=== PATIENT | female | born 1945 | race Caucasian/White ===

== ENCOUNTER 2019-12-04 00:34 | Inpatient (IN) | payer MEDICARE, SELFPAY ==
[2019-12-04] VITALS (19 sets, daily range): BP systolic 162–203; BP diastolic 52–88; PULSE 57–92; RESP 16–20; TEMP 35.9–36.6; O2SAT 99–100; BMI 23.8
--- NOTE | ~2019-12-04 | MR_ITS ---
EXAMINATION: MR brain/brain stem wo/w con DATE: 12/04/2019 10:16 INDICATION: Right-sided facial droop and slurred speech TECHNIQUE: Magnetic resonance imaging (MRI) of the brain and brainstem was performed with 10 cc of Mu ltiHance intravenous contrast. Sequences included sagittal and axial T1-weighted SE, axial diffusion- weighted FS EPI ASSET, axial T2*-weighted GRE, axial T2-weighted FLAIR Propeller, and axial T2-weight ed Propeller. Postcontrast axial and coronal T1-weighted SE was obtained. Apparent diffusion coeffici ent (ADC) maps were created. COMPARISON: None. FINDINGS: There is a small area of restricted diffusion in the left frontal lobe. There is no acute h emorrhage seen on the T2*, a hemosiderin sensitive sequence. The ventricles are normal in size. There are no extra-axial collections. Flow voids are seen in the cerebral arteries on the T2-weighted sequ ences consistent with their expected patency. Visualized orbits and soft tissues are unremarkable. Th ere are scattered areas of nonspecific increased T2-weighted signal intensity in the cerebral white m atter. A 7 mm parafalcine mass is again noted to the left of midline with MR features of a meningioma . IMPRESSION: 1. Small acute infarct in the left frontal lobe. Reviewed, dictated and finalized at location A.
--- NOTE | ~2019-12-04 | CT_ITS ---
EXAMINATION: CT abdomen pelvis wo con DATE: 12/05/2019 09:37 INDICATION: Intermittent nausea and vomiting TECHNIQUE: Computed tomography (CT) of the abdomen and pelvis was performed without intravenous contr ast. The dose-length product (DLP) was 263.53 mGy-cm. Automated exposure control and iterative recons truction technique were employed. COMPARISON: None FINDINGS: There are small pleural effusions. Mild dependent atelectasis is noted. There is cardiomega ly. Calcified coronary artery calcifications are seen. There is also calcification of the mitral jie love. The liver, spleen, pancreas, and adrenal glands are normal. A stone is present in the nondistend ed gallbladder. The kidneys are unremarkable. There is irregular wall thickening of the cecum and asc ending colon. There is an approximately 4.8 x 4.7 cm abscess in the right pericolic gutter. There are mildly prominent adjacent mesenteric lymph nodes. The appendix is normal. There are no dilated loops of bowel. There is mild lumbar spondylosis. IMPRESSION: 1. Wall thickening of the ascending colon and cecum which could reflect malignancy or inflammation. 2. Right pericolic gutter abscess contiguous with the irregular segment of colon. Consider GI and esteban gical consultation. These findings were discussed with Kay Horne PA-C at 13:27 hours on 12/05/2019. Reviewed, dictated and finalized at location A. IMPRESSION: 1. Wall thickening of the ascending colon and cecum which could reflect maligna ncy or inflammation. 2. Right pericolic gutter abscess contiguous with the irregular segment of colo n. Consider GI and surgical consultation. These findings were discussed with Kay Horne PA-C at 13:27 hours on .
--- NOTE | ~2019-12-04 | US_ITS ---
EXAMINATION:US venous doppler LE BI INDICATION:Stroke. TECHNIQUE: Multiple grayscale, color flow and Doppler images of the lower extremity deep venous syste ms were obtained and reviewed. COMPARISON:No prior studies for comparison. FINDINGS: The common femoral, superficial femoral and popliteal veins demonstrate normal respiratory variation, augmentation and compressibility. Color flow is also seen within the posterior tibial, pe roneal, greater saphenous and profunda veins. There is a Orta's cyst left popliteal fossa measuring 2.2 x 1.2 x 1.4 cm. IMPRESSION: 1: No lower extremity deep venous thrombosis. Reviewed, dictated and finalized at location A.
--- NOTE | ~2019-12-04 | XR_ITS ---
Water-soluble contrast enema INDICATION: Right paracolic abscess. Right flank discomfort. TECHNIQUE: Examination of the colon utilizing water-soluble contrast technique. COMPARISON: CT dated 12/05/2019 FINDINGS: The entire colon was filled, distending normally. No extrinsic mass effect is noted. There is persistent narrowing of the ascending colon with apple core appearance, concerning for malignancy . No extravasation of contrast is identified. There is no evidence of polyp, stricture, extravasatio n, obstruction or persistent mucosal abnormality. There is a pigtail catheter overlying the right fla nk near the ascending colon. IMPRESSION: 1: No evidence for contrast extravasation. Abnormal narrowing of the ascending colon with mucosal milena uldering, suspicious for malignancy. Reviewed, dictated and finalized at location A. IMPRESSION: 1: No evidence for contrast extravasation. Abnormal narrowing of the ascending colon with mucosal shouldering, suspicious for malignancy.
--- NOTE | ~2019-12-04 | CT_ITS ---
EXAMINATION: CT guide absc cath placement DATE: 12/06/2019 14:53 INDICATION: Right paracolic abscess. TECHNIQUE: The procedure including the risks, benefits, and alternatives was discussed with the patie nt. Risks discussed included bleeding and infection. The patient understood the risks and benefits an d agreed to proceed. The patient was confirmed to be receiving appropriate antibiotic coverage. The skin overlying the abdomen was prepped and draped in usual sterile fashion. Anesthetic was administe red with 1% lidocaine subcutaneously. An 18 gauge trochar needle was inserted into the right paracoli c abscess with CT guidance. The needle was exchanged over a wire for 6 Scottish, 8 Scottish, and 9 Scottish dilators and then for an 8.5 Scottish pigtail catheter. The catheter was stitched to the skin, and a s terile dressing was applied. The mA was adjusted according to patient size. Iterative reconstruction technique was employed. The dose-length product was 123.90 mGy-cm. There were no immediate complicati ons. FINDINGS: CT images demonstrate the catheter within the fluid collection. 6 mL fluid was aspirated fo r testing. IMPRESSION: 1. Successful CT-guided abscess drainage. 2. 6 mL lockwood, opaque, foul-smelling fluid was sent for aerobic and anaerobic cultures. Reviewed, dictated and finalized at location A. IMPRESSION: 1. Successful CT-guided abscess drainage. 2. 6 mL lockwood, opaque, foul-smelling fluid was sent for aerobic and anaerobic cul tures.
--- NOTE | ~2019-12-04 | US_ITS ---
EXAMINATION: US carotid duplex BI DATE: 12/04/2019 13:44 INDICATION: Slurred speech, right facial droop. TECHNIQUE: Grayscale, color Doppler, and pulsed Doppler images of the cervical carotid arteries were obtained. The degree of vessel stenosis is placed in one of the following categories: normal, <50%, 5 0-69%, >=70% but less than near-occlusion, near-occlusion, or total occlusion. Note that percent sten osis relative to normal distal artery lumen diameter is indirectly measured from velocity measurement s as described by Miki, et al. Radiology 2003; 229:340-346. COMPARISON: 12/04/2019 CT brain FINDINGS: There is mild plaque at the carotid bulbs and proximal internal carotid arteries. RIGHT: The right common carotid artery (CCA) peak systolic velocity (PSV) is 63.6 cm/s. The right internal c arotid artery (ICA) PSV is 90 cm/s. The right ICA end-diastolic velocity (EDV) is 20.9 cm/s. The rig t ICA/CCA PSV ratio is 1.4. Grayscale and color Doppler images yield an estimate of less than 50% sangeeta meter reduction from plaque in the ICA. The external carotid artery (ECA) PSV is 98.4 cm/s. There is antegrade flow in the right vertebral artery. LEFT: The left CCA PSV is 75.5 cm/s. The left ICA PSV is 97.3 cm/s. The left ICA EDV is 16.4 cm/s. The left ICA/CCA PSV ratio is 1.3. Grayscale and color Doppler images yield an estimate of less than 50% diam eter reduction from plaque in the ICA. The ECA PSV is 87.2 cm/s. There is antegrade flow in the left vertebral artery. IMPRESSION: 1. Less than 50% stenosis in the right internal carotid artery. 2. Less than 50% stenosis in the left internal carotid artery. Reviewed, dictated and finalized at Location A. Reviewed, dictated and finalized at location A.
--- NOTE | ~2019-12-04 | CT_ITS ---
EXAMINATION: CT brain wo con INDICATION: Slurred speech and right-sided facial droop COMPARISON: None TECHNIQUE: Standard unenhanced head CT. The dose-length product (DLP) was 605.33 mGy-cm. The mA was a djusted according to patient size. Iterative reconstruction technique was employed. FINDINGS: There is no acute intraparenchymal hemorrhage. No evidence of acute infarction. There is a 7 mm hyperdense, parafalcine mass to the left of midline adjacent to the left frontal lobe. There is mild periventricular and subcortical hypodensity probably related to small vessel ischemic disease. T here is mild prominence of the sulci and ventricles related to cerebral atrophy. Intracranial calcifi ed cerebral atherosclerosis is noted. There are no extra-axial collections. There is no mass effect o r midline shift. The orbits and soft tissues are unremarkable. The visualized sinuses and mastoid ai r cells are well aerated. IMPRESSION: 1. No acute intracranial abnormality. 2. Age related findings. 3. Hyperdense left parafalcine mass most consistent with a meningioma. Reviewed, dictated and finalized at location A.
--- NOTE | 2019-12-04 00:40 | PC.NURSE ---
PER DR MERCADO NO ED PROTOCOL TO BE STARTED AT THIS TIME
--- NOTE | 2019-12-04 01:27 | ECG_ITS ---
Measurements Intervals [place] Rate: 96 P: 54 TX: 182 QRS: -29 QRSD: 101 T: 50 QT: 380 QTc: 480 Interpretive Statements SINUS RHYTHM POSSIBLE LEFT ATRIAL ENLARGEMENT INCOMPLETE RIGHT BUNDLE BRANCH BLOCK BORDERLINE R WAVE PROGRESSION, ANTERIOR LEADS BORDERLINE ECG Electronically Signed On 12-04-2019 8:53:15 CDT by Quincy Clarke D.O.
[2019-12-04 01:56] LABS: Basophils Absolute Auto 0.1 K/mm3 (0.0-0.1); Basophils Percent Auto 0.5 % (0.2-1.2); Eosinophils Absolute Auto 0.1 K/mm3 (0-0.3); Eosinophils Percent Auto 0.8 % (0-4.4); Hematocrit 22.2 % (37.0-47.0); Immature Granulocyte Absolute 0.22 K/mm3 (0.00-0.031); Immature Granulocyte Percent A 2.2 % (0-0.5); Mean Corpuscular HGB Conc 29.7 g/dl (32-36); Mean Corpuscular Hemoglobin 23.7 pg (26-34); Mean Corpuscular Volume 79.9 fl (80-100); Mean Platelet Volume 8.5 fl (7.4-10.4); Monocytes Absolute Auto 0.9 K/mm3 (0.1-0.6); Monocytes Percent Auto 9.4 % (2.6-8.5); Neutrophils Absolute Auto 7.5 K/mm3 (1.3-6.7); Neutrophils Percent Auto 75.1 % (45.5-73.1); Platelet Count Result 642 k/mm3 (150-375); Red Blood Count 2.78 M/mm3 (4.2-5.4); Red Cell Distribution Width 16.1 % (11.5-14.5)
[2019-12-04 01:57] LABS: Add Urine Microscopic? NO; Appearance Urine Clear (Clear); Bilirubin Urine Negative (Negative); Blood Urine Negative (Negative); Color Urine Colorless (Yellow); Glucose Urine UA Negative (Negative); Ketones Urine Negative (Negative); Leukocyte Esterase Ur Negative LEU/UL (Negative); Nitrate Urine Negative (Negative); Protein Urine Negative (Negative); Urobilinogen Urine Negative mg/dL (<2.0)
[2019-12-04 02:14] LABS: INR 1.2; Prothrombin Time 14.6 Seconds (11.1-14.7)
[2019-12-04 02:15] LABS: Specific Grav Ur 1.004 (1.001-1.035)
[2019-12-04 02:18] LABS: Alanine Aminotransferase 14 U/L (4-35); Alkaline Phosphatase 189 U/L (38-126); Aspartate Amino Transferase 20 U/L (14-36); Bilirubin,Total 0.2 mg/dL (0.2-1.3); Blood Urea Nitrogen 12 mg/dL (7-17); Calcium 8.7 mg/dL (8.4-10.2); Carbon Dioxide 26 mmol/L (22-30); Chloride 101 mmol/L (98-107); Estimated Glomerular Filt Rate > 60; Glucose 140 mg/dL (65-105); Potassium 2.8 mmol/L (3.4-5.0); Sodium 135 mmol/L (137-145)
--- NOTE | 2019-12-04 02:19 | ED.NEUROSD ---
HPI - Neuro Symptoms/Deficit General Chief Complaint: Suspected CVA Stated Complaint: R/O CVA Time Seen by Provider: 12/04/19 00:39 Source: patient Mode of arrival: ambulatory Limitations: no limitations History of Present Illness HPI Narrative: Patient is a 74-year-old female who presents to the emergency department via EMS for possible CVA. Patient and granddaughter provided history. Granddaughter reports that patient was on the phone with someone who noticed that her speech sounded slurred and contacted her. When she evaluated patient around 7 PM this evening she noted she had a right-sided facial droop and slurred speech. Granddaughter reports having spoke to patient around perhaps 3 PM this afternoon at which time she sounded normal. Patient has not noticed the slurred speech or facial droop and denies weakness or other symptoms. 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 Patient has not seen a doctor in quite some time and recently saw primary care physician for new appointment yesterday who scheduled blood work and a CT scan. Patient has been having intermittent episodes of nausea, vomiting, and diarrhea lasting a few days occurring every few weeks for the past 6 to 7 months. Granddaughter reports patient had a fever of 103 approximately 1 week ago. Onset (ago): hour(s) Last Observed Normal: 15:00 Location: speech and right face Relieving factors: none Exacerbating factors: none Associated symptoms: denies other symptoms Treatments Prior to Arrival: none Related Data Home Medications Medication Instructions Recorded Confirmed No Home Medications 12/04/19 12/04/19 Allergies Allergy/AdvReac Type Severity Reaction Status Date / Time No Known Allergies Allergy Verified 12/04/19 00:49 Review of Systems Review of Systems: All systems reviewed & are unremarkable except as noted in HPI and below Constitutional: Constitutional: Reports fever(s) Cardiovascular: Cardiovascular: Denies chest pain Respiratory: Respiratory: Denies cough and Denies dyspnea Gastrointestinal: Gastrointestinal: Reports diarrhea, Reports nausea and Reports vomiting Neurologic: Reports Abnormal speech present PMFSH Past Medical History Medical History (Updated 12/04/19 @ 05:19 by Audrey Coello MD) No significant past medical history Surgical History Surgical History (Updated 12/04/19 @ 02:43 by Audrey Coello MD) History of tubal ligation Social History Social History (Updated 12/04/19 @ 02:44 by Audrey Coello MD) Smoking status: Never smoker Alcohol intake: never Substance use: never Substance use type: does not use Gender identity (if verbalized by the patient): Female Spiritual care concerns: No Agree to blood products: Yes Exam Const: General: cooperative, no acute distress and alert Nutritional Appearance: well nourished Orientation/consciousness: patient oriented x3 Limitations: no limitations HENMT: Mouth: Yes lip normal and Yes dry mucous membranes Eyes: Conjunctivae: conjunctivae normal Pupils: Equal, round and reactive pupils present EOM: EOMs intact bilaterally Resp: Effort & Inspection: normal respiratory effort Auscultation: clear to auscultation bilaterally Cardio: Rate: regular rate Rhythm: regular rhythm GI: GI Palp: Yes Soft to palpation and No Tenderness to palpation present (GI) Auscultation: normal bowel sounds Skin: General skin exam: normal color Neuro: General: patient oriented x3 Cranial nerves: Yes Individual cranial nerve findings present VII: abnormal (Right facial droop with forehead sparing) Cognition (Neuro): normal cognition Speech: Abnormal speech present slurred and No aphasia Motor exam (neuro): 5/5 motor strength present throughout and Pronator motor function not present Sensory Exam: normal sensation Coordination: [id number] test normal Extrem: General: normal to
--- NOTE | 2019-12-04 02:33 | PC.NURSE ---
laboratory is waiting on the color maker dyer to run pt's CBC
[2019-12-04 02:37] LABS: Hemoglobin 6.6 g/dL (12.0-15.0)
[2019-12-04] MEDS: LABETALOL HCL INJ 100 MG/20 ML VIAL 10 MG IV PUSH ×2 (02:44→06:08)
[2019-12-04] MEDS: SODIUM CHLORIDE 0.9% IV 1,000 ML 125 ML IV CONT (02:44)
[2019-12-04 03:57] LABS: Magnesium 1.9 mg/dL (1.6-2.3)
[2019-12-04 03:58] LABS: Iron 15 ug/dL (37-170)
[2019-12-04 04:07] LABS: Percent Iron Saturation 6 % (20-50)
--- NOTE | 2019-12-04 04:31 | ADMGEN ---
This patient, Darline Domínguez, [facility] @ [facility]. Patient/family oriented to hospital policies and general routines including ID bracelet, bed and alarms, visiting hours, pain management, procedures, bathroom and other care routines, personal items, smoking policy, room service/diet, and visiting hours. Valuables list has been completed. Information on how to activate the Rapid Response Team has been discussed. Patient/Family are encouraged to report perceived risks to care and to ask questions if they do not understand what they are told or what they should do.
[2019-12-04 05:03] LABS: Folic Acid 12.9 ng/mL (2.76->20)
[2019-12-04] MEDS: SODIUM CHLORIDE 0.9% IV 250 ML 30 ML IV CONT (05:50)
[2019-12-04 08:01] LABS: Alanine Aminotransferase 13 U/L (4-35); Albumin Level 2.8 g/dL (3.5-5.1); Alkaline Phosphatase 159 U/L (38-126); Aspartate Amino Transferase 20 U/L (14-36); Bilirubin,Total 0.2 mg/dL (0.2-1.3); Blood Urea Nitrogen 9 mg/dL (7-17); Calcium 8.3 mg/dL (8.4-10.2); Carbon Dioxide 27 mmol/L (22-30); Chloride 104 mmol/L (98-107); Estimated CRCL calculation 60 ml/min; Estimated Glomerular Filt Rate > 60; Glucose 133 mg/dL (65-105); Potassium 3.3 mmol/L (3.4-5.0); Sodium 136 mmol/L (137-145)
[2019-12-04] MEDS: POTASSIUM CHLORIDE 20 MEQ TABLET 60 MEQ PO (08:39)
[2019-12-04] MEDS: hydrALAZINE HCL 20 MG/ML VIAL 10 MG IV PUSH (08:39)
[2019-12-04 10:54] LABS: Hematocrit 27.4 % (37.0-47.0); Hemoglobin 8.5 g/dL (12.0-15.0); Mean Corpuscular Hemoglobin 24.2 pg (26-34); Mean Corpuscular Volume 78.1 fl (80-100); Mean Platelet Volume 8.3 fl (7.4-10.4); Platelet Count Result 622 k/mm3 (150-375); Red Blood Count 3.51 M/mm3 (4.2-5.4); Red Cell Distribution Width 16.7 % (11.5-14.5); White Blood Count 11.6 K/mm3 (4.5-10.0)
[2019-12-04 11:06] LABS: Blood Urea Nitrogen 9 mg/dL (7-17); Calcium 8.3 mg/dL (8.4-10.2); Carbon Dioxide 25 mmol/L (22-30); Chloride 104 mmol/L (98-107); Estimated CRCL calculation 60 ml/min; Estimated Glomerular Filt Rate > 60; Glucose 116 mg/dL (65-105); Potassium 3.4 mmol/L (3.4-5.0); Sodium 135 mmol/L (137-145)
--- NOTE | 2019-12-04 11:49 | PM.IMHP ---
H&P: HPI History of Present Illness Chief complaint: Slurred speech, R facial droop Narrative: Date of Service 12/04/19 8790 The supervising physician for this history and physical is Dr Chaim Akins. Ms. Domínguez is a 74yo right-handed F who presented to the ED for evaluation of slurred speech and right facial droop. She has no previously known medical diagnoses and takes no home medications but has not been to a doctor in over 20 years. She presented to the ED yesterday after family members noted her to have slurred speech on the phone and then noticed right-sided facial droop. The patient mentions that she did not feel like anything was wrong and did not notice her speech was different. This has since resolved and her speech is clear during my encounter. Last known well was unclear, therefore outside of the time window for any intervention on arrival. She notes that she is normally independent at home by herself, walks without a cane or walker and tells me she was not having any issues with walking yesterday. She notices no arm or leg weakness. She describes no issues with speech, vision, or swallowing. She denies chest pain, palpitations, shortness of breath, or cough. She reports she has been eating and drinking well at home and denies any nausea, hematochezia, or melena. Denies any dizziness, lightheadedness, or headache. She does note that she will have intermittent episodes of nausea, vomiting, and diarrhea that will last a few days and occur once or twice a month for the last 6 months. She notes none of these GI symptoms in the last 1 week. She has not seen a doctor in many years but recently, just a few days ago, she established with Dr. Vogt. No fevers or sick contacts. MRI brain has already been obtained prior to my encounter and demonstrates small acute infarct in the left frontal lobe. Neurology consulted. Routine labs on arrival are significant for a profound microcytic anemia with Hgb 6.6 and she has already received 1 unit of packed RBC. Potassium 2.8 on arrival which was replaced parenterally and now up to 3.4 this morning. Blood pressures were quite elevated in the ED with systolic pressures up to 203, improved after Labetalol x 2 in the ED. Mrs. Domínguez is admitted for acute CVA, severe anemia, and hypokalemia. Contacted patient's granddaughter, Salud, and provided an update. Review of Systems Review of Systems: Narrative: Patient offers no complaints. No dizziness, lightheadedness, headache, or vision changes. She wears glasses. Slurred speech is resolved, denies dysphagia. No chest pain, shortness of breath, palpitations, cough, or fevers. No abdominal pain, nausea, vomiting, diarrhea, hematochezia, melena today. No dysuria or hematuria. Twelve systems were reviewed with pertinent positives and negatives as per HPI. Except as documented, all other systems were reviewed and are negative. [facility] Past Medical History Medical History (Updated 12/04/19 @ 12:15 by Kay Horne PA-C) Acute CVA (cerebrovascular accident) Meningioma No significant past medical history Has not seen a doctor in 20 years prior to establishing with Dr. Vogt this week. Severe anemia Surgical History Surgical History History of tubal ligation 1972 Family History Family History (Updated 12/04/19 @ 20:21 by Kay Horne PA-C) Son Cancer Daughter Cerebrovascular accident Social History Social History (Updated 12/04/19 @ 12:08 by Kay Horne PA-C) Social History: Ms. Domínguez lives at home by herself in [place]. She denies alcohol or substance use. Never smoker. She tells me she walks independently without a cane or walker normally. She has a granddaughter, Salud, who checks in on her. She designates Salud to be her surrogate decision maker. We discussed code status and Ms. Domínguez wishes to make her code status Do Not Resuscitate. Smoking status: Ne
[2019-12-04] MEDS: ASPIRIN 81 MG ENTERIC TABLET PO (11:56)
[2019-12-04] MEDS: IRON SUCROSE COMPLEX 100 MG in SODIUM CHLORIDE 0.9% IV 50 ML 220 MG IVPB (12:48)
--- NOTE | 2019-12-04 13:14 | CONS_ITS ---
DATE OF CONSULTATION: 12/04/2019 HISTORY OF PRESENT ILLNESS: A 74-year-old right-handed female has been admitted to [facility] through the emergency room where she was brought by the EMS for the complaint of possible cerebrovascular accident. The granddaughter reported the patient was on the phone with someone who noted that her speech was slurred and they contacted her. When she herself evaluated the patient around 7 p.m., she had a right-sided facial droop along with the slurred speech. Granddaughter had spoken to the patient around 3 p.m. and at that time she was completely normal. 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 The patient has not seen any physician for a while. She has been experiencing intermittent nausea and vomiting along with the diarrhea for several days in addition to the history of in the past, never smoking, never drinking, tubal ligation. Evaluation up until now includes CBC without leukocytosis. INR 1.2 with APTT 36.0. The magnesium 1.9. B12 371.0, folate 12.9. Basic metabolic panel with sodium only 135, potassium 2.8, GFR more than 60, glucose 140, calcium 8.7, iron 15, iron binding capacity 272 with ferritin of 40.8. Total bilirubin 0.2, AST 20, ALT 14, alkaline phos 189, total protein 6 with albumin 3.0. UA negative. She had an EKG, which was sinus rhythm. CT of the brain with no bleed, no infarct. CT of the cervical spine, 7 mm left frontal parafalcine mass, possibly meningioma, incompletely characterized. MRI suggested. PHYSICAL EXAMINATION: GENERAL: Today, she is awake, alert, cooperative, in no obvious acute distress. HEENT: Head normocephalic with no cranial bruits. Ear, nose, throat examination normal. NECK: Supple with no cervical bruits. No thyromegaly. No lymphadenopathy. HEART: Regular. LUNGS: Clear. ABDOMEN: Soft. NEUROLOGICAL: She is awake, alert, able to follow the verbal commands. Speech of low volume, but not dysphasic, not dysarthric. Pupils round, regular. Concepcion of vision full. Extraocular movements full. Face symmetrical. Tongue midline. Motor examination revealed her generally to be weak, but no focal motor deficit. Sluggish reflexes and downgoing plantar responses. No obvious focal neurological deficit at this particular time, but considering the history one could consider the possible TIA, but in addition, she has been found to have the abnormal CT scan, that is 7 mm left frontal parafalcine mass, possibly meningioma. MRI will be necessary to rule out the possibility of further involvement. Whether it causes the focal seizure is unclear. At this stage, the patient is receiving the medication as such. After the MRI, further recommendation will be made. KONRAD QUINTERO M.D. SCHEDULING CLERK SCHEDULING CLERK D I MT: [place]
[2019-12-05] VITALS (9 sets, daily range): BP systolic 170–196; BP diastolic 60–82; PULSE 76–100; RESP 18–21; TEMP 36.3–36.8; O2SAT 97–100
[2019-12-05 04:52] LABS: Basophils Absolute Auto 0.1 K/mm3 (0.0-0.1); Basophils Percent Auto 0.6 % (0.2-1.2); Eosinophils Absolute Auto 0.3 K/mm3 (0-0.3); Eosinophils Percent Auto 3.1 % (0-4.4); Hematocrit 24.7 % (37.0-47.0); Hemoglobin 7.4 g/dL (12.0-15.0); Immature Granulocyte Absolute 0.39 K/mm3 (0.00-0.031); Immature Granulocyte Percent A 4.6 % (0-0.5); Lymphocytes Absolute Auto 1.56 K/mm3 (0.9-3.2); Lymphocytes Percent Auto 18.5 % (18.3-44.2); Mean Corpuscular Hemoglobin 23.8 pg (26-34); Mean Corpuscular Volume 79.4 fl (80-100); Mean Platelet Volume 8.5 fl (7.4-10.4); Monocytes Absolute Auto 0.7 K/mm3 (0.1-0.6); Monocytes Percent Auto 8.6 % (2.6-8.5); Neutrophils Absolute Auto 5.4 K/mm3 (1.3-6.7); Neutrophils Percent Auto 64.6 % (45.5-73.1); Platelet Count Result 517 k/mm3 (150-375); Red Blood Count 3.11 M/mm3 (4.2-5.4); Red Cell Distribution Width 16.9 % (11.5-14.5); White Blood Count 8.4 K/mm3 (4.5-10.0)
[2019-12-05 05:05] LABS: Blood Urea Nitrogen 6 mg/dL (7-17); Calcium 8.3 mg/dL (8.4-10.2); Carbon Dioxide 28 mmol/L (22-30); Chloride 104 mmol/L (98-107); Cholesterol 111 mg/dL (0-200); Estimated CRCL calculation 60 ml/min; Estimated Glomerular Filt Rate > 60; Glucose 84 mg/dL (65-105); HDL Direct 32 mg/dL; Magnesium 1.6 mg/dL (1.6-2.3); Phosphorus 3.5 mg/dL (2.5-4.5); Potassium 3.6 mmol/L (3.4-5.0); Sodium 136 mmol/L (137-145); Triglycerides 60 mg/dL (<150)
[2019-12-05 05:15] LABS: LDL Cholesterol Direct 65 mg/dL
[2019-12-05 05:55] LABS: Thyroid Stimulating Hormone Reflex 0.962 uIU/mL (0.465-4.68)
[2019-12-05] MEDS: MAGNESIUM SULF 2 GM/WATER 50ML 2 GM/50 ML BAG IVPB (07:54)
[2019-12-05] MEDS: ASPIRIN 81 MG ENTERIC TABLET PO (08:00)
[2019-12-05] MEDS: ATORVASTATIN 20 MG TABLET PO (08:00)
[2019-12-05] MEDS: IRON SUCROSE COMPLEX 100 MG in SODIUM CHLORIDE 0.9% IV 50 ML 220 MG IVPB (11:59)
--- NOTE | 2019-12-05 12:07 | WPDNEUROPN ---
Progress Note: A&P Assessment and Plan (1) Meningioma: Code(s): D32.9 - Benign neoplasm of meninges, unspecified Status: Suspected (2) DVT prophylaxis: Code(s): Z29.9 - Encounter for prophylactic measures, unspecified Status: Acute (3) Severe anemia: Code(s): D64.9 - Anemia, unspecified Status: Acute (4) Acute CVA (cerebrovascular accident): Code(s): I63.9 - Cerebral infarction, unspecified Status: Acute (5) Elevated blood-pressure reading without diagnosis of hypertension: Code(s): R03.0 - Elevated blood-pressure reading, without diagnosis of hypertension Status: Acute (6) Acute hypokalemia: Code(s): E87.6 - Hypokalemia Status: Acute Additional Plan stable Review of Systems Review of Systems: All systems reviewed & are unremarkable except as noted in HPI and below Exam Const: General: cooperative, comfortable, no acute distress, alert and awake Nutritional Appearance: underweight Orientation/consciousness: oriented to person and oriented to place Eyes: General: appearance normal, both eyes and all related structures Neck: Neck: full ROM Resp: Effort & Inspection: normal respiratory effort and able to speak in complete sentences Auscultation: clear to auscultation bilaterally Cardio: Rhythm: regular rhythm GI: Auscultation: normal bowel sounds Skin: General skin exam: no rashes or lesions noted Neuro: General: oriented to person, oriented to place and moves all extremities Cranial nerves: Yes CN's II-XII intact bilaterally, Yes Equal, round and reactive pupils present, Yes Bilaterally intact EOM present, Yes Nystagmus not present, Yes Normal facial strength present, Yes Midline tongue present and Yes Ability to bilaterally rotate head present Cognition (Neuro): normal cognition Speech: normal speech Gait exam (Neuro): Unable to assess gait Motor exam (neuro): Abnormal motor strength present (decreased) Sensory Exam: normal sensation Deep tendon reflexes (DTR's): Right triceps reflex intensity grade: 1+, Left triceps reflex intensity grade: 1+, Rt Biceps (C5, C6): 1+, Left biceps reflex intensity grade: 1+, Right brachioradialis reflex intensity grade: 1+, Left brachioradialis reflex intensity grade: 1+, Right patellar reflex intensity grade: 1+, Left patellar reflex intensity grade: 1+, Right ankle reflex intensity grade: 1+ and Left ankle reflex intensity grade: 1+ Plantar Reflex Responses: downgoing: bilateral Psych: Appearance: grossly normal Speech and movement: Normal speech and movement present Affect: normal affect Attitude: cooperative Thought process: Normal thought process present Thought content: Yes Normal thought content present Insight: Good insight present (Psych) Judgement: Good judgement present (Psych) Objective Data Vital Signs Vital Signs: Vital Signs - 24 hr 12/04/19 14:00 12/04/19 16:00 12/04/19 20:00 Temperature 36.6 C Pulse Rate 86 89 81 Respiratory Rate 18 Blood Pressure 180/82 H Pulse Oximetry 99 12/04/19 22:00 12/05/19 00:00 12/05/19 04:00 Temperature 36.4 C L Pulse Rate 57 L 78 76 Respiratory Rate 20 Blood Pressure 176/56 H Pulse Oximetry 99 12/05/19 06:00 12/05/19 08:00 Temperature 36.3 C L Pulse Rate 82 82 Respiratory Rate 21 H Blood Pressure 181/60 H Pulse Oximetry 100 Intake/Output Intake/Output: Intake & Output 12/02/19 12/03/19 12/04/19 12/05/19 23:59 23:59 23:59 23:59 Intake Total 3863 400 Output Total 801 800 Balance 3062 -400 Meds/Results Medications: Active Medications Generic Name Dose Route Start Last Admin Trade Name Freq PRN Reason Stop Dose Admin Aspirin 81 mg 12/04/19 10:55 12/05/19 08:00 Aspirin Ec PO 81 mg QAM BABAR Administration Atorvastatin Calcium 20 mg 12/05/19 09:00 12/05/19 08:00 Lipitor PO 20 mg DAILY BABAR Administration Hydralazine HCl 10 mg 12/04/19 07:29 12/04/19 08:39 Apreso
--- NOTE | 2019-12-05 12:58 | P.PNIM_ITS ---
Progress Note: A&P Assessment and Plan (1) Abdominal abscess: Status: Acute Assessment and Plan: * CT abdomen/pelvis demonstrates wall thickening of ascending colon and cecum (malignancy vs. inflammation) and a 4.8 x 4.7 cm abscess in the right pericoli c gutter near this irregular segment. * Patient has episodes of nausea, vomiting, diarrhea that last 3 or 4 days and occur every 5 to 7 weeks over the last 6 months for which she has received no treatment or previous workup. Her granddaughter notes that she had these symptoms last weekend along with a fever. * Given her iron deficiency anemia and lack of healthcare follow-up, concerning for GI malignancy. She has never had a colonoscopy and reluctant to have one. Could also be colitis/diverticulitis? * Contacted Dr Brandon, agreed for surgical consultation. Contacted Dr. Mckeon, agreed for GI consultation. Appreciate both specialties inputs. * Obtain stat blood cultures, lactic acid, start IV Zosyn, NPO. Edit: Contacted granddaughter, Salud, for an update with these new findings. (2) Acute CVA (cerebrovascular accident): Code(s): I63.9 - Cerebral infarction, unspecified Status: Acute Assessment and Plan: * Patient presents with slurred speech and right-sided facial droop. Slurred speech is resolved. Facial droop persists today. * MRI brain shows small acute infarct in the left frontal lobe. * No arrhythmia noted on telemetry. Carotid ultrasound normal. Echocardiogram with bubble study not able to be obtained until tomorrow. * Start ASA 81 mg daily. Lipid panel within normal limits this AM. Started atorvastatin for stroke risk reduction. (now on hold, NPO for surgical consultation tomorrow). * PT/OT evaluations appreciated. Neurology consulted - appreciate input. (3) Severe anemia: Code(s): D64.9 - Anemia, unspecified Status: Acute Assessment and Plan: * Patient presents with Hgb 6.6 on arrival. Received 1 unit packed RBC 12/03 - Hgb 7.4 this AM. * Recheck CBC in AM. * Iron is low, TIBC low-normal, consistent with iron deficiency anemia. No evidence of acute bleeding. Unsure of chronicity as patient has not seen a doctor in many years prior to this week. * Continue IV iron. Fe sulfate at discharge. * Recommend routine screening for colonoscopy as an outpatient. Patient tells me she won't do this. Suggest cologuard from PCP. Edit: See above regarding GI consultation now regarding the new CT findings. (4) Acute hypokalemia: Code(s): E87.6 - Hypokalemia Status: Acute Assessment and Plan: * Stable at 3.6 today. Recheck in AM. (5) Elevated blood-pressure reading without diagnosis of hypertension: Code(s): R03.0 - Elevated blood-pressure reading, without diagnosis of hypertension Status: Acute Assessment and Plan: * BP elevated to 203/68 on arrival in the setting of acute CVA; received labetalol x2 in the ED. * BPs still elevated, allowing for permissive hypertension today. PRN hydralazine available for extremely high BP. * Continue to monitor blood pressure and adjust treatment as needed. (6) Meningioma: Code(s): D32.9 - Benign neoplasm of meninges, unspecified Status: Suspected Assessment and Plan: * 7 mm mass noted on MRI brain most consistent with a meningioma, no edema or midline shift. * Unsure of chronicity; not felt to be contributing to her acute symptoms. Recommend outpatient monitoring with imaging in th
--- NOTE | 2019-12-05 12:58 | PM.IMPN ---
Progress Note: A&P Assessment and Plan (1) Abdominal abscess: Status: Acute Assessment and Plan: CT abdomen/pelvis demonstrates wall thickening of ascending colon and cecum (malignancy vs. inflammation) and a 4.8 x 4.7 cm abscess in the right pericolic gutter near this irregular segment. Patient has episodes of nausea, vomiting, diarrhea that last 3 or 4 days and occur every 5 to 7 weeks over the last 6 months for which she has received no treatment or previous workup. Her granddaughter notes that she had these symptoms last weekend along with a fever. Given her iron deficiency anemia and lack of healthcare follow-up, concerning for GI malignancy. She has never had a colonoscopy and reluctant to have one. Could also be colitis/diverticulitis? Contacted Dr Brandon, agreed for surgical consultation. Contacted Dr. Mckeon, agreed for GI consultation. Appreciate both specialties inputs. Obtain stat blood cultures, lactic acid, start IV Zosyn, NPO. Edit: Contacted granddaughter, Salud, for an update with these new findings. (2) Acute CVA (cerebrovascular accident): Code(s): I63.9 - Cerebral infarction, unspecified Status: Acute Assessment and Plan: Patient presents with slurred speech and right-sided facial droop. Slurred speech is resolved. Facial droop persists today. MRI brain shows small acute infarct in the left frontal lobe. No arrhythmia noted on telemetry. Carotid ultrasound normal. Echocardiogram with bubble study not able to be obtained until tomorrow. Start ASA 81 mg daily. Lipid panel within normal limits this AM. Started atorvastatin for stroke risk reduction. (now on hold, NPO for surgical consultation tomorrow). PT/OT evaluations appreciated. Neurology consulted - appreciate input. (3) Severe anemia: Code(s): D64.9 - Anemia, unspecified Status: Acute Assessment and Plan: Patient presents with Hgb 6.6 on arrival. Received 1 unit packed RBC 12/03 - Hgb 7.4 this AM. Recheck CBC in AM. Iron is low, TIBC low-normal, consistent with iron deficiency anemia. No evidence of acute bleeding. Unsure of chronicity as patient has not seen a doctor in many years prior to this week. Continue IV iron. Fe sulfate at discharge. Recommend routine screening for colonoscopy as an outpatient. Patient tells me she won't do this. Suggest cologuard from PCP. Edit: See above regarding GI consultation now regarding the new CT findings. (4) Acute hypokalemia: Code(s): E87.6 - Hypokalemia Status: Acute Assessment and Plan: Stable at 3.6 today. Recheck in AM. (5) Elevated blood-pressure reading without diagnosis of hypertension: Code(s): R03.0 - Elevated blood-pressure reading, without diagnosis of hypertension Status: Acute Assessment and Plan: BP elevated to 203/68 on arrival in the setting of acute CVA; received labetalol x2 in the ED. BPs still elevated, allowing for permissive hypertension today. PRN hydralazine available for extremely high BP. Continue to monitor blood pressure and adjust treatment as needed. (6) Meningioma: Code(s): D32.9 - Benign neoplasm of meninges, unspecified Status: Suspected Assessment and Plan: 7 mm mass noted on MRI brain most consistent with a meningioma, no edema or midline shift. Unsure of chronicity; not felt to be contributing to her acute symptoms. Recommend outpatient monitoring with imaging in the future. (7) DVT prophylaxis: Code(s): Z29.9 - Encounter for prophylactic measures, unspecified Status: Acute Assessment and Plan: SCDs Subjective Date/time seen: 12/05/19 1145 Interval history: Ms. Domínguez is admitted for acute CVA and severe anemia. She feels well today and offers no complaints. She
[2019-12-05] MEDS: SODIUM CHLORIDE 0.9% IV 1,000 ML 80 ML IV CONT (14:46)
[2019-12-05 15:01] LABS: Hematocrit 26.6 % (37.0-47.0); Hemoglobin 8.1 g/dL (12.0-15.0)
[2019-12-05 15:14] LABS: Lactic Acid Reflex 0.8 mmol/L (0.7-2.1)
--- NOTE | 2019-12-05 16:15 | PC.NURSE ---
Lost IV access. Attempted to restart IV with no success. Mike the nursing slab lifting supervisor will attempt to gain IV access with US. Notified GUSTABO Villanueva that patient's blood pressure was 196/72, but was unable to give PRN hydralazine due to no IV access. She is aware and will continue to monitor until an IV is placed.
--- NOTE | 2019-12-05 18:30 | PC.NURSE ---
1500 dose of piperacillin given late due to no IV access.
[2019-12-05] MEDS: hydrALAZINE HCL 20 MG/ML VIAL 10 MG IV PUSH (18:35)
[2019-12-06] VITALS (9 sets, daily range): BP systolic 162–175; BP diastolic 50–82; PULSE 78–106; RESP 16–116; TEMP 36.6–36.9; O2SAT 96–98; BMI 23.8
--- NOTE | 2019-12-06 | ECHO_ITS ---
Patient Info Name: Darline Domínguez Age: 74 years : 1945 Gender: Female Ht: 61 in Wt: 126 lbs BSA: 1.58 m2 HR: 87 bpm BP: 168 / 50 mmHg Heart Rhythm: Sinus Rhythm Technical Quality: Fair Exam Date: 12/06/2019 8:43 AM Exam Location: [facility] Patient Status: Inpatient Admit Date: 12/04/2019 Staff Ordering Physician: Kay Horne PA-C Mid Level Provider: Ji Krishnamurthy RDCS, RT Attending Provider: Ansley Chang DO Exam Type: CA echo doppler color flow Study Info Indications - cva Complete two-dimensional, color flow and Doppler transthoracic echocardiogram is performed. Summary 1. Left ventricular chamber dimension is normal. 2. Left ventricular systolic function is normal, estimated at 65-70%. 3. There is mildly increased left ventricular wall thickness. 4. Left ventricular septal wall motion is normal. 5. The left ventricular diastolic function is grade I diastolic dysfunction. 6. Left atrial chamber dimension is moderately enlarged. 7. Aneurysmal atrial septum with probable PFO noted by color flow. Rogerio to be considered if clinically relevant to confirm. 8. There is mild mitral valve stenosis. 9. There is mild mitral valve regurgitation. 10. The mitral valve annulus is severely calcified. 11. There is mild tricuspid valve regurgitation. 12. Severe pulmonary hypertension, estimated pulmonary arterial systolic pressure is 60 mmHg. 13. There is mild pulmonic regurgitation. Left Ventricle Left ventricular chamber dimension is normal. Left ventricular systolic function is normal, estimated at 65-70%. There is mildly increased left ventricular wall thickness. Left ventricular septal wall motion is normal. The left ventricular diastolic function is grade I diastolic dysfunction. Right Ventricle Right ventricular chamber dimension is normal. Right ventricular systolic function is normal. Left Atria Left atrial chamber dimension is moderately enlarged. Right Atria Right atrial chamber dimension is normal. Atrial Septum Bowing of the interatrial septum to the right by color flow imaging. Aneurysmal atrial septum with probable PFO noted by color flow. Rogerio to be considered if clinically relevant to confirm. Aortic Valve The aortic valve is trileaflet. There is moderate aortic valve sclerosis. There is no aortic valve stenosis. There is trace aortic valve regurgitation. Pulmonic Valve The pulmonic valve is normal. There is no pulmonic valve stenosis. There is mild pulmonic regurgitation. Mitral Valve The mitral valve has thickened leaflets. There is mild mitral valve stenosis. There is mild mitral valve regurgitation. The mitral valve annulus is severely calcified. Tricuspid Valve The tricuspid valve leaflets are normal. There is no significant tricuspid valve stenosis. There is mild tricuspid valve regurgitation. Severe pulmonary hypertension, estimated pulmonary arterial systolic pressure is 60 mmHg. Pericardium/Pleural The pericardium appears normal. There is no pericardial effusion. Inferior Vena Cava Dilated inferior vena cava with <50% collapse upon inspiration consistent with elevated right atrial pressure, 15 mmHg. Aorta The aortic root size at the sinus of Valsalva is normal. The prox ascending aorta size is normal. Left Ventricular Outflow Tract Name Value Normal
[2019-12-06 05:50] LABS: Alanine Aminotransferase 11 U/L (4-35); Albumin Level 2.7 g/dL (3.5-5.1); Alkaline Phosphatase 151 U/L (38-126); Aspartate Amino Transferase 23 U/L (14-36); Bilirubin,Total 0.4 mg/dL (0.2-1.3); Blood Urea Nitrogen 7 mg/dL (7-17); Calcium 8.1 mg/dL (8.4-10.2); Carbon Dioxide 26 mmol/L (22-30); Chloride 100 mmol/L (98-107); Estimated CRCL calculation 51 ml/min; Estimated Glomerular Filt Rate > 60; Glucose 86 mg/dL (65-105); Lipase 21 U/L (23-300); Magnesium 1.9 mg/dL (1.6-2.3); Phosphorus 3.9 mg/dL (2.5-4.5); Potassium 3.2 mmol/L (3.4-5.0); Sodium 133 mmol/L (137-145)
[2019-12-06] MEDS: SODIUM CHLORIDE 0.9% IV 1,000 ML 80 ML IV CONT ×2 (06:03→19:53)
[2019-12-06 06:16] LABS: Carcinoembryonic Antigen 0.7 ng/mL (0.0-3.0)
[2019-12-06 08:16] LABS: Basophils Percent Auto 0.3 % (0.2-1.2); Eosinophils Absolute Auto 0.2 K/mm3 (0-0.3); Eosinophils Percent Auto 1.6 % (0-4.4); Hematocrit 25.6 % (37.0-47.0); Hemoglobin 7.9 g/dL (12.0-15.0); Immature Granulocyte Absolute 0.21 K/mm3 (0.00-0.031); Immature Granulocyte Percent A 1.8 % (0-0.5); Lymphocytes Absolute Auto 1.36 K/mm3 (0.9-3.2); Lymphocytes Percent Auto 11.8 % (18.3-44.2); Mean Corpuscular HGB Conc 30.9 g/dl (32-36); Mean Corpuscular Hemoglobin 24.2 pg (26-34); Mean Corpuscular Volume 78.3 fl (80-100); Mean Platelet Volume 8.6 fl (7.4-10.4); Monocytes Absolute Auto 0.8 K/mm3 (0.1-0.6); Monocytes Percent Auto 7.2 % (2.6-8.5); Neutrophils Absolute Auto 8.9 K/mm3 (1.3-6.7); Neutrophils Percent Auto 77.3 % (45.5-73.1); Platelet Count Result 595 k/mm3 (150-375); Red Blood Count 3.27 M/mm3 (4.2-5.4); Red Cell Distribution Width 16.8 % (11.5-14.5); White Blood Count 11.5 K/mm3 (4.5-10.0)
--- NOTE | 2019-12-06 09:48 | WPDNEUROPN ---
Progress Note: A&P Assessment and Plan (1) Abdominal abscess: Status: Acute (2) Meningioma: Code(s): D32.9 - Benign neoplasm of meninges, unspecified Status: Suspected (3) DVT prophylaxis: Code(s): Z29.9 - Encounter for prophylactic measures, unspecified Status: Acute (4) Severe anemia: Code(s): D64.9 - Anemia, unspecified Status: Acute (5) Acute CVA (cerebrovascular accident): Code(s): I63.9 - Cerebral infarction, unspecified Status: Acute (6) Elevated blood-pressure reading without diagnosis of hypertension: Code(s): R03.0 - Elevated blood-pressure reading, without diagnosis of hypertension Status: Acute (7) Acute hypokalemia: Code(s): E87.6 - Hypokalemia Status: Acute Additional Plan stable awaiting GI consult Review of Systems Review of Systems: All systems reviewed & are unremarkable except as noted in HPI and below Exam Const: General: cooperative, comfortable and no acute distress Nutritional Appearance: average body habitus Limitations: no limitations HENMT: Head: normal to inspection Ears: hearing grossly normal bilaterally General nose exam: No nasal discharge present Eyes: General: appearance normal, both eyes and all related structures Neck: Neck: full ROM Resp: Effort & Inspection: normal respiratory effort and able to speak in complete sentences Cardio: Rate: regular rate Rhythm: regular rhythm Skin: General skin exam: no rashes or lesions noted Neuro: General: oriented to person, oriented to place and moves all extremities Cranial nerves: Yes CN's II-XII intact bilaterally, Yes Equal, round and reactive pupils present, Yes Nystagmus not present, Yes Normal facial strength present, Yes Midline tongue present and Yes Ability to bilaterally rotate head present Speech: normal speech Sensory Exam: normal sensation Deep tendon reflexes (DTR's): Right triceps reflex intensity grade: 1+, Left triceps reflex intensity grade: 1+, Rt Biceps (C5, C6): 1+, Left biceps reflex intensity grade: 1+, Right brachioradialis reflex intensity grade: 1+, Left brachioradialis reflex intensity grade: 1+, Right patellar reflex intensity grade: 1+, Left patellar reflex intensity grade: 1+, Right ankle reflex intensity grade: 1+ and Left ankle reflex intensity grade: 1+ Plantar Reflex Responses: downgoing: bilateral Psych: Mental Status: mental status grossly normal Speech and movement: Normal speech and movement present Affect: Indifferent affect present Attitude: cooperative Thought process: Normal thought process present Thought content: Yes Normal thought content present Insight: Fair insight present (Psych) Judgement: Fair judgement present (Psych) Objective Data Vital Signs Vital Signs: Vital Signs - 24 hr 12/05/19 12:00 12/05/19 14:00 12/05/19 16:00 Temperature 36.8 C Pulse Rate 83 90 93 Respiratory Rate 18 Blood Pressure 196/72 H Pulse Oximetry 98 12/05/19 18:28 12/05/19 20:00 12/06/19 00:00 Temperature 36.4 C L Pulse Rate 85 106 H Respiratory Rate 20 Blood Pressure 196/82 H 170/80 H 173/58 H Pulse Oximetry 97 12/06/19 04:00 12/06/19 09:32 Temperature 36.6 C 36.6 C Pulse Rate 87 79 Respiratory Rate 18 116 H Blood Pressure 168/50 H 163/82 H Pulse Oximetry 97 98 Intake/Output Intake/Output: Intake & Output 12/03/19 12/04/19 12/05/19 12/06/19 23:59 23:59 23:59 23:59 Intake Total 3863 555 1100 Output Total 801 1700 600 Balance 3062 -1145 500 Meds/Results Medications: Active Medications Generic Name Dose Route Start Last Admin Trade Name Freq PRN Reason Stop Dose Admin Aspirin 81 mg 12/04/19 10:55 12/05/19 08:00 Aspirin Ec PO 81 mg QAM BABAR Administration Atorvastatin Calcium 20 mg 12/05/19 09:00 12/05/19 08:00 Lipitor PO 20 mg DAILY BABAR Administration Hydralazine HCl 10 mg 12/04/19 07:29 12/05/19 18:35 Apresoline Hcl Inj IV PUSH 10 mg
--- NOTE | 2019-12-06 13:06 | PM.CNGS ---
Assessment and Plan Assessment and plan (1) Pericolonic abscess: Code(s): K63.0 - Abscess of intestine Status: Acute Assessment and Plan: CT scan reviewed and discussed with the patient in detail. There is evidence of a right pericolic gutter abscess contiguous with an irregular segment of wall thickening of the ascending colon and cecum. Dr. Brandon reviewed the CT scan with the Radiologist. This does not appear to be appendicitis, but could be a right-sided diverticulitis. Although, the colonic wall thickening with microperforation and abscess also could be related to a malignancy, especially in the setting of her iron-deficiency anemia and weight loss. CEA was normal. She has no history of a colonoscopy in the past. GI was consulted and appreciate their recommendations. The intra-abdominal abscess is amenable to drainage, therefore we will proceed with CT-guided percutaneous drainage by the Radiologist to treat the abscess. Cultures will be sent. Continue IV antibiotics and IV fluids. After the percutaneous drain is placed today, it is okay from our standpoint to start the patient on a clear liquid diet if she continues to have no abdominal pain or nausea. After giving this a few days with the IV antibiotics and drainage, we will consider getting a contrast enema to further assess the area of colonic wall thickening in the cecum and ascending colon. Will continue to monitor with serial abdominal exams and labs. Thank you for allowing me to see the patient in consultation and we will continue to follow along with you. (2) Abnormal CT scan, colon: Code(s): R93.3 - Abnormal findings on diagnostic imaging of other parts of digestive tract Status: Acute Assessment and Plan: See plan above. (3) Acute CVA (cerebrovascular accident): Code(s): I63.9 - Cerebral infarction, unspecified Status: Acute Assessment and Plan: Currently on aspirin and statin therapy. Carotid doppler <50% stenosis bilaterally. Echo pending on my assessment. Neurology consulted and following. (4) Iron deficiency anemia: Qualifiers: Iron deficiency anemia type: unspecified iron deficiency Qualified Code(s): D50.9 - Iron deficiency anemia, unspecified Code(s): D50.9 - Iron deficiency anemia, unspecified Status: Acute Assessment and Plan: Transfused with 1 unit PRBCs. Hgb 7.9 today. Trending labs. (5) Elevated blood-pressure reading without diagnosis of hypertension: Code(s): R03.0 - Elevated blood-pressure reading, without diagnosis of hypertension Status: Acute Assessment and Plan: Management per Hospitalist. (6) Acute hypokalemia: Code(s): E87.6 - Hypokalemia Status: Acute Assessment and Plan: K 3.2 today and was replaced. Continue to monitor labs. (7) Meningioma: Code(s): D32.9 - Benign neoplasm of meninges, unspecified Status: Suspected Additional Plan Discussed the patient's case and formulated the plan of care with Dr. Brandon. History of Present Illness Consult details Consult date: 12/06/19 Reason for consult: other (Ascending colonic wall thickening found on CT with an intra-abdominal abscess contiguous to this) Requesting physician: Kay Horne PA-C Narrative: This is a 74-year-old female who presented to the emergency department for evaluation of right-sided facial droop and slurred speech. The patient has no previous known medical history and takes no home medications. She reportedly has not seen a physician in over 20 years. The patient apparently was noted to have slurred speech and right-sided facial droop by a family member, and was brought in to the emergency department for evaluation on 12/04/19. The patient reports noting she had some slurred speech that day and some right hand weakness, but otherwise no other symptoms. CT scan of the brain showed no acute intracranial abnormality, age related findings, and a hype
[2019-12-06] MEDS: IRON SUCROSE COMPLEX 100 MG in SODIUM CHLORIDE 0.9% IV 50 ML 200 MG IVPB (13:22)
--- NOTE | 2019-12-06 13:23 | P.PNIM_ITS ---
Progress Note: A&P Assessment and Plan (1) Abdominal abscess: Status: Acute Assessment and Plan: * CT abdomen/pelvis demonstrates wall thickening of ascending colon and cecum and a 4.8 x 4.7 cm abscess in the right pericolic gutter near this irregular s egment. May be related to inflammation from colitis/diverticulitis vs. ?malignancy. * Patient has episodes of nausea, vomiting, diarrhea that last 3 or 4 days and occur every 5 to 7 weeks over the last 6 months for which she has received no treatment or previous workup. Her granddaughter notes that she had these symptoms last weekend along with a fever. * Given her iron deficiency anemia and lack of healthcare follow-up, concerning for GI malignancy. She has never had a colonoscopy and reluctant to have one. * Discussed with Dr Brandon and Dr Mckeon - appreciate further recommendations * Blood cultures obtained, NPO for perc drain of abscess today, continue IV zosyn. (2) Acute CVA (cerebrovascular accident): Code(s): I63.9 - Cerebral infarction, unspecified Status: Acute Assessment and Plan: * Patient presented with slurred speech and right-sided facial droop. Speech is improved, facial droop persists today. * MRI brain shows small acute infarct in the left frontal lobe. * No arrhythmia noted on telemetry. Carotid ultrasound normal. * Start ASA 81 mg daily. Lipid panel within normal limits. Started atorvastatin for stroke risk reduction. * PT/OT evaluations appreciated. Neurology consulted - appreciate input. * Echocardiogram reviewed, detailed below. Aneurysmal atrial septum with prob able PFO, normal systolic function EF 65-70%, severe pulmonary hypertension. She can follow up with cardiology outpatient if agreeable. (I am told bubble studies aren't being performed currently due to reduced staffing with COVID pandemic). (3) Severe anemia: Code(s): D64.9 - Anemia, unspecified Status: Acute Assessment and Plan: * Patient presents with Hgb 6.6 on arrival. Received 1 unit packed RBC 12/03 and IV iron qAM - H&H low but stable. * Recheck CBC in AM. * Iron is low, TIBC low-normal, consistent with iron deficiency anemia. No evidence of acute bleeding. Unsure of chronicity as patient has not seen a doctor in many years prior to this week. * Continue IV iron. Consider iron supplementation at discharge. * GI consulted - appreciate recommendations. Discussed with Dr Mckeon concern for GI malignancy. Likely colonoscopy after resolution/treatment of abscess. (4) Acute hypokalemia: Code(s): E87.6 - Hypokalemia Status: Acute Assessment and Plan: * Stable at 3.2 today and replaced. Mg 1.9. Recheck in AM. (5) Elevated blood-pressure reading without diagnosis of hypertension: Code(s): R03.0 - Elevated blood-pressure reading, without diagnosis of hypertension Status: Acute Assessment and Plan: * BPs elevated. Allowed for permissive HTN in the setting of acute CVA x 72 hrs. BPs still elevated, start Norvasc. PRN hydralazine available. * Continue to monitor blood pressure and adjust treatment as needed. (6) Meningioma: Code(s): D32.9 - Benign neoplasm of meninges, unspecified Status: Suspected Assessment and Plan: * 7 mm mass noted on MRI brain most consistent with a meningioma, no edema or midline shift. * Unsure of chronicity; not felt to be contributing to her acute symptoms. Recommend outpatient monitoring with imaging in the
--- NOTE | 2019-12-06 13:23 | PM.IMPN ---
Progress Note: A&P Assessment and Plan (1) Abdominal abscess: Status: Acute Assessment and Plan: CT abdomen/pelvis demonstrates wall thickening of ascending colon and cecum and a 4.8 x 4.7 cm abscess in the right pericolic gutter near this irregular segment. May be related to inflammation from colitis/diverticulitis vs. ?malignancy. Patient has episodes of nausea, vomiting, diarrhea that last 3 or 4 days and occur every 5 to 7 weeks over the last 6 months for which she has received no treatment or previous workup. Her granddaughter notes that she had these symptoms last weekend along with a fever. Given her iron deficiency anemia and lack of healthcare follow-up, concerning for GI malignancy. She has never had a colonoscopy and reluctant to have one. Discussed with Dr Brandon and Dr Mckeon - appreciate further recommendations Blood cultures obtained, NPO for perc drain of abscess today, continue IV zosyn. (2) Acute CVA (cerebrovascular accident): Code(s): I63.9 - Cerebral infarction, unspecified Status: Acute Assessment and Plan: Patient presented with slurred speech and right-sided facial droop. Speech is improved, facial droop persists today. MRI brain shows small acute infarct in the left frontal lobe. No arrhythmia noted on telemetry. Carotid ultrasound normal. Start ASA 81 mg daily. Lipid panel within normal limits. Started atorvastatin for stroke risk reduction. PT/OT evaluations appreciated. Neurology consulted - appreciate input. Echocardiogram reviewed, detailed below. Aneurysmal atrial septum with probable PFO, normal systolic function EF 65-70%, severe pulmonary hypertension. She can follow up with cardiology outpatient if agreeable. (I am told bubble studies aren't being performed currently due to reduced staffing with COVID pandemic). (3) Severe anemia: Code(s): D64.9 - Anemia, unspecified Status: Acute Assessment and Plan: Patient presents with Hgb 6.6 on arrival. Received 1 unit packed RBC 12/03 and IV iron qAM - H&H low but stable. Recheck CBC in AM. Iron is low, TIBC low-normal, consistent with iron deficiency anemia. No evidence of acute bleeding. Unsure of chronicity as patient has not seen a doctor in many years prior to this week. Continue IV iron. Consider iron supplementation at discharge. GI consulted - appreciate recommendations. Discussed with Dr Mckeon concern for GI malignancy. Likely colonoscopy after resolution/treatment of abscess. (4) Acute hypokalemia: Code(s): E87.6 - Hypokalemia Status: Acute Assessment and Plan: Stable at 3.2 today and replaced. Mg 1.9. Recheck in AM. (5) Elevated blood-pressure reading without diagnosis of hypertension: Code(s): R03.0 - Elevated blood-pressure reading, without diagnosis of hypertension Status: Acute Assessment and Plan: BPs elevated. Allowed for permissive HTN in the setting of acute CVA x 72 hrs. BPs still elevated, start Norvasc. PRN hydralazine available. Continue to monitor blood pressure and adjust treatment as needed. (6) Meningioma: Code(s): D32.9 - Benign neoplasm of meninges, unspecified Status: Suspected Assessment and Plan: 7 mm mass noted on MRI brain most consistent with a meningioma, no edema or midline shift. Unsure of chronicity; not felt to be contributing to her acute symptoms. Recommend outpatient monitoring with imaging in the future. (7) DVT prophylaxis: Code(s): Z29.9 - Encounter for prophylactic measures, unspecified Status: Acute Assessment and Plan: SCDs Subjective Date/time seen: 12/06/19 1245 Interval history: Ms. Domínguez is admitted for acute CVA, intra-abdominal abscess and anemia. She feels well today and offers n
--- NOTE | 2019-12-06 13:24 | WPDGICN ---
Assessment and Plan Assessment and plan (1) Pericolonic abscess: Code(s): K63.0 - Abscess of intestine Status: Acute Assessment and Plan: discussed case with surgery and recommendation is to proceed with percutaneous drain by IR, in setting of possible microperforation we will need to wait before proceeding with colonoscopy maybe 3-4 weeks (differential include malignancy in setting of abnormal CT scan in right colon with iron deficiency anemia, also diverticulitis/colitis) she is on iv antibiotics (2) Abnormal CT scan, colon: Code(s): R93.3 - Abnormal findings on diagnostic imaging of other parts of digestive tract Status: Acute Assessment and Plan: surgery on board, she needs a colonoscopy but we need to wait until abscess treated/drained and monitor resolution of abscess. concern about malignancy (3) Iron deficiency anemia: Qualifiers: Iron deficiency anemia type: unspecified iron deficiency Qualified Code(s): D50.9 - Iron deficiency anemia, unspecified Code(s): D50.9 - Iron deficiency anemia, unspecified Status: Acute Assessment and Plan: keep hb above 7, probably chronic blood loss (4) Acute CVA (cerebrovascular accident): Code(s): I63.9 - Cerebral infarction, unspecified Status: Acute Assessment and Plan: neurology on board, on medical treatment with cardiac work up in progress GI Consult Note Consult date/time: 12/06/19 13:24 Reason for consult: right pericolic abscess HPI: Darline Domínguez is a 74 year old female who has not seen a doctor for several years admitted to the hospital with new onset of slurred speech and right facial droop, MRI brain showed small acute infarct in the left frontal lobe and evaluated by neurology. Also was noted that she had iron deficiency anemia with hb 6.6, never had a colonoscopy. She also complaining of mild pain in rlq. CT a/p showed wall thickening of the ascending colon and cecum which could reflect malignancy or inflammation with 4.8x4.7 cm right pericolic gutter abscess contiguous with the irregular segment of colon. She never had a colonoscopy. Denies overt GIB Review of Systems Constitutional: Constitutional: Denies chills Eyes: Eyes: Denies blurry vision ENT: Denies nasal congestion Cardiovascular: Cardiovascular: Denies chest pain Respiratory: Respiratory: Denies cough Gastrointestinal: Gastrointestinal: Denies diarrhea Musculoskeletal: Musculoskeletal: Denies myalgias Integumentary/Breasts: Skin/Breast: Denies pruritus Neurologic: Comments: facial drop Psychiatric: Psychiatric: Denies anxiety PMFSH Past Medical History Medical History (Updated 12/06/19 @ 13:31 by Simone Conrad MD) Abnormal CT scan, colon Acute CVA (cerebrovascular accident) Iron deficiency anemia Meningioma No significant past medical history Has not seen a doctor in 20 years prior to establishing with Dr. Vogt this week. Pericolonic abscess Severe anemia Surgical History Surgical History History of tubal ligation 1972 Family History Family History (Updated 12/04/19 @ 20:21 by Kay Horne PA-C) Son Cancer Daughter Cerebrovascular accident Social History Social History (Updated 12/04/19 @ 12:08 by Kay Horne PA-C) Social History: Ms. Domínguez lives at home by herself in [place]. She denies alcohol or substance use. Never smoker. She tells me she walks independently without a cane or walker normally. She has a granddaughter, Salud, who checks in on her. She designates Salud to be her surrogate decision maker. We discussed code status and Ms. Domínguez wishes to make her code status Do Not Resuscitate. Smoking status: Never smoker Alcohol intake: never Substance use: never Substance use type: does not use Living arrangements: alone Occupation/Education: retired Gender identity (if verbal
--- NOTE | 2019-12-06 14:12 | PCDIET ---
Nutrition Assessment Complete: Inadequate oral intake R/T pericolonic abscess as evidence by NPO order Total intake will meet estimated nutrition needs Goal: New Goal Pt current nutrition is NPO. Nutrition recommendation: Agree Last recorded weight is 57.2 kg. Bowel Motility: Labs Reviewed:Albumin 2.7, Protein 5.0 Additional Notes: -Recommend ADAT when possible. If plans to remain NPO longer than three days recommend starting PPN 4.25/5 + lipids now at 40ml/hr day one and then increasing to 90ml/hr day two if tolerated and electrolytes remain stable to provide 1234 kcals and 92g protein. Nutrition intake, diet, labs,wt every three days
--- NOTE | 2019-12-06 15:54 | PM.PNGS ---
Progress Note: A&P Assessment and Plan (1) Abnormal CT scan, colon: Code(s): R93.3 - Abnormal findings on diagnostic imaging of other parts of digestive tract Status: Acute Assessment and Plan: I have reviewed the CT and discussed the findings with the patient. She was sent down for percutaneous drain of the abscess today. Will manage the drain and continue broad spectrum antibiotics. May eventually get a Gastrografin Enema to assess for any significant mass or other findings. Would be ideal to get a colonoscopy at some point but this would be high risk in the face of possible perforation and abscess. (2) Pericolonic abscess: Code(s): K63.0 - Abscess of intestine Status: Acute (3) Acute CVA (cerebrovascular accident): Code(s): I63.9 - Cerebral infarction, unspecified Status: Acute (4) Iron deficiency anemia: Qualifiers: Iron deficiency anemia type: unspecified iron deficiency Qualified Code(s): D50.9 - Iron deficiency anemia, unspecified Code(s): D50.9 - Iron deficiency anemia, unspecified Status: Acute Subjective Subjective Date/Time Seen: 12/06/19 15:54 Patient seen and examined independently. This is a 74 yo woman who presented with an acute CVA. She was having intermittent abdominal pain with nausea and vomiting, but she is a poor historian. A CT abd/pelvis was obtained yesterday and this showed an right paracolic abscess and possible wall thickening of the ascending colon. She is also anemic and has not been eating much for several months. She has lost about 50 lbs in the past 6 months. She does not routinely see a doctor and has never had a colonoscopy. Objective Data Vital Signs Vital Signs: Vital Signs - 24 hr 12/05/19 16:00 12/05/19 18:28 12/05/19 20:00 Temperature 36.4 C L Pulse Rate 93 85 Respiratory Rate 20 Blood Pressure 196/82 H 170/80 H Pulse Oximetry 97 12/06/19 00:00 12/06/19 04:00 12/06/19 08:00 Temperature 36.6 C Pulse Rate 106 H 87 78 Respiratory Rate 18 Blood Pressure 173/58 H 168/50 H Pulse Oximetry 97 12/06/19 09:32 12/06/19 12:00 12/06/19 13:37 Temperature 36.6 C 36.9 C Pulse Rate 79 82 88 Respiratory Rate 116 H 16 Blood Pressure 163/82 H 175/54 H Pulse Oximetry 98 98 Intake/Output Intake/Output: Intake & Output 12/03/19 12/04/19 12/05/19 12/06/19 23:59 23:59 23:59 23:59 Intake Total 3863 555 1805 Output Total 801 1700 750 Balance 3062 -1145 1055 Meds/Results Medications: Active Medications Generic Name Dose Route Start Last Admin Trade Name Freq PRN Reason Stop Dose Admin Amlodipine Besylate 5 mg 12/07/19 09:00 Norvasc PO QAM BABAR Aspirin 81 mg 12/04/19 10:55 12/05/19 08:00 Aspirin Ec PO 81 mg QAM BABAR Administration Atorvastatin Calcium 20 mg 12/05/19 09:00 12/05/19 08:00 Lipitor PO 20 mg DAILY BABAR Administration Hydralazine HCl 10 mg 12/04/19 07:29 12/05/19 18:35 Apresoline Hcl Inj IV PUSH 10 mg Q8H PRN Administration Blood Pressure - High Iron Sucrose 100 mg/ Sodium 55 mls @ 220 mls/hr 12/04/19 12:30 12/06/19 13:45 Chloride IVPB Infused Q24H BABAR Infusion Sodium Chloride 1,000 mls @ 80 mls/hr 12/05/19 14:20 12/06/19 06:03 Normal Saline Iv IV CONT 80 mls/hr .[id number] BABAR Administration Piperacillin/Tazobactam/Dextrose 3.375 gm in 50 mls @ 100 mls/hr 12/06/19 00:00 12/06/19 12:45 Zosyn 3.375 Gm/D5w 50ml Pm IVPB Infused Q6HR BABAR Infusion Radiology Results: ITS Impressions Head CT 12/04/19 08:16 IMPRESSION: 1. No acute intracranial abnormality. 2. Age related findings. 3. Hyperdense left parafalcine mass most consistent with a meningioma. Brain MRI 12/04/19 10:24 IMPRESSION: 1. Small acute infarct in the left frontal lobe. Carotid Doppler Study 12/04/19 17:02 IMPRESSION: 1. Less than 50% stenosis in the right internal carotid artery. 2. Less than 50% s
[2019-12-06] MEDS: POTASSIUM CHLORIDE 20 MEQ PACKET (FOR LIQUID) 40 MEQ PO (15:58)
[2019-12-06] MEDS: hydrALAZINE HCL 20 MG/ML VIAL 10 MG IV PUSH (19:55)
[2019-12-07] VITALS (10 sets, daily range): BP systolic 160–179; BP diastolic 51–65; PULSE 75–88; RESP 14–18; TEMP 36–37; O2SAT 96–100
[2019-12-07 05:05] LABS: Hematocrit 24.7 % (37.0-47.0); Hemoglobin 7.6 g/dL (12.0-15.0); Mean Corpuscular HGB Conc 30.8 g/dl (32-36); Mean Corpuscular Hemoglobin 24.2 pg (26-34); Mean Corpuscular Volume 78.7 fl (80-100); Mean Platelet Volume 8.2 fl (7.4-10.4); Platelet Count Result 458 k/mm3 (150-375); Red Blood Count 3.14 M/mm3 (4.2-5.4); Red Cell Distribution Width 16.6 % (11.5-14.5)
[2019-12-07 05:21] LABS: Blood Urea Nitrogen 6 mg/dL (7-17); Calcium 7.8 mg/dL (8.4-10.2); Carbon Dioxide 27 mmol/L (22-30); Chloride 102 mmol/L (98-107); Estimated CRCL calculation 51 ml/min; Estimated Glomerular Filt Rate > 60; Glucose 85 mg/dL (65-105); Potassium 3.1 mmol/L (3.4-5.0); Sodium 134 mmol/L (137-145)
[2019-12-07] MEDS: AMLODIPINE BESYLATE 5 MG TABLET PO (08:21)
--- NOTE | 2019-12-07 08:23 | WPDGIPROGNO ---
Progress Note: A&P Assessment and Plan (1) Pericolonic abscess: Code(s): K63.0 - Abscess of intestine Status: Acute Assessment and Plan: percutaneous drain in place, awaiting for culture on iv antibiotics and surgery on board she needs colonoscopy but can not do it now in setting of abscess and possible perforation, probably in few more weeks as outpatient to rule out malignancy (probably we will need to repeat another CT scan before proceeding with colonoscopy but consider gastrografin enema), management by surgical team (2) Abnormal CT scan, colon: Code(s): R93.3 - Abnormal findings on diagnostic imaging of other parts of digestive tract Status: Acute Assessment and Plan: differential diagnosis is malignancy (3) Iron deficiency anemia: Qualifiers: Iron deficiency anemia type: unspecified iron deficiency Qualified Code(s): D50.9 - Iron deficiency anemia, unspecified Code(s): D50.9 - Iron deficiency anemia, unspecified Status: Acute Assessment and Plan: monitor hb, chronic blood loss (4) Acute CVA (cerebrovascular accident): Code(s): I63.9 - Cerebral infarction, unspecified Status: Acute Assessment and Plan: on treatment now Subjective Date/time seen: 12/07/19 08:23 Interval history: IR yesterday placed drain, she is having breakfast now. Review of Systems Review of Systems: All systems reviewed & are unremarkable except as noted in HPI and below Exam Const: General: comfortable and no acute distress HENMT: General nose exam: Normal nares present Eyes: General: appearance normal, both eyes and all related structures Neck: Neck: no JVD Resp: Auscultation: clear to auscultation bilaterally Cardio: Rate: regular rate Rhythm: regular rhythm GI: Inspection: non-distended GI Palp: Yes Soft to palpation and Yes Tenderness to palpation present (GI) (mild ttp in rlq, no rebound. Drain in place) Auscultation: normal bowel sounds Skin: General skin exam: normal color Neuro: General: gait normal Speech: normal speech Extrem: General: normal to inspection Psych: Mental Status: mental status grossly normal Objective Data Vital Signs Vital Signs: Vital Signs - 24 hr 12/06/19 09:32 12/06/19 12:00 12/06/19 13:37 Temperature 97.8 F 98.5 F Pulse Rate 79 82 88 Respiratory Rate 116 H 16 Blood Pressure 163/82 H 175/54 H Pulse Oximetry 98 98 12/06/19 16:00 12/06/19 20:00 12/06/19 22:00 Temperature 97.8 F Pulse Rate 92 88 104 H Respiratory Rate 20 Blood Pressure 162/70 H Pulse Oximetry 96 12/07/19 00:00 12/07/19 04:00 12/07/19 05:44 Temperature 97.7 F Pulse Rate 79 82 78 Respiratory Rate 18 Blood Pressure 162/65 H Pulse Oximetry 96 Intake/Output Intake/Output: Intake & Output 12/04/19 12/05/19 12/06/19 12/07/19 23:59 23:59 23:59 23:59 Intake Total 3863 555 3435 290 Output Total 801 1700 780 830 Balance 3172 -7446 9201 -322 Meds/Results Medications: Active Medications Generic Name Dose Route Start Last Admin Trade Name Freq PRN Reason Stop Dose Admin Amlodipine Besylate 5 mg 12/07/19 09:00 12/07/19 08:21 Norvasc PO 5 mg QAM BABAR Administration Aspirin 81 mg 12/04/19 10:55 12/05/19 08:00 Aspirin Ec PO 81 mg QAM BABAR Administration Atorvastatin Calcium 20 mg 12/05/19 09:00 12/05/19 08:00 Lipitor PO 20 mg DAILY BABAR Administration Hydralazine HCl 10 mg 12/04/19 07:29 12/06/19 19:55 Apresoline Hcl Inj IV PUSH 10 mg Q8H PRN Administration Blood Pressure - High Iron Sucrose 100 mg/ Sodium 55 mls @ 220 mls/hr 12/04/19 12:30 12/06/19 13:45 Chloride IVPB Infused Q24H BABAR Infusion Sodium Chloride 1,000 mls @ 80 mls/hr 12/05/19 14:20 12/06/19 19:53 Normal Saline Iv IV CONT 80 mls/hr .[id number] BABAR Administration Piperacillin/Tazobactam/Dextrose 3.375 gm in 50 mls @ 100 mls/hr 12/06/19 00:00 12/07/19 06
[2019-12-07] MEDS: SODIUM CHLORIDE 0.9% IV 1,000 ML 80 ML IV CONT ×2 (08:32→20:19)
[2019-12-07 09:09] LABS: IFOB Positive Control Positive; Immunochemical Fecal Occult Bl Positive (N)
--- NOTE | 2019-12-07 10:45 | WPDNEUROPN ---
Progress Note: A&P Assessment and Plan (1) Iron deficiency anemia: Qualifiers: Iron deficiency anemia type: unspecified iron deficiency Qualified Code(s): D50.9 - Iron deficiency anemia, unspecified Code(s): D50.9 - Iron deficiency anemia, unspecified Status: Acute (2) Pericolonic abscess: Code(s): K63.0 - Abscess of intestine Status: Acute (3) Abdominal abscess: Status: Acute (4) Meningioma: Code(s): D32.9 - Benign neoplasm of meninges, unspecified Status: Suspected (5) DVT prophylaxis: Code(s): Z29.9 - Encounter for prophylactic measures, unspecified Status: Acute (6) Severe anemia: Code(s): D64.9 - Anemia, unspecified Status: Acute (7) Acute CVA (cerebrovascular accident): Code(s): I63.9 - Cerebral infarction, unspecified Status: Acute (8) Elevated blood-pressure reading without diagnosis of hypertension: Code(s): R03.0 - Elevated blood-pressure reading, without diagnosis of hypertension Status: Acute (9) Acute hypokalemia: Code(s): E87.6 - Hypokalemia Status: Acute Additional Plan right pericolic abscess drained ?malignancy neuro stable Review of Systems Review of Systems: All systems reviewed & are unremarkable except as noted in HPI and below Exam Const: General: cooperative, comfortable and no acute distress Nutritional Appearance: average body habitus Orientation/consciousness: oriented to person, oriented to place and oriented to time Limitations: no limitations HENMT: Head: normal to inspection Eyes: General: appearance normal, both eyes and all related structures Neck: Neck: full ROM and no lymphadenopathy Resp: Effort & Inspection: normal respiratory effort and able to speak in complete sentences Auscultation: clear to auscultation bilaterally Cardio: Rate: regular rate Rhythm: regular rhythm GI: GI Palp: Yes abdominal tenderness and Yes Firmness to palpation present (GI) Auscultation: normal bowel sounds Skin: General skin exam: no rashes or lesions noted Neuro: General: patient oriented x3 and moves all extremities Cranial nerves: Yes CN's II-XII intact bilaterally, Yes Equal, round and reactive pupils present, Yes Nystagmus not present, Yes Normal facial strength present, Yes Midline tongue present and Yes Ability to bilaterally rotate head present Speech: normal speech Motor exam (neuro): 5/5 motor strength present throughout (4/5) Deep tendon reflexes (DTR's): Right triceps reflex intensity grade: 1+, Left triceps reflex intensity grade: 1+, Rt Biceps (C5, C6): 1+, Left biceps reflex intensity grade: 1+, Right brachioradialis reflex intensity grade: 1+, Left brachioradialis reflex intensity grade: 1+, Right patellar reflex intensity grade: 1+, Left patellar reflex intensity grade: 1+, Right ankle reflex intensity grade: 1+ and Left ankle reflex intensity grade: 1+ Plantar Reflex Responses: downgoing: bilateral Psych: Appearance: grossly normal Affect: Sad affect present Attitude: cooperative Thought process: Normal thought process present Thought content: Yes Normal thought content present Judgement: Fair judgement present (Psych) Objective Data Vital Signs Vital Signs: Vital Signs - 24 hr 12/06/19 12:00 12/06/19 13:37 12/06/19 16:00 Temperature 36.9 C Pulse Rate 82 88 92 Respiratory Rate 16 Blood Pressure 175/54 H Pulse Oximetry 98 12/06/19 20:00 12/06/19 22:00 12/07/19 00:00 Temperature 36.6 C Pulse Rate 88 104 H 79 Respiratory Rate 20 Blood Pressure 162/70 H Pulse Oximetry 96 12/07/19 04:00 12/07/19 05:44 Temperature 36.5 C Pulse Rate 82 78 Respiratory Rate 18 Blood Pressure 162/65 H Pulse Oximetry 96 Intake/Output Intake/Output: Intake & Output 12/04/19 12/05/19 12/06/19 12/07/19 23:59 23:59 23:59 23:59 Intake Total 3863 795 3435 1530 Output Total 801 1700 780 830 Balance 2722 -6441 1264 700 Meds/Result
[2019-12-07] MEDS: POTASSIUM CHLORIDE 20 MEQ TABLET 40 MEQ PO (10:46)
--- NOTE | 2019-12-07 11:10 | PM.IMPN ---
Progress Note: A&P Assessment and Plan (1) Abdominal abscess: Status: Acute Assessment and Plan: ----CT abdomen/pelvis demonstrates wall thickening of ascending colon and cecum and a 4.8 x 4.7 cm abscess in the right pericolic gutter near this irregular segment. May be related to inflammation from colitis/diverticulitis vs. ?malignancy. She has experienced intermittent nausea, vomiting, and diarrhea for the last several months. She has never had a colonoscopy before. This looks like it will be done outpatient. Drain was placed and the Gram stain shows mixed lynn which is suspected to be from the intestines. I will draw CEA to get a baseline with tomorrow's labs. Continue IV Zosyn at this time (2) Acute CVA (cerebrovascular accident): Code(s): I63.9 - Cerebral infarction, unspecified Status: Acute Assessment and Plan: -----Patient presented with slurred speech and right-sided facial droop. Speech is improved, facial droop persists today. MRI brain shows small acute infarct in the left frontal lobe. No arrhythmia noted on telemetry. Carotid ultrasound normal. She was not on any medications when this occurred so will continue aspirin 81 mg that was started here in the hospital as well as atorvastatin. She did well with PT but since she had slurred speech I will do a speech evaluation as well as she may benefit from speech therapy. Echocardiogram reviewed, detailed below. Aneurysmal atrial septum with probable PFO, normal systolic function EF 65-70%, severe pulmonary hypertension. She can follow up with cardiology outpatient if agreeable. (I am told bubble studies aren't being performed currently due to reduced staffing with COVID pandemic). Will obtain venous Dopplers due to the new stroke and PFO. (3) Severe anemia: Code(s): D64.9 - Anemia, unspecified Status: Acute Assessment and Plan: ----Patient presents with Hgb 6.6 on arrival. Received 1 unit packed RBC 12/03 and IV iron qAM - H&H low but stable. Iron will be given at discharge. GI plans to do a colonoscopy outpatient after this abscess is healed. (4) Acute hypokalemia: Code(s): E87.6 - Hypokalemia Status: Acute Assessment and Plan: -----3.1 today. Likely worsening with her clear liquid diet. Will supplement (5) Elevated blood-pressure reading without diagnosis of hypertension: Code(s): R03.0 - Elevated blood-pressure reading, without diagnosis of hypertension Status: Acute Assessment and Plan: -----blood pressure has been high but acceptable due to permissive hypertension. Now that we are a few days out, I will start [facility] and monitor her trends. (6) Meningioma: Code(s): D32.9 - Benign neoplasm of meninges, unspecified Status: Suspected Assessment and Plan: ------7 mm mass noted on MRI brain most consistent with a meningioma, no edema or midline shift. Unsure of chronicity; not felt to be contributing to her acute symptoms. Recommend outpatient monitoring with imaging in the future. (7) DVT prophylaxis: Code(s): Z29.9 - Encounter for prophylactic measures, unspecified Status: Acute Assessment and Plan: SCDs Time Spent With Patient Time with patient: 25 - 35 minutes Subjective Date/time seen: 12/07/19 11:10 Interval history: Patient is a 74-year-old female here for new stroke and abdominal abscess. Patient was seen today and says she is having a little pain in her right lower quadrant where the drain is but it is better than it was last night. She says she still having some mild slurred speech and some mild wool grader weakness on the right arm but says that is overall better as well. She is not like her clear liquid diet and thinks the fluids are running right through her. She is not having diarrhea but she is having multiple bowel movements a day. She denies dizziness, lightheadedness, fevers, chills, chest pain or milena
[2019-12-07] MEDS: IRON SUCROSE COMPLEX 100 MG in SODIUM CHLORIDE 0.9% IV 50 ML 220 MG IVPB (12:36)
--- NOTE | 2019-12-07 14:56 | PM.PNGS ---
Progress Note: A&P Assessment and Plan (1) Pericolonic abscess: Code(s): K63.0 - Abscess of intestine Status: Acute Assessment and Plan: Continue monitoring drain output and continue IV antibiotics Will get Hypaque enema tomorrow Advance diet tomorrow after Xray. (2) Iron deficiency anemia: Qualifiers: Iron deficiency anemia type: unspecified iron deficiency Qualified Code(s): D50.9 - Iron deficiency anemia, unspecified Code(s): D50.9 - Iron deficiency anemia, unspecified Status: Acute (3) Acute CVA (cerebrovascular accident): Code(s): I63.9 - Cerebral infarction, unspecified Status: Acute Subjective Subjective Date/Time Seen: 12/07/19 14:56 Pain at drain site last night. No abdominal pain today. Hungry. Exam GI: Inspection: other (Pigtail drain output appears more serosanguinous today) GI Palp: Yes Soft to palpation and No Tenderness to palpation present (GI) Percussion: Yes normal to percussion Auscultation: normal bowel sounds Objective Data Vital Signs Vital Signs: Vital Signs - 24 hr 12/06/19 16:00 12/06/19 20:00 12/06/19 22:00 Temperature 36.6 C Pulse Rate 92 88 104 H Respiratory Rate 20 Blood Pressure 162/70 H Pulse Oximetry 96 12/07/19 00:00 12/07/19 04:00 12/07/19 05:44 Temperature 36.5 C Pulse Rate 79 82 78 Respiratory Rate 18 Blood Pressure 162/65 H Pulse Oximetry 96 12/07/19 08:00 12/07/19 12:00 12/07/19 14:00 Temperature 37.0 C Pulse Rate 85 75 77 Respiratory Rate 14 Blood Pressure 176/56 H Pulse Oximetry 100 Intake/Output Intake/Output: Intake & Output 12/04/19 12/05/19 12/06/19 12/07/19 23:59 23:59 23:59 23:59 Intake Total 3863 053 3435 1875 Output Total 801 1700 780 830 Balance 3062 -1145 2655 1045 Meds/Results Medications: Active Medications Generic Name Dose Route Start Last Admin Trade Name Freq PRN Reason Stop Dose Admin Amlodipine Besylate 5 mg 12/07/19 09:00 12/07/19 08:21 Norvasc PO 5 mg QAM BABAR Administration Aspirin 81 mg 12/04/19 10:55 12/05/19 08:00 Aspirin Ec PO 81 mg QAM BABAR Administration Atorvastatin Calcium 20 mg 12/05/19 09:00 12/05/19 08:00 Lipitor PO 20 mg DAILY BABAR Administration Hydralazine HCl 10 mg 12/04/19 07:29 12/06/19 19:55 Apresoline Hcl Inj IV PUSH 10 mg Q8H PRN Administration Blood Pressure - High Iron Sucrose 100 mg/ Sodium 55 mls @ 220 mls/hr 12/04/19 12:30 12/07/19 12:51 Chloride IVPB Infused Q24H BABAR Infusion Sodium Chloride 1,000 mls @ 80 mls/hr 12/05/19 14:20 12/07/19 08:32 Normal Saline Iv IV CONT 80 mls/hr .[id number] BABAR Administration Piperacillin/Tazobactam/Dextrose 3.375 gm in 50 mls @ 100 mls/hr 12/06/19 00:00 12/07/19 11:40 Zosyn 3.375 Gm/D5w 50ml Pm IVPB Infused Q6HR BABAR Infusion Potassium Chloride 20 meq 12/07/19 17:00 Kcl Tablet PO 12/07/19 17:01 ONCE ONE Radiology Results: ITS Impressions Head CT 12/04/19 08:16 IMPRESSION: 1. No acute intracranial abnormality. 2. Age related findings. 3. Hyperdense left parafalcine mass most consistent with a meningioma. Brain MRI 12/04/19 10:24 IMPRESSION: 1. Small acute infarct in the left frontal lobe. Carotid Doppler Study 12/04/19 17:02 IMPRESSION: 1. Less than 50% stenosis in the right internal carotid artery. 2. Less than 50% stenosis in the left internal carotid artery. Abdomen/Pelvis CT 12/05/19 12:56 IMPRESSION: 1. Wall thickening of the ascending colon and cecum which could reflect malignancy or inflammation. 2. Right pericolic gutter abscess contiguous with the irregular segment of colon. Consider GI and surgical consultation. These findings were discussed with Kay Horne PA-C at 13:27 hours on 12/05/2019. Catheter Placement CT 12/06/19 15:04 IMPRESSION: 1. Successful CT-guided abscess drainage. 2. 6 mL [place], opaque, foul-smelling
[2019-12-07] MEDS: POTASSIUM CHLORIDE 20 MEQ TABLET PO (16:19)
[2019-12-07] MEDS: hydrALAZINE HCL 20 MG/ML VIAL 10 MG IV PUSH (17:16)
[2019-12-08] VITALS (9 sets, daily range): BP systolic 144–165; BP diastolic 50–80; PULSE 75–89; RESP 16–18; TEMP 36.1–36.8; O2SAT 96–99
[2019-12-08 05:21] LABS: Hematocrit 24.9 % (37.0-47.0); Hemoglobin 7.5 g/dL (12.0-15.0); Mean Corpuscular HGB Conc 30.1 g/dl (32-36); Mean Corpuscular Volume 79.8 fl (80-100); Mean Platelet Volume 8.6 fl (7.4-10.4); Platelet Count Result 481 k/mm3 (150-375); Red Blood Count 3.12 M/mm3 (4.2-5.4); Red Cell Distribution Width 16.8 % (11.5-14.5); White Blood Count 5.9 K/mm3 (4.5-10.0)
[2019-12-08 05:24] LABS: Blood Urea Nitrogen 3 mg/dL (7-17); Calcium 7.8 mg/dL (8.4-10.2); Carbon Dioxide 26 mmol/L (22-30); Chloride 104 mmol/L (98-107); Estimated CRCL calculation 60 ml/min; Estimated Glomerular Filt Rate > 60; Glucose 83 mg/dL (65-105); Magnesium 1.6 mg/dL (1.6-2.3); Potassium 3.2 mmol/L (3.4-5.0); Sodium 135 mmol/L (137-145)
--- NOTE | 2019-12-08 08:17 | PCOTNOTE ---
Attempted to see patient this am, however patient off floor for testing at this time.
[2019-12-08] MEDS: MAGNESIUM SULF 2 GM/WATER 50ML 2 GM/50 ML BAG IVPB (09:19)
[2019-12-08] MEDS: AMLODIPINE BESYLATE 5 MG TABLET PO (09:22)
--- NOTE | 2019-12-08 09:44 | WPDGIPROGNO ---
Progress Note: A&P Assessment and Plan (1) Pericolonic abscess: Code(s): K63.0 - Abscess of intestine Status: Acute Assessment and Plan: Pigtail drain in place, continue with iv antibiotics Hypaque enema later today by surgery can not proceed with colonoscopy for another 3-4 weeks, pending results of enema and clinical course (2) Abnormal CT scan, colon: Code(s): R93.3 - Abnormal findings on diagnostic imaging of other parts of digestive tract Status: Acute (3) Severe anemia: Code(s): D64.9 - Anemia, unspecified Status: Acute Assessment and Plan: multifactorial, probably also chronic blood loss (? colon) (4) Acute CVA (cerebrovascular accident): Code(s): I63.9 - Cerebral infarction, unspecified Status: Acute Assessment and Plan: on treatment, neurology on board Subjective Date/time seen: 12/08/19 09:44 Interval history: minimal pain in RLQ, tolerating diet and would like to advance diet Review of Systems Review of Systems: All systems reviewed & are unremarkable except as noted in HPI and below Exam Const: General: comfortable and no acute distress HENMT: General nose exam: Normal nares present Eyes: General: appearance normal, both eyes and all related structures Neck: Neck: no JVD Resp: Auscultation: clear to auscultation bilaterally Cardio: Rate: regular rate Rhythm: regular rhythm GI: Inspection: non-distended GI Palp: Yes Soft to palpation and Yes Tenderness to palpation present (GI) (mild ttp in rlq, no rebound. Drain in place) Auscultation: normal bowel sounds Other: pigtail drain in place Skin: General skin exam: normal color Neuro: General: gait normal Speech: normal speech Extrem: General: normal to inspection Psych: Mental Status: mental status grossly normal Objective Data Vital Signs Vital Signs: Vital Signs - 24 hr 12/07/19 12:00 12/07/19 14:00 12/07/19 16:00 Temperature 98.6 F Pulse Rate 75 77 80 Respiratory Rate 14 Blood Pressure 176/56 H Pulse Oximetry 100 12/07/19 17:15 12/07/19 20:00 12/07/19 22:00 Temperature 96.8 F L Pulse Rate 82 88 Respiratory Rate 16 Blood Pressure 179/57 H 160/51 H Pulse Oximetry 98 12/08/19 00:00 12/08/19 04:00 12/08/19 05:32 Temperature 97.0 F L Pulse Rate 80 75 88 Respiratory Rate 16 Blood Pressure 165/80 H Pulse Oximetry 96 12/08/19 08:00 Temperature Pulse Rate 89 Respiratory Rate Blood Pressure Pulse Oximetry Intake/Output Intake/Output: Intake & Output 12/05/19 12/06/19 12/07/19 12/08/19 23:59 23:59 23:59 23:59 Intake Total 555 3435 3515 300 Output Total 0721 908 2047 1200 Balance -1145 2655 1710 -900 Meds/Results Medications: Active Medications Generic Name Dose Route Start Last Admin Trade Name Freq PRN Reason Stop Dose Admin Amlodipine Besylate 5 mg 12/07/19 09:00 12/08/19 09:22 Norvasc PO 5 mg QAM BABAR Administration Aspirin 81 mg 12/04/19 10:55 12/05/19 08:00 Aspirin Ec PO 81 mg QAM BABAR Administration Atorvastatin Calcium 20 mg 12/05/19 09:00 12/05/19 08:00 Lipitor PO 20 mg DAILY BABAR Administration Hydralazine HCl 10 mg 12/04/19 07:29 12/07/19 17:16 Apresoline Hcl Inj IV PUSH 10 mg Q8H PRN Administration Blood Pressure - High Iron Sucrose 100 mg/ Sodium 55 mls @ 220 mls/hr 12/04/19 12:30 12/07/19 12:51 Chloride IVPB Infused Q24H BABAR Infusion Sodium Chloride 1,000 mls @ 80 mls/hr 12/05/19 14:20 12/07/19 20:19 Normal Saline Iv IV CONT 80 mls/hr .[id number] BABAR Administration Piperacillin/Tazobactam/Dextrose 3.375 gm in 50 mls @ 100 mls/hr 12/06/19 00:00 12/08/19 06:38 Zosyn 3.375 Gm/D5w 50ml Pm IVPB Infused Q6HR BABAR Infusion Potassium Chloride 500 mls @ 125 mls/hr 12/08/19 08:30 Kcl 40 Meq/D5w 500 Ml Peripheral IVPB 12/08/19 12:29 ONCE ONE Potassium Chloride 40 meq 12/09/19 17:00 Kcl Tabl
[2019-12-08] MEDS: SODIUM CHLORIDE 0.9% IV 1,000 ML 80 ML IV CONT (09:50)
--- NOTE | 2019-12-08 10:23 | PM.IMPN ---
Progress Note: A&P Assessment and Plan (1) Abdominal abscess: Status: Acute Assessment and Plan: ----CT abdomen/pelvis demonstrates wall thickening of ascending colon and cecum and a 4.8 x 4.7 cm abscess in the right pericolic gutter near this irregular segment now status post drain. Culture growing Bacteroides and E coli. Will continue Zosyn at this time and await sensitivities. She had an enema today as well which shows an apple-core lesion consistent with malignancy. The plan is to do an outpatient colonoscopy once abscess has improved. (2) Acute CVA (cerebrovascular accident): Code(s): I63.9 - Cerebral infarction, unspecified Status: Acute Assessment and Plan: -----Patient presented with slurred speech and right-sided facial droop. Speech is improved, facial droop persists today. MRI brain shows small acute infarct in the left frontal lobe. No arrhythmia noted on telemetry. Carotid ultrasound normal. She was not on any medications when this occurred so will continue aspirin 81 mg that was started here in the hospital as well as atorvastatin. She is currently working with speech therapy here while hospitalized. Echocardiogram reviewed, detailed below. Aneurysmal atrial septum with probable PFO, normal systolic function EF 65-70%, severe pulmonary hypertension. She can follow up with cardiology outpatient if agreeable. (bubble studies aren't being performed currently due to reduced staffing with COVID pandemic). Lower extremity Dopplers negative (3) Severe anemia: Code(s): D64.9 - Anemia, unspecified Status: Acute Assessment and Plan: ----Patient presents with Hgb 6.6 on arrival. Received 1 unit packed RBC 12/03 and IV iron qAM - H&H low but stable. Iron will be given at discharge. GI plans to do a colonoscopy outpatient after this abscess is healed. (4) Acute hypokalemia: Code(s): E87.6 - Hypokalemia Status: Acute Assessment and Plan: -----3.2 today. Likely worsening with her clear liquid diet. Will supplement again and recheck tomorrow (5) Elevated blood-pressure reading without diagnosis of hypertension: Code(s): R03.0 - Elevated blood-pressure reading, without diagnosis of hypertension Status: Acute Assessment and Plan: -----blood pressure has been high but acceptable due to permissive hypertension. Norvasc started and she is still running high. May need to titrate up. (6) Meningioma: Code(s): D32.9 - Benign neoplasm of meninges, unspecified Status: Suspected Assessment and Plan: ------7 mm mass noted on MRI brain most consistent with a meningioma, no edema or midline shift. Unsure of chronicity; not felt to be contributing to her acute symptoms. Recommend outpatient monitoring with imaging in the future. (7) DVT prophylaxis: Code(s): Z29.9 - Encounter for prophylactic measures, unspecified Status: Acute Assessment and Plan: SCDs Subjective Date/time seen: 12/08/19 10:23 Interval history: Patient is a 74-year-old female here for new stroke and abdominal abscess. Patient was seen today and her pain has improved. She is currently not in any pain. She is still having diarrhea from her liquid diet but plans to advance her diet today. Pt denies nausea, vomiting, fevers, chills, chest pain, or shortness of breath. Exam Narrative: Exam Narrative: General: Well developed well nourished patient resting comfortably in bed in NAD HEENT: normocephalic Neck: supple Neuro: Alert and oriented x4. Right-sided facial droop. Equal strength the upper lower extremities 5/5. Able to do [id number] and rapid alternating movements. Mildly slurred speech CV:RRR Resp:CTA Abd: Soft, non distended. No pain to palpation to the area. Drain intact with mild bloody discharge. Positive bowel sounds Extremities: No swelling, erythema, or pain to palpation. Objective Data
--- NOTE | 2019-12-08 10:41 | PCNFU ---
Nutrition Follow-Up Complete: Inadequate oral intake R/T pericolonic abcess as evidence by NPO order Goal: Total intake will meet estimated nutrition needs Progressing towards goal. We will continue current goal. Pt current nutrition is low fiber. Nutrition recommendation: Low fiber Last recorded weight is 57.2 kg. Bowel Motility:+BM 12/07 noted. Labs Reviewed:Cr 0.5, K 3.2,BUN 3,Na 135 Meds Noted:Normal Saline,Lipitor Additional Notes: Spoke with patient over telephone today due to COVID 19 precautions. Patient states she did not get much of her full liquid breakfast today due to xray taken. She has advanced to a low fiber diet, patient did not have any diet questions or concerns at this time. Patient instruction is attached. Diet supplements of Ensure Compact BID have started which will provide patient with 220 kcals and 9 gms protein. Monitoring: Nutrition intake, diet, labs,wt every 5 days
--- NOTE | 2019-12-08 11:30 | PM.PNGS ---
Progress Note: A&P Assessment and Plan (1) Pericolonic abscess: Code(s): K63.0 - Abscess of intestine Status: Acute Assessment and Plan: hypaque enema results reviewed and concerning for mass in R colon, no extravasation, ? colonoscopy, CEA normal, pt c recent CVA so may do workup and likely surgery as outpt, cont drain/abx (2) Acute CVA (cerebrovascular accident): Code(s): I63.9 - Cerebral infarction, unspecified Status: Acute Assessment and Plan: mgmt per primary team, will likely hold off on any surgery at this point until medically optimized Subjective Subjective Date/Time Seen: 12/08/19 11:31 Pt reports no complaints this am. Pt had enema this am and results were reviewed. Pt denies any significant abd pain. Pt zainab FLD at this time. Review of Systems Constitutional: Constitutional: Reports fatigue, Reports lethargy and Reports weakness Cardiovascular: Cardiovascular: Denies chest pain and Denies palpitations Respiratory: Respiratory: Denies dyspnea Gastrointestinal: Gastrointestinal: Denies abdominal pain, Denies constipation, Denies diarrhea, Denies nausea and Denies vomiting Exam Const: General: no acute distress Resp: Auscultation: clear to auscultation bilaterally Cardio: Rate: regular rate Rhythm: regular rhythm GI: Other: S, sl dist, NT, R sided drain C/D/I Objective Data Vital Signs Vital Signs: Vital Signs - 24 hr 12/07/19 12:00 12/07/19 14:00 12/07/19 16:00 Temperature 37.0 C Pulse Rate 75 77 80 Respiratory Rate 14 Blood Pressure 176/56 H Pulse Oximetry 100 12/07/19 17:15 12/07/19 20:00 12/07/19 22:00 Temperature 36.0 C L Pulse Rate 82 88 Respiratory Rate 16 Blood Pressure 179/57 H 160/51 H Pulse Oximetry 98 12/08/19 00:00 12/08/19 04:00 12/08/19 05:32 Temperature 36.1 C L Pulse Rate 80 75 88 Respiratory Rate 16 Blood Pressure 165/80 H Pulse Oximetry 96 12/08/19 08:00 Temperature Pulse Rate 89 Respiratory Rate Blood Pressure Pulse Oximetry Intake/Output Intake/Output: Intake & Output 12/05/19 12/06/19 12/07/19 12/08/19 23:59 23:59 23:59 23:59 Intake Total 555 3435 3515 1350 Output Total 0050 111 6473 1200 Balance -1145 2655 1710 150 Meds/Results Medications: Active Medications Generic Name Dose Route Start Last Admin Trade Name Freq PRN Reason Stop Dose Admin Amlodipine Besylate 5 mg 12/07/19 09:00 12/08/19 09:22 Norvasc PO 5 mg QAM BABAR Administration Aspirin 81 mg 12/04/19 10:55 12/05/19 08:00 Aspirin Ec PO 81 mg QAM BABAR Administration Atorvastatin Calcium 20 mg 12/05/19 09:00 12/05/19 08:00 Lipitor PO 20 mg DAILY BABAR Administration Hydralazine HCl 10 mg 12/04/19 07:29 12/07/19 17:16 Apresoline Hcl Inj IV PUSH 10 mg Q8H PRN Administration Blood Pressure - High Iron Sucrose 100 mg/ Sodium 55 mls @ 220 mls/hr 12/04/19 12:30 12/07/19 12:51 Chloride IVPB Infused Q24H BABAR Infusion Sodium Chloride 1,000 mls @ 80 mls/hr 12/05/19 14:20 12/08/19 09:50 Normal Saline Iv IV CONT 80 mls/hr .[id number] BABAR Administration Piperacillin/Tazobactam/Dextrose 3.375 gm in 50 mls @ 100 mls/hr 12/06/19 00:00 12/08/19 11:09 Zosyn 3.375 Gm/D5w 50ml Pm IVPB 100 mls/hr Q6HR BABAR Administration Potassium Chloride 500 mls @ 125 mls/hr 12/08/19 08:30 Kcl 40 Meq/D5w 500 Ml Peripheral IVPB 12/08/19 12:29 ONCE ONE Potassium Chloride 40 meq 12/09/19 17:00 Kcl Tablet PO 12/09/19 17:01 ONCE ONE Radiology Results: ITS Impressions Head CT 12/04/19 08:16 IMPRESSION: 1. No acute intracranial abnormality. 2. Age related findings. 3. Hyperdense left parafalcine mass most consistent with a meningioma. Brain MRI 12/04/19 10:24 IMPRESSION: 1. Small acute infarct in the left frontal lobe. Carotid Doppler Study 12/04/19 17:02 IMPRESSION: 1. Less than 50% stenosis in the right interna
[2019-12-08] MEDS: IRON SUCROSE COMPLEX 100 MG in SODIUM CHLORIDE 0.9% IV 50 ML 220 MG IVPB (16:17)
[2019-12-09] VITALS: PULSE 72
[2019-12-09] MEDS: SODIUM CHLORIDE 0.9% IV 1,000 ML 80 ML IV CONT (00:06)
[2019-12-09 04:00] VITALS: PULSE 67
[2019-12-09 05:16] LABS: Hematocrit 27.3 % (37.0-47.0); Hemoglobin 8.2 g/dL (12.0-15.0)
[2019-12-09 05:29] LABS: Blood Urea Nitrogen 4 mg/dL (7-17); Calcium 8.1 mg/dL (8.4-10.2); Carbon Dioxide 26 mmol/L (22-30); Chloride 107 mmol/L (98-107); Estimated CRCL calculation 51 ml/min; Estimated Glomerular Filt Rate > 60; Glucose 83 mg/dL (65-105); Potassium 3.5 mmol/L (3.4-5.0); Sodium 137 mmol/L (137-145)
[2019-12-09 05:35] VITALS: BP 111/62; PULSE 84; RESP 16; TEMP 36.3; O2SAT 98
[2019-12-09 08:00] VITALS: PULSE 82
[2019-12-09 08:25] VITALS: BP 157/59; PULSE 87
[2019-12-09] MEDS: AMLODIPINE BESYLATE 5 MG TABLET PO (08:27)
--- NOTE | 2019-12-09 08:55 | PM.PNGS ---
Progress Note: A&P Assessment and Plan (1) Pericolonic abscess: Code(s): K63.0 - Abscess of intestine Status: Acute Assessment and Plan: cont drain, abx, exam benign, ok to dc from surgery standpoint c f/u in 1 wk to assess drain removal, will need colonoscopy in next month or so to assess etiology of abscess Subjective Subjective Date/Time Seen: 12/09/19 08:55 Pt doing well, no complaints. Pt reports good bowel fxn, no abd pain. Pt zainab diet, no nausea. Pt ambulating well c assistance. Review of Systems Constitutional: Constitutional: Denies chills, Reports fatigue and Reports weakness Cardiovascular: Cardiovascular: Denies chest pain and Denies palpitations Respiratory: Respiratory: Denies dyspnea Gastrointestinal: Gastrointestinal: Denies abdominal pain, Denies bloating, Denies constipation, Denies diarrhea, Denies nausea and Denies vomiting Exam Const: General: no acute distress Resp: Auscultation: clear to auscultation bilaterally Cardio: Rate: regular rate Rhythm: regular rhythm GI: Other: SND, brandon TTP around drain site, drain c mod s/s drainage Objective Data Vital Signs Vital Signs: Vital Signs - 24 hr 12/08/19 12:00 12/08/19 14:00 12/08/19 16:00 Temperature 36.8 C Pulse Rate 84 83 88 Respiratory Rate 18 Blood Pressure 144/50 H Pulse Oximetry 99 12/08/19 20:00 12/08/19 22:00 12/09/19 00:00 Temperature 36.4 C L Pulse Rate 85 85 72 Respiratory Rate 16 Blood Pressure 159/70 H Pulse Oximetry 99 12/09/19 04:00 12/09/19 05:35 12/09/19 08:25 Temperature 36.3 C L Pulse Rate 67 84 87 Respiratory Rate 16 Blood Pressure 111/62 157/59 H Pulse Oximetry 98 Intake/Output Intake/Output: Intake & Output 12/06/19 12/07/19 12/08/19 12/09/19 23:59 23:59 23:59 23:59 Intake Total 3435 3515 3595 540 Output Total 780 1805 1208 815 Balance 2457 2151 7333 -277 Meds/Results Medications: Active Medications Generic Name Dose Route Start Last Admin Trade Name Freq PRN Reason Stop Dose Admin Amlodipine Besylate 5 mg 12/07/19 09:00 12/09/19 08:27 Norvasc PO 5 mg QAM BABAR Administration Aspirin 81 mg 12/04/19 10:55 12/05/19 08:00 Aspirin Ec PO 81 mg QAM BABAR Administration Atorvastatin Calcium 20 mg 12/05/19 09:00 12/05/19 08:00 Lipitor PO 20 mg DAILY BABAR Administration Hydralazine HCl 10 mg 12/04/19 07:29 12/07/19 17:16 Apresoline Hcl Inj IV PUSH 10 mg Q8H PRN Administration Blood Pressure - High Iron Sucrose 100 mg/ Sodium 55 mls @ 220 mls/hr 12/04/19 12:30 12/08/19 16:32 Chloride IVPB Infused Q24H BABAR Infusion Sodium Chloride 1,000 mls @ 80 mls/hr 12/05/19 14:20 12/09/19 00:06 Normal Saline Iv IV CONT 80 mls/hr .[id number] BABAR Administration Piperacillin/Tazobactam/Dextrose 3.375 gm in 50 mls @ 100 mls/hr 12/06/19 00:00 12/09/19 06:30 Zosyn 3.375 Gm/D5w 50ml Pm IVPB Infused Q6HR BABAR Infusion Potassium Chloride 40 meq 12/09/19 17:00 Kcl Tablet PO 12/09/19 17:01 ONCE ONE Radiology Results: ITS Impressions Head CT 12/04/19 08:16 IMPRESSION: 1. No acute intracranial abnormality. 2. Age related findings. 3. Hyperdense left parafalcine mass most consistent with a meningioma. Brain MRI 12/04/19 10:24 IMPRESSION: 1. Small acute infarct in the left frontal lobe. Carotid Doppler Study 12/04/19 17:02 IMPRESSION: 1. Less than 50% stenosis in the right internal carotid artery. 2. Less than 50% stenosis in the left internal carotid artery. Abdomen/Pelvis CT 12/05/19 12:56 IMPRESSION: 1. Wall thickening of the ascending colon and cecum which could reflect malignancy or inflammation. 2. Right pericolic gutter abscess contiguous with the irregular segment of colon. Consider GI and surgical consultation. These findings were discussed with Kay Horne PA-C at 13:27 hours on 12/05/2019. Catheter Placement CT 12/06/19 15:0
--- NOTE | 2019-12-09 10:44 | PM.DS ---
DS: Diagnosis Admitting Diagnosis Admitting Diagnosis: Cerebral infarction, unspecified Discharge Diagnosis (1) Abdominal abscess: Status: Acute (2) Acute CVA (cerebrovascular accident): Code(s): I63.9 - Cerebral infarction, unspecified Status: Acute (3) Severe anemia: Code(s): D64.9 - Anemia, unspecified Status: Acute (4) Acute hypokalemia: Code(s): E87.6 - Hypokalemia Status: Acute (5) Elevated blood-pressure reading without diagnosis of hypertension: Code(s): R03.0 - Elevated blood-pressure reading, without diagnosis of hypertension Status: Acute (6) Meningioma: Code(s): D32.9 - Benign neoplasm of meninges, unspecified Status: Suspected (7) DVT prophylaxis: Code(s): Z29.9 - Encounter for prophylactic measures, unspecified Status: Acute DS: Summary Hospital Course Reason for hospitalization: Acute stroke Hospital Course: 74-year-old female who presented emergency room for slurred speech and right-sided facial droop. The patient also had additional complaints of intermittent episodes of nausea, vomiting and diarrhea with a fever of 103 approximately 1 week ago. Vitals in the ER were temperature 97.8?, respiratory rate 20, blood pressure 203/68, pulse ox 100 on room air. Initial white blood cell count 10.0, hemoglobin 6.6, hematocrit 22.2, platelets 642. Sodium 135, potassium 2.8, chloride 101, carbon dioxide 26, BUN 12, creatinine 0.6, glucose 140. Head CT showed no acute Intracranial abnormality but also showed a hyperdense left parafalcine mass consistent with meningioma. Patient was admitted to the hospitalist service and underwent a stroke workup. MRI of the brain showed a small acute infarct in the left frontal lobe. She also has a 7 mm mass consistent with a meningioma. Carotid Doppler showed less than 50% stenosis in both carotid arteries. Showed a normal EF with grade 1 diastolic dysfunction. She also had an aneurysmal atrial septum with a probable PFO noted by color flow. She was unable to have a bubble study because of COVID-19 precautions. I spoke with Cardiology briefly about this and the plan is to follow-up outpatient. Lower extremity ultrasound was negative for DVTs. The patient also has severe pulmonary hypertension and will need a sleep study outpatient. When the patient was admitted, she was complaining of nausea and abdominal pain and a CT of the abdomen pelvis was performed. Thickening of the ascending colon and cecum which could reflect malignancy or inflammation. She also had a right pericolic gutter abscess contiguous with irregular segment of colon. A drain was placed into this area and was drained. Microbiology report showed E coli and Bacteroides as organisms causing infection. The patient had a HIPEC enema which showed an apple-core lesion consistent with malignancy. I spoke to the granddaughter and the patient about this and the patient is very adamant that she is not getting a colonoscopy at this time but may consider this in a few weeks. I also spoke to her about her options if she did not want a colonoscopy as well such as hospice. The patient's anemia was likely due to probable colon cancer and her hemoglobin remained stable after her initial transfusion. The patient saw the surgical team who is going to maintain the drain and see her next week to likely remove the drain. GI saw her as well and plans to do colonoscopy in a few weeks after discharge. The patient did well with physical therapy and occupational therapy but would benefit from speech therapy and home health was set up. Her blood pressure was also elevated and she was started on blood pressure medication, 81 mg of aspirin for her new stroke, atorvastatin due to her stroke, and iron supplements. The patient received 3 days of Zosyn IV and was discharged on 10 days of metronidazole and Cipro. She was educated not to drink alcohol this medication. I spoke to her
--- NOTE | 2019-12-09 11:07 | WPDGIPROGNO ---
Progress Note: A&P Assessment and Plan (1) Acute CVA (cerebrovascular accident): Code(s): I63.9 - Cerebral infarction, unspecified Status: Acute (2) Pericolonic abscess: Code(s): K63.0 - Abscess of intestine Status: Acute Assessment and Plan: Abscess drained status post pigtail catheter in place. Plan is to continue antibiotics. Outpatient colonoscopy by Dr. Conrad in 3-4 weeks. Patient should call his office to have this range. Continued surgical follow-up is advised. (3) Severe anemia: Code(s): D64.9 - Anemia, unspecified Status: Acute Assessment and Plan: Likely multifactorial. Suspect colon lesion is contributing to this anemia. Subjective Date/time seen: 12/09/19 11:07 patient seen in the absence of Dr. Conrad. Patient reports minimal pain. Tolerating diet today. Review of Systems Review of Systems: All systems reviewed & are unremarkable except as noted in HPI and below Exam Narrative: Exam Narrative: Patient alert. Comfortable. Vital signs stable. Abdomen is soft. Bowel sounds are present. Drain appears to be in place. Objective Data Vital Signs Vital Signs: Vital Signs - 24 hr 12/08/19 12:00 12/08/19 14:00 12/08/19 16:00 Temperature 36.8 C Pulse Rate 84 83 88 Respiratory Rate 18 Blood Pressure 144/50 H Pulse Oximetry 99 12/08/19 20:00 12/08/19 22:00 12/09/19 00:00 Temperature 36.4 C L Pulse Rate 85 85 72 Respiratory Rate 16 Blood Pressure 159/70 H Pulse Oximetry 99 12/09/19 04:00 12/09/19 05:35 12/09/19 08:25 Temperature 36.3 C L Pulse Rate 67 84 87 Respiratory Rate 16 Blood Pressure 111/62 157/59 H Pulse Oximetry 98 Intake/Output Intake/Output: Intake & Output 12/06/19 12/07/19 12/08/19 12/09/19 23:59 23:59 23:59 23:59 Intake Total 3435 3515 3595 540 Output Total 780 1805 1208 815 Balance 9364 6021 6001 -489 Meds/Results Medications: Active Medications Generic Name Dose Route Start Last Admin Trade Name Freq PRN Reason Stop Dose Admin Amlodipine Besylate 5 mg 12/07/19 09:00 12/09/19 08:27 Norvasc PO 5 mg QAM BABAR Administration Aspirin 81 mg 12/04/19 10:55 12/05/19 08:00 Aspirin Ec PO 81 mg QAM BABAR Administration Atorvastatin Calcium 20 mg 12/05/19 09:00 12/05/19 08:00 Lipitor PO 20 mg DAILY BABAR Administration Hydralazine HCl 10 mg 12/04/19 07:29 12/07/19 17:16 Apresoline Hcl Inj IV PUSH 10 mg Q8H PRN Administration Blood Pressure - High Iron Sucrose 100 mg/ Sodium 55 mls @ 220 mls/hr 12/04/19 12:30 12/08/19 16:32 Chloride IVPB Infused Q24H BABAR Infusion Sodium Chloride 1,000 mls @ 80 mls/hr 12/05/19 14:20 12/09/19 00:06 Normal Saline Iv IV CONT 80 mls/hr .[id number] BABAR Administration Piperacillin/Tazobactam/Dextrose 3.375 gm in 50 mls @ 100 mls/hr 12/06/19 00:00 12/09/19 06:30 Zosyn 3.375 Gm/D5w 50ml Pm IVPB Infused Q6HR BABAR Infusion Potassium Chloride 40 meq 12/09/19 17:00 Kcl Tablet PO 12/09/19 17:01 ONCE ONE Radiology Results: ITS Impressions Head CT 12/04/19 08:16 IMPRESSION: 1. No acute intracranial abnormality. 2. Age related findings. 3. Hyperdense left parafalcine mass most consistent with a meningioma. Brain MRI 12/04/19 10:24 IMPRESSION: 1. Small acute infarct in the left frontal lobe. Carotid Doppler Study 12/04/19 17:02 IMPRESSION: 1. Less than 50% stenosis in the right internal carotid artery. 2. Less than 50% stenosis in the left internal carotid artery. Abdomen/Pelvis CT 12/05/19 12:56 IMPRESSION: 1. Wall thickening of the ascending colon and cecum which could reflect malignancy or inflammation. 2. Right pericolic gutter abscess contiguous with the irregular segment of colon. Consider GI and surgical consultation. These findings were discussed with Kay Horne PA-C at 13:27 hours on 12/05/2019. Catheter
[2019-12-09 12:00] VITALS: PULSE 82
== END 2019-12-09 16:00 | disposition home health service (06) | DRG 371 ==
LOC: ANHED 03:41 → ANH2MED 05:19
PROVIDERS: Physician Assistant; Surgery; Admitting Provider Family Medicine; Emergency Provider Emergency Medicine; PCP Internal Medicine; Visit Provider Family Medicine
DX: K63.0 Abscess of intestine (principal); I63.9 Cerebral infarction, unspecified; I25.3 Aneurysm of heart; I27.20 Pulmonary hypertension, unspecified; R29.810 Facial weakness; R47.81 Slurred speech; R29.703 NIHSS score 3; B96.20 Unspecified Escherichia coli [E. coli] as the cause of diseases classified elsewhere; B96.89 Other specified bacterial agents as the cause of diseases classified elsewhere; D50.9 Iron deficiency anemia, unspecified; E87.6 Hypokalemia; R03.0 Elevated blood-pressure reading, without diagnosis of hypertension; D32.9 Benign neoplasm of meninges, unspecified; R93.3 Abnormal findings on diagnostic imaging of other parts of digestive tract
CPT/HCPCS: 36415; 36430; 70450; 70553; 74176; 74270; 75989; 80048; 80053; 80061; 81003; 82274; 82378; 82607; 82728; 82746; 83540; 83550; 83605; 83690; 83735; 84100; 84443; 85014; 85018; 85025; 85027; 85610; 85730; 86850; 86900; 86901; 86923; 87040; 87070; 87075; 87076; 87077; 87185; 87186; 87205; 92507; 92522; 93005; 93306; 93880; 93970; 96365; 96375; 97110; 97161; 97165; 97535; 99285; A9270; A9577; C1769; J0360; J1756; J2543; J3475; J3480; J7030; J7050; P9016

== ENCOUNTER 2020-02-08 09:31 | Outpatient (CLI) | payer MEDICARE, SELFPAY ==
[2020-02-08 09:56] LABS: Basophils Absolute Auto 0.1 K/mm3 (0.0-0.1); Basophils Percent Auto 0.9 % (0.2-1.2); Eosinophils Absolute Auto 0.6 K/mm3 (0-0.3); Eosinophils Percent Auto 6.3 % (0-4.4); Hematocrit 33.1 % (37.0-47.0); Hemoglobin 9.8 g/dL (12.0-15.0); Immature Granulocyte Absolute 0.06 K/mm3 (0.00-0.031); Immature Granulocyte Percent A 0.7 % (0-0.5); Lymphocytes Absolute Auto 2.01 K/mm3 (0.9-3.2); Lymphocytes Percent Auto 22.7 % (18.3-44.2); Mean Corpuscular HGB Conc 29.6 g/dl (32-36); Mean Corpuscular Hemoglobin 26.3 pg (26-34); Mean Platelet Volume 8.9 fl (7.4-10.4); Monocytes Absolute Auto 0.8 K/mm3 (0.1-0.6); Monocytes Percent Auto 8.9 % (2.6-8.5); Neutrophils Absolute Auto 5.4 K/mm3 (1.3-6.7); Neutrophils Percent Auto 60.5 % (45.5-73.1); Platelet Count Result 470 k/mm3 (150-375); Red Blood Count 3.72 M/mm3 (4.2-5.4); Red Cell Distribution Width 21.2 % (11.5-14.5); White Blood Count 8.9 K/mm3 (4.5-10.0)
[2020-02-08 10:02] LABS: Hypochromasia 2+ (NORMAL); Platelet Estimate Increased (Adequate)
[2020-02-08 10:03] LABS: Ovalocytes 1+ (NORMAL); Poikilocytosis 1+ (NORMAL)
[2020-02-08 12:04] LABS: Alanine Aminotransferase 26 U/L (4-35); Alkaline Phosphatase 198 U/L (38-126); Aspartate Amino Transferase 33 U/L (14-36); Bilirubin,Total 0.1 mg/dL (0.2-1.3); Blood Urea Nitrogen 24 mg/dL (7-17); Calcium 9.5 mg/dL (8.4-10.2); Carbon Dioxide 23 mmol/L (22-30); Chloride 103 mmol/L (98-107); Estimated Glomerular Filt Rate > 60; Glucose 91 mg/dL (65-105); Potassium 5.3 mmol/L (3.4-5.0); Sodium 135 mmol/L (137-145)
[2020-02-08 12:30] LABS: Carcinoembryonic Antigen 0.9 ng/mL (0.0-3.0)
== END 2020-02-08 09:32 | disposition home or self-care (01) ==
PROVIDERS: PCP Internal Medicine; Visit Provider Internal Medicine Hematology & Oncology
DX: C18.9 Malignant neoplasm of colon, unspecified (principal)
CPT/HCPCS: 36415; 80053; 82378; 85025

== ENCOUNTER 2020-02-17 08:52 | Outpatient (CLI) | payer MEDICARE, SELFPAY ==
--- NOTE | ~2020-02-17 | PE_ITS ---
EXAMINATION: PET skull to mid thigh DATE: 02/17/2020 11:49 INDICATION: Malignant neoplasm of the ascending colon TECHNIQUE: Blood glucose level was 95 mg/dL. 8.776 mCi of 18-fluorodeoxyglucose (18-FDG) was administ ered i.v. Low dose computed tomography (CT) images were acquired from the base of the brain to the pr oximal thighs for attenuation correction and anatomic localization. Positron emission tomography (PET ) images were acquired in the same distribution beginning 86 minutes after injection. Images includin g fused PET/CT images were reconstructed in axial, coronal, and sagittal planes. Automated exposure c ontrol technique was employed. The dose-length product was 298.11mGy-cm. COMPARISON: CT abdomen and pelvis dated 12/05/2019 FINDINGS: Head/neck: There is symmetric increased activity in the oral cavity, palatine tonsils, parotid glands, submandi bular glands, laryngeal muscles and ocular muscles without CT correlate, likely physiologic. No patho logically enlarged cervical lymphadenopathy or suspicious foci of increased FDG uptake in the visuali zed head or neck. Chest: Unilateral small to moderate-sized posteriorly layering left pleural effusion with passive atelectasi s at the basilar and dependent left lower lobe. No suspicious pulmonary nodules, pneumonia, pulmonary edema or other pulmonary infiltrates. Cardiomegaly with atherosclerotic coronary artery calcificatio n. No pericardial effusion. No pathologically enlarged or FDG avid thoracic lymphadenopathy. Abdomen/pelvis/proximal thighs: Postoperative change of prior resection of the cecum and ascending colon with long Jennings's pouch wh ich extends to the proximal transverse colon. Right lower quadrant end ileostomy with parastomal berkley ia of a short length of distal ileum. There is soft tissue density with prominent increased FDG uptak e with maximal SUV of 6.0 at the site of a previously drained abscess cavity at the right paracolic g utter which could represent residual inflammation however is also concerning for locally invasive met astatic disease occurring at the time of the likely malignant perforation causing the original absces s cavity. There is mild likely physiologic FDG uptake throughout the bowels with the exception of a s ignificantly more intense focus of increased FDG uptake with maximal SUV of 7.2 located along the mid sigmoid colon which is without radiologic correlate on the current or prior CT images. Physiologic r enal accumulation and excretion of FDG activity in the kidneys, bladder and along portions of ureters . Normal degree and heterogenous pattern of increased uptake throughout the liver without radiologic correlate or dominant FDG avid lesion. Gallstone within the decompressed gallbladder. The pancreas, s pleen and bilateral adrenal glands are normal. No other abnormal foci of increased FDG uptake or path ologically enlarged lymphadenopathy in the abdomen, pelvis or proximal thighs. Musculoskeletal: Suspicious lytic, blastic or FDG avid bone lesions. There is mild likely inflammatory synovial uptake at the bilateral glenohumeral joints, and bilateral hip joints as well as associated with the bilate ral trochanteric bursae. There is also mild likely degenerative increased uptake at the left ischial tuberosity origin of the proximal hamstring tendons. IMPRESSION: 1. Increased FDG uptake associated with a region of residual soft tissue density at the site of a pre viously drained right paracolic gutter abscess which appeared contiguous with the cecum at the site o f a since resected colon cancer. This could represent residual inflammation or locally invasive metas tatic disease. 2. Relatively discrete indeterminate small region of moderate increased FDG uptake along the mid sigm oid colon without radiologic correlate with minimal relatively uniform uptake throughout the remainde r of the colon. Differential woul
[2020-02-17 09:49] LABS: Glucose Point of Care 95 (65-105)
== END 2020-02-17 08:53 | disposition home or self-care (01) ==
LOC: ANHIMG 08:57
PROVIDERS: PCP Internal Medicine; Visit Provider Internal Medicine Hematology & Oncology
DX: C18.2 Malignant neoplasm of ascending colon (principal); J90 Pleural effusion, not elsewhere classified; R91.8 Other nonspecific abnormal finding of lung field; K80.20 Calculus of gallbladder without cholecystitis without obstruction
CPT/HCPCS: 78815; A9552

== ENCOUNTER 2020-02-29 01:03 | Outpatient (CLI) | payer MEDICARE, SELFPAY ==
[2020-02-29 19:24] LABS: SARS-CoV-2 RNA PCR Negative
== END 2020-02-29 01:04 | disposition home or self-care (01) ==
LOC: ANHCOVIDDT 01:03
PROVIDERS: PCP Internal Medicine; Visit Provider Surgery
DX: Z01.812 Encounter for preprocedural laboratory examination (principal); Z11.59 Encounter for screening for other viral diseases
CPT/HCPCS: 87635; C9803; U0003

== ENCOUNTER 2020-03-02 02:00 | Day surgery (SDC) | payer MEDICARE, SELFPAY ==
[2020-02-28 15:55] VITALS: BMI 22.8
--- NOTE | ~2020-03-02 | XR_ITS ---
EXAMINATION: XR chest port-a-cath/central INDICATION: Port-A-Cath insertion TECHNIQUE: Portable AP chest at 1516 hours COMPARISON: None available FINDINGS: A left subclavian Port-A-Cath has been inserted which ends with its tip in the superior ori a cava. There is minimal kinking of the catheter as it passes between the first rib and clavicle. A s mall left pleural effusion is present. There is no pneumothorax. The cardiomediastinal silhouette is normal. IMPRESSION: 1. Left subclavian Port-A-Cath insertion ending in the superior vena cava. Mild kinking of the cathet er is seen as it passes between the clavicle and first rib which can increase the risk for catheter f racture. 2. Small left pleural effusion. Reviewed, dictated and finalized at location A. IMPRESSION: 1. Left subclavian Port-A-Cath insertion ending in the superior vena cava. Mild kinking of the catheter is seen as it passes between the clavicle and first ri b which can increase the risk for catheter fracture. 2. Small left pleural effusion.
--- NOTE | ~2020-03-02 | XR_ITS ---
EXAMINATION: XR fl guide central line place INDICATION: Port-A-Cath insertion TECHNIQUE: Fluoroscopy exposure time was 22.7 seconds. The DAP for this procedure was 0.569 mGym2. Tw o intraoperative fluoroscopic images are submitted for review. COMPARISON: None available FINDINGS: Fluoroscopic images demonstrate a left subclavian Port-A-Cath ending with its tip in the shearer perior vena cava. Please refer to procedure note for full details. IMPRESSION: 1. Left subclavian Port-A-Cath insertion. Reviewed, dictated and finalized at location A.
[2020-03-02] MEDS: LACTATED RINGERS 1,000 ML 30 ML IV CONT (13:20)
[2020-03-02 13:33] VITALS: BP 169/54; PULSE 93; RESP 18; TEMP 36.6; O2SAT 98
[2020-03-02 13:41] LABS: Prothrombin Time 12.9 Seconds (11.1-14.7)
[2020-03-02 13:42] LABS: Partial Thromboplastin Time 28.3 SECONDS (22.3-36.8)
[2020-03-02] MEDS: KETOROLAC 15 MG/ML VIAL (*BKC) IV PUSH (13:42)
--- NOTE | 2020-03-02 13:50 | P.PNAN_ITS ---
Anes - Initial Pre Proc Eval Procedure: Operation Date: 03/02/20 15:00 Proposed Procedures p Insertion Karen Cath - Ema Gallagher MD Date/Time: 03/02/20 13:50 Surgeon: Ema Gallagher MD Pre Op Diagnosis: Colon Cancer Patient Data Age: 74 Gender: F Height: 5 ft 3 in Weight: 58.5 kg Last Vital Signs Temp 36.6 C 03/02/20 13:33 Pulse 93 03/02/20 13:33 Resp 18 03/02/20 13:33 BP 169/54 H 03/02/20 13:33 Pulse Ox 98 03/02/20 13:33 Allergies Allergy/AdvReac Type Severity Reaction Status Date / Time No Known Allergies Allergy Verified 03/02/20 13:01 Home Medications Medication Instructions Recorded Confirmed Type aspirin 81 mg PO QAM #30 tablet 12/09/19 03/02/20 Rx ferrous sulfate 324 mg PO DAILY #30 tablet 12/09/19 03/02/20 Rx Laboratory Tests 03/02/20 13:25 PT 12.9 Seconds Seconds (11.1-14.7) INR 1.0 APTT 28.3 SECONDS SECONDS (22.3-36.8) Patient hx anesthesia problems: none Family hx anesthesia problems: none PMFSH Past Medical History Medical History (Updated 03/02/20 @ 13:52 by Randy Norris MD) Acute CVA (cerebrovascular accident) Colon cancer Hyperlipidemia Hypertension Surgical History Surgical History History of tubal ligation 1972 Family History Family History Son Cancer unsure of type of caner, reportedly on his leg. Diabetes mellitus Daughter Cerebrovascular accident Diabetes mellitus Social History Social History Social History: Ms. Domínguez lives at home by herself in [place]. She denies alcohol or substance use. Never smoker. She tells me she walks independently without a cane or walker normally. She has a granddaughter, Salud, who checks in on her. She designates Salud to be her surrogate decision maker. Smoking status: Never smoker Alcohol intake: never Substance use: never Substance use type: does not use Gender identity (if verbalized by the patient): Female Spiritual care concerns: No Agree to blood products: Yes Anes - Eval Final PreProcedure Day of Procedure 03/02/20 13:50 Patient weight: normal Heart: regular rate and rhythm Lungs: clear to auscultation Airway: Mallampati scale class II Neurological: other (alert hard of hearing) Last oral intake: >/= 8 hours ASA classification: III Emergent: no Anesthetic plan: proceed Anesthesia type and monitoring: general GIVS and standard monitoring Informed Consent: The patient's anesthetic plan and its attendant risks and benefits were discussed with the patient/family/POA. Questions were solicited and answers provided to the satisfaction of the patient/family/POA.
--- NOTE | 2020-03-02 13:53 | PM.IMHP ---
H&P: HPI History of Present Illness Chief complaint: Colon Cancer Narrative: Darline Domínguez is a 74 year old female c metastatic colon cancer s/p resection, ostomy. Pt is going to undergo adjuvant chemotx. Pt denies any previous central venous catherterizations. Pt is right handed. Review of Systems Constitutional: Constitutional: Denies chills, Reports fatigue, Reports lethargy and Reports weakness Eyes: Eyes: Reports no additional eye complaints ENT: Reports Normal hearing present and Denies dysphagia Cardiovascular: Cardiovascular: Denies chest pain and Denies palpitations Respiratory: Respiratory: Denies dyspnea Gastrointestinal: Gastrointestinal: Denies abdominal pain, Denies bloating, Denies constipation, Denies diarrhea, Denies nausea and Denies vomiting Genitourinary: Genitourinary: Denies dysuria Musculoskeletal: Musculoskeletal: Reports no additional musculoskeletal complaints Integumentary/Breasts: Skin/Breast: Reports system reviewed and no additional complaints, except as docu Neurologic: Reports system reviewed and no additional complaints, except as documented Psychiatric: Psychiatric: Reports no additional psychiatric complaints [facility] Past Medical History Medical History Acute CVA (cerebrovascular accident) Colon cancer Hyperlipidemia Hypertension Surgical History Surgical History History of tubal ligation 1972 Family History Family History Son Cancer unsure of type of caner, reportedly on his leg. Diabetes mellitus Daughter Cerebrovascular accident Diabetes mellitus Social History Social History Social History: Ms. Domínguez lives at home by herself in [place]. She denies alcohol or substance use. Never smoker. She tells me she walks independently without a cane or walker normally. She has a granddaughter, Salud, who checks in on her. She designates Salud to be her surrogate decision maker. Smoking status: Never smoker Alcohol intake: never Substance use: never Substance use type: does not use Gender identity (if verbalized by the patient): Female Spiritual care concerns: No Agree to blood products: Yes Meds Home Medications and Allergies Home Medications Medication Instructions Recorded Confirmed Type aspirin 81 mg PO QAM #30 tablet 12/09/19 03/02/20 Rx ferrous sulfate 324 mg PO DAILY #30 tablet 12/09/19 03/02/20 Rx Allergies Allergy/AdvReac Type Severity Reaction Status Date / Time No Known Allergies Allergy Verified 03/02/20 13:01 Vital Signs Vital Signs - 24 hr 03/02/20 13:33 Temperature 36.6 C Pulse Rate 93 Respiratory Rate 18 Blood Pressure 169/54 H Pulse Oximetry 98 Exam Const: General: comfortable and no acute distress HENMT: Mouth: Yes moist mucous membranes Eyes: Pupils: Equal, round and reactive pupils present EOM: EOMs intact bilaterally Neck: Neck: not supple and No no JVD Lymphatic: lymphadenopathy not noted Resp: Auscultation: clear to auscultation bilaterally Cardio: Rate: regular rate Rhythm: regular rhythm GI: GI Palp: Yes Soft to palpation, No Tenderness to palpation present (GI) and No Hernia present Other: ostomy +fxn Skin: General skin exam: normal color and no rashes or lesions noted Extrem: General: normal to inspection Psych: Mental Status: mental status grossly normal Assessment and Plan Assessment and plan (1) Iron deficiency anemia: Qualifiers: Iron deficiency anemia type: unspecified iron deficiency Qualified Code(s): D50.9 - Iron deficiency anemia, unspecified Code(s): D50.9 - Iron deficiency anemia, unspecified Status: Acute Assessment and Plan: stable, cont iron supplementation (2) Colon cancer: Code(
[2020-03-02] MEDS: ceFAZolin 2 GM/D5W 50 ML 2 GM/50 ML BAG IVPB (14:15)
[2020-03-02] MEDS: BUPIVACAINE/EPINEPHRINE 0.5% 10 ML VIAL 30 ML INFILTRATE (14:35)
[2020-03-02] MEDS: HEPARIN SODIUM 5,000 UNITS/ML VIAL 5000 UNITS IRRIGATION (14:36)
[2020-03-02] MEDS: HEPARIN SODIUM, PORCINE 10,000 UNITS/10 ML VIAL 2000 UNITS IV PUSH (14:37)
[2020-03-02 14:56] VITALS: BP 155/72; PULSE 84; RESP 20; O2SAT 100
--- NOTE | 2020-03-02 15:10 | PM.PROC ---
Procedure Note - Detailed Date of procedure: 03/02/20 Pre-op diagnosis: Colon Cancer Post-op diagnosis: same Procedure performed: placement of left subclavian venous access device under fluroscopic guidance Description of procedure: Patient was brought into the operating room and placed in the supine position. After adequate induction of mac anesthesia, the patient was prepped and draped in normal sterile fashion. Time-out was then done to verify the patient's identity, as well as the procedure being performed. I began by making a small incision in the left chest, I then gained access into the left subclavian vein with an 18 gauge needle. I then placed the guidewire into the vein and confirmed placement via fluoroscopic guidance. I then locally anesthetized the area in the left chest. I then enlarged the incision around the guidewire including making a subcutaneous pocket inferiorly to allow placement of the port itself. I then placed a dilating sheath over the guidewire into the left subclavian vein via sterile Seldinger technique. This was once again done and confirmed via fluoroscopic guidance. I then removed the dilator and the guidewire, now just leaving the sheath in the vein. I then fed the previously flushed catheter into the left subclavian vein under fluoroscopic guidance. At approximately 20 cm, the catheter was noted to be near the atrial caval junction. I then peeled away the sheath, now just leaving the catheter in the vein. I then was able to easily draw and flush from the catheter. The catheter was cut to fit and attached to the port itself. The port was placed into the previously made subcutaneous pocket and sutured in with 0 Ethibond suture. Final fluoroscopic view showed the termination of the catheter at the atrial caval junction with a nice smooth curvature back to the port itself. I was able to gain access to the port with a Figueroa needle and was able to easily draw and flush from the port. I then flushed 4 cc of a final heparin flush into the port. The incision was closed with 3 0 Vicryl suture in the subcutaneous tissue and the skin was closed with 4 O Monocryl subcuticular suture. Dermabond was then placed on wound. The patient tolerated the procedure well and will be sent to the recovery room in stable condition. Implants: L SCV VAD Anesthesia: MAC and local Surgeon: Ema Gallagher MD Estimated blood loss (mL): 5 Drains: No Packing: No Pathology: none sent Complications: No immediate complications Condition: stable Disposition: PACU Findings: placement of L SCV VAD via 1st stick
[2020-03-02 15:26] VITALS: BP 163/80; PULSE 78; RESP 16
[2020-03-02 15:45] VITALS: BP 155/70; PULSE 83; RESP 16
== END 2020-03-02 15:53 | disposition home or self-care (01) ==
PROVIDERS: PCP Internal Medicine; Visit Provider Surgery
PROC: (CPT 36561; principal; 2020-03-02 15:00)
DX: C18.9 Malignant neoplasm of colon, unspecified (principal); I10 Essential (primary) hypertension; E78.5 Hyperlipidemia, unspecified; Z86.73 Personal history of transient ischemic attack (TIA), and cerebral infarction without residual deficits; Z79.82 Long term (current) use of aspirin
CPT/HCPCS: 36561; 36415; 77001; 85610; 85730; 87635; C1788; C9803; J0690; J1644; J1885; J2704; J3010; J7030; J7120; U0003

== ENCOUNTER 2020-04-26 23:19 | Inpatient (IN) | payer MEDICARE, SELFPAY ==
--- NOTE | ~2020-04-26 | CT_ITS ---
EXAMINATION: CT brain wo con DATE: 04/26/2020 23:55 INDICATION: Generalized weakness. TECHNIQUE: Computed tomography (CT) of the head was performed without intravenous contrast. The mA wa s adjusted according to patient size. Iterative reconstruction technique was employed. The dose-lengt h product was 605.33 mGy-cm. COMPARISON: Head CT 12/04/2019 FINDINGS: There are scattered areas of low attenuation in the cerebral white matter. There is an old infarct in left frontal lobe. There is no intracranial hemorrhage or acute infarct. There is a 7 mm h yperdense mass in the left frontoparietal parafalcine region. The ventricles are normal in size. The orbits are normal. The mastoid air cells are normal. The paranasal sinuses are clear. IMPRESSION: 1. Old infarct in left frontal lobe. 2. Stable moderate nonspecific cerebral white matter disease, which likely represents chronic small v essel ischemic disease. 3. Stable 7 mm hyperdense mass in the left frontoparietal parafalcine region, consistent with a menin gioma. Reviewed, dictated and finalized at location A. IMPRESSION: 1. Old infarct in left frontal lobe. 2. Stable moderate nonspecific cerebral white matter disease, which likely repr esents chronic small vessel ischemic disease. 3. Stable 7 mm hyperdense mass in the left frontoparietal parafalcine region, c onsistent with a meningioma.
--- NOTE | ~2020-04-26 | XR_ITS ---
EXAMINATION: XR chest 2V DATE: 04/26/2020 23:59 INDICATION: Weakness. TECHNIQUE: Frontal and lateral views of the chest were obtained. COMPARISON: Chest single view 03/02/2020 FINDINGS: A calcified left lung nodule and calcified left hilar lymph nodes are consistent with old g ranulomatous disease. No pleural effusion or pneumothorax. The heart size is normal. There is a left subclavian port with tip in superior vena cava. IMPRESSION: 1. No acute cardiopulmonary disease. Reviewed, dictated and finalized at location A.
--- NOTE | 2020-04-26 23:08 | ED.NAVMDI ---
HPI - Nausea/Vomiting/Diarrhea General Chief complaint: Nausea/Vomiting/Diarrhea Stated complaint: n/v Source: patient, family and EMS Mode of arrival: EMS Limitations: no limitations History of Present Illness HPI Narrative: Patient is a 75-year-old female with a history of colon cancer who presents for evaluation of decreased oral intake and weakness. Patient states that she has been nauseated since her last chemotherapy treatment and has been unable to tolerate any oral intake. She states that she was able to eat to [employer] yesterday, did have one episode of emesis and is feeling very fatigued and weak. She denies fever, chills, chest pain, abdominal pain. She has had normal output from her ostomy. Patient reports part of the decreased oral intake is due to ulcerations in her mouth which she typically gets with chemotherapy treatment, but seem more severe with this treatment. Patient denies any numbness in her lower extremities. She lives at home independently but states she has had difficulty with ambulation due to feeling weak. Patient also Dr. Aguilar with oncology. Related Data Home Medications Medication Instructions Recorded Confirmed ferrous sulfate 324 mg PO TID 03/20/20 04/18/20 ondansetron 4 mg PO Q6H PRN 04/05/20 04/18/20 Allergies Allergy/AdvReac Type Severity Reaction Status Date / Time No Known Allergies Allergy Verified 03/02/20 13:01 Review of Systems Review of Systems: Narrative: CONSTITUTIONAL: Denies fever, chills, or sweats. EYES: Denies visual changes, redness, or discharge. ENT: Denies rhinorrhea, congestion, sore throat, or otalgia. CARDIOVASCULAR: Denies chest pain, palpitations, or edema. RESPIRATORY: Denies cough or dyspnea. GASTROINTESTINAL: Denies abdominal pain, reports nausea and vomiting GENITOURINARY: Denies dysuria or hematuria. SKIN: Denies rash or itching. MUSCULOSKELETAL: Denies back pain, joint pain, or myalgia. NEUROLOGIC: Denies headache, numbness, reports nonfocal weakness PMF Past Medical History Medical History Acute CVA (cerebrovascular accident) Colon cancer Hyperlipidemia Hypertension Surgical History Surgical History History of tubal ligation 1972 Social History Social History Social History: Ms. Domínguez lives at home by herself in [place]. She denies alcohol or substance use. Never smoker. She tells me she walks independently without a cane or walker normally. She has a granddaughter, Salud, who checks in on her. She designates Salud to be her surrogate decision maker. Smoking status: Never smoker Alcohol intake: never Substance use: never Substance use type: does not use Gender identity (if verbalized by the patient): Female Spiritual care concerns: No Agree to blood products: Yes Exam Narrative: Exam Narrative: GENERAL: Awake, alert, conversant, thin, elderly HEAD: Normocephalic, atraumatic. EYES: PERRLA and EOMI. ENT: Nares clear, no rhinorrhea or epistaxis. Mucous membranes dry. Aphthous ulcers throughout mouth. NECK: Supple. CHEST: No respiratory distress, breathing even and non labored. Port over left chest wall, mild ecchymoses. HEART: Borderline tachycardic rate, sinus rhythm ABDOMEN:Non distended, non tender, ostomy in place EXTREMITIES: Normal range of motion. No edema. SKIN: Pale, warm, dry, no rash. NEURO:No focal deficits. Alert and oriented x3 Course Vital Signs Vital signs: Vital Signs Temperature 37.2 C 04/26/20 23:17 Pulse Rate 104 H 04/26/20 23:17 Respiratory Rate 19 04/26/20 23:17 Blood Pressure 149/108 H 04/26/20 23:17 Pulse Oximetry 97 04/26/20 23:17 Temperature 37.0 C 04/27/20 01:45 Pulse Rate 108 H 04/27/20 01:45 Respiratory Rate 20 04/27/20 01:45 Blood Pressure 115/90 04/27/20 01:45 Pulse Oximetry 99
[2020-04-26 23:17] VITALS: BP 149/108; PULSE 104; RESP 19; TEMP 37.2; O2SAT 97
--- NOTE | 2020-04-26 23:26 | ECG_ITS ---
Measurements Intervals [place] Rate: 117 P: IA: 0 QRS: -76 QRSD: 93 T: 78 QT: 306 QTc: 427 Interpretive Statements SINUS TACHYCARDIA LEFT AXIS DEVIATION POSSIBLE LEFT ATRIAL ENLARGEMENT CONSIDER ANTEROSEPTAL INFARCT, AGE INDETERMINATE INFERIOR INFARCT, AGE INDETERMINATE ABNORMAL ECG Electronically Signed On 04-28-2020 15:19:50 CDT by Quincy Clarke D.O.
[2020-04-26] MEDS: ONDANSETRON INJ 4 MG/2 ML VIAL IV PUSH (23:48)
[2020-04-26] MEDS: SODIUM CHLORIDE 0.9% IV 1,000 ML 999 ML IV CONT (23:48)
[2020-04-26 23:52] LABS: Basophils Percent Auto 0.5 % (0.2-1.2); Eosinophils Percent Auto 0.3 % (0-4.4); Immature Granulocyte Absolute 0.02 K/mm3 (0.00-0.031); Immature Granulocyte Percent A 0.3 % (0-0.5); Lymphocytes Absolute Auto 1.31 K/mm3 (0.9-3.2); Lymphocytes Percent Auto 21.7 % (18.3-44.2); Mean Corpuscular HGB Conc 33.3 g/dl (32-36); Mean Corpuscular Hemoglobin 28.6 pg (26-34); Mean Corpuscular Volume 85.7 fl (80-100); Mean Platelet Volume 10.6 fl (7.4-10.4); Monocytes Absolute Auto 0.6 K/mm3 (0.1-0.6); Monocytes Percent Auto 9.5 % (2.6-8.5); Neutrophils Absolute Auto 4.1 K/mm3 (1.3-6.7); Neutrophils Percent Auto 67.7 % (45.5-73.1); Platelet Count Result 202 k/mm3 (150-375); Red Cell Distribution Width 15.9 % (11.5-14.5)
[2020-04-26 23:58] LABS: INR 1.2; Prothrombin Time 14.8 Seconds (11.1-14.7)
[2020-04-26 23:59] LABS: Partial Thromboplastin Time 34.1 SECONDS (22.3-36.8)
[2020-04-27] VITALS (19 sets, daily range): BP systolic 115–164; BP diastolic 47–105; PULSE 72–114; RESP 12–25; TEMP 35.8–37; O2SAT 98–100; BMI 21.2
[2020-04-27 00:10] LABS: Alanine Aminotransferase 21 U/L (4-35); Albumin Level 4.6 g/dL (3.5-5.1); Alkaline Phosphatase 155 U/L (38-126); Anion Gap 14 mmol/L (8-16); Aspartate Amino Transferase 30 U/L (14-36); Bilirubin,Total 0.4 mg/dL (0.2-1.3); Carbon Dioxide 17 mmol/L (22-30); Chloride 98 mmol/L (98-107); Estimated CRCL calculation 11 ml/min; Estimated Glomerular Filt Rate 14; Glucose 132 mg/dL (65-105); Lipase 390 U/L (23-300); Potassium 6.4 mmol/L (3.4-5.0); Sodium 129 mmol/L (137-145)
[2020-04-27 00:12] LABS: Troponin I 0.032 ng/mL (0.000-0.034)
[2020-04-27 00:14] LABS: NT Pro B Type Natriuretic Pept 1750 PG/ML (5-100)
[2020-04-27 00:26] LABS: Blood Urea Nitrogen 143 mg/dL (7-17)
[2020-04-27 00:43] LABS: Add Urine Microscopic? NO; Appearance Urine Clear (Clear); Bilirubin Urine Negative (Negative); Blood Urine Negative (Negative); Color Urine Yellow (Yellow); Glucose Urine UA Negative (Negative); Ketones Urine Negative (Negative); Leukocyte Esterase Ur Negative LEU/UL (Negative); Nitrate Urine Negative (Negative); Protein Urine Negative (Negative); Specific Grav Ur 1.015 (1.001-1.035); Urobilinogen Urine Negative mg/dL (<2.0)
[2020-04-27] MEDS: SODIUM BICARBONATE 8.4% 50 MEQ/50 ML VIAL IV PUSH (00:43)
[2020-04-27] MEDS: DEXTROSE 50% 25 GM/50 ML SYRINGE IV PUSH (00:43)
[2020-04-27] MEDS: CALCIUM GLUCONATE 1,000 MG/10 ML VIAL 2000 MG IV PUSH (00:45)
[2020-04-27] MEDS: INSULIN HUMAN REGULAR (*BKC) 100 UNITS/ML 10 UNITS IV PUSH (01:28)
--- NOTE | 2020-04-27 01:55 | PC.NURSE ---
pt has generalized rash and hives along with some itching. edp steven notified. 25mg of benadryl ordered.
[2020-04-27] MEDS: diphenhydrAMINE HCl INJ 50 MG/ML VIAL 25 MG IV PUSH (02:00)
[2020-04-27] MEDS: methylPREDNISolone SOD SUCC 125 MG VIAL IV PUSH (02:00)
[2020-04-27] MEDS: FAMOTIDINE 20 MG/2 ML VIAL IV PUSH (02:00)
--- NOTE | 2020-04-27 03:29 | PM.IMHP ---
H&P: HPI History of Present Illness Date/Time: 04/27/20 03:29 Chief complaint: Hyperkalemia, dehydration, acute kidney injury Narrative: This is a pleasant 75-year-old female who is known to have colon cancer status post right hemicolectomy with colostomy bag in place, hypertension, and hyperlipidemia who presented to the hospital health system with a complaint of increased generalized weakness and decreased oral intake of food and fluids over the past week. The patient is known to received chemotherapy for her colon cancer and her last treatment was about a week ago. She reports decreased tolerance of oral intake of food and fluid secondary to her chemotherapy. she denies any fevers, chills, cough, shortness of breath, chest pain, abdominal pain, or new focal neurological deficits. patient was evaluated in the emergency room this evening and found to be dehydrated and in acute renal failure with acute hyperkalemia. the patient was treated with calcium gluconate, insulin and dextrose, and sodium bicarbonate. The patient's oncologist, Dr. Aguilar has been consulted. no other complaints at this time. On my encounter with the patient she has diffuse itchy hives on her body including her upper and lower extremities and trunk. The patient was treated in the emergency room with Solu-Medrol, Benadryl, and Pepcid for same. It is unknown what has caused her acute allergy. Review of Systems Review of Systems: All systems reviewed & are unremarkable except as noted in HPI and below PMFSH Past Medical History Medical History Acute CVA (cerebrovascular accident) Colon cancer Hyperlipidemia Hypertension Surgical History Surgical History H/O colectomy History of tubal ligation 1971 Family History Family History Son Cancer unsure of type of caner, reportedly on his leg. Diabetes mellitus Daughter Cerebrovascular accident Diabetes mellitus Social History Social History Social History: Ms. Domínguez lives at home by herself in [place]. She denies alcohol or substance use. Never smoker. She tells me she walks independently without a cane or walker normally. She has a granddaughter, Salud, who checks in on her. She designates Salud to be her surrogate decision maker. Smoking status: Never smoker Alcohol intake: never Substance use: never Substance use type: does not use Gender identity (if verbalized by the patient): Female Spiritual care concerns: No Agree to blood products: Yes Meds Home Medications and Allergies Home Medications Medication Instructions Recorded Confirmed Type aspirin 81 mg PO QAM #30 tablet 12/09/19 04/27/20 Rx ferrous sulfate 324 mg PO TID 03/20/20 04/27/20 History ondansetron 4 mg PO Q6H PRN 04/05/20 04/27/20 History Allergies Allergy/AdvReac Type Severity Reaction Status Date / Time No Known Allergies Allergy Verified 03/02/20 13:01 Vital Signs Vital Signs - 24 hr 04/26/20 23:17 04/27/20 00:18 04/27/20 01:44 Temperature 37.2 C Pulse Rate 104 H 104 H 109 H Respiratory Rate 19 25 H 19 Blood Pressure 149/108 H 157/105 H 164/74 H Pulse Oximetry 97 100 98 04/27/20 01:45 04/27/20 02:00 04/27/20 02:14 Temperature 37.0 C 36.6 C Pulse Rate 108 H 92 114 H Respiratory Rate 20 20 Blood Pressure 115/90 151/91 H Pulse Oximetry 99 99 04/27/20 02:28 04/27/20 02:36 Temperature Pulse Rate 114 H 114 H Respiratory Rate 20 20 Blood Pressure Pulse Oximetry 99 99 Exam Const: General: cooperative, alert, awake, acute distress mild, ill appearing chronically, tired appearing and uncomfortable Nutritional Appearance: thin and underweight Orientation/consciousness: patient oriented x3 HENMT: Head: normal to insp
[2020-04-27] MEDS: LACTATED RINGERS 1,000 ML 125 ML IV CONT (03:39)
[2020-04-27] MEDS: SODIUM CHLORIDE 0.9% IV 1,000 ML 125 ML IV CONT ×2 (04:58→12:31)
[2020-04-27 06:34] LABS: Potassium 4.8 mmol/L (3.4-5.0)
[2020-04-27 06:37] LABS: Anion Gap 11 mmol/L (8-16); Calcium 9.8 mg/dL (8.4-10.2); Carbon Dioxide 19 mmol/L (22-30); Chloride 101 mmol/L (98-107); Estimated CRCL calculation 14 ml/min; Estimated Glomerular Filt Rate 19; Glucose 87 mg/dL (65-105); Sodium 131 mmol/L (137-145)
[2020-04-27 06:53] LABS: Blood Urea Nitrogen 130 mg/dL (7-17)
[2020-04-27] MEDS: FERROUS SULFATE 324 MG TABLET PO ×2 (12:19→16:26)
[2020-04-27] MEDS: ASPIRIN 81 MG ENTERIC TABLET PO (12:19)
[2020-04-27] MEDS: CENTRAL LINE FLUSH 10 ML IV PUSH ×2 (12:31→20:41)
--- NOTE | 2020-04-27 13:36 | PM.IMPN ---
Progress Note: A&P Assessment and Plan (1) Acute dehydration: Code(s): E86.0 - Dehydration Status: Acute Assessment and Plan: Secondary to poor p.o. intake. Patient had not been eating or drinking due to sores in her mouth from chemo. Sores have improved and she has been tolerating p.o. intake during admission. Continue gentle IV fluids monitor urine output (2) Acute kidney injury: Code(s): N17.9 - Acute kidney failure, unspecified Status: Acute Assessment and Plan: secondary to acute dehydration as above. Creatinine at presentation 3.3 and BUN 143. She has had improvement with IV fluid rehydration. Creatinine 2.5 and BUN 130 today. Continue IV fluid rehydration as above avoid nephrotoxic agents and renally dose medications (3) Acute hyperkalemia: Code(s): E87.5 - Hyperkalemia Status: Acute Assessment and Plan: Potassium was 6.4 upon presentation. She was treated with calcium gluconate, insulin and dextrose, and sodium bicarbonate. Most likely secondary to acute dehydration. She is not on any potassium sparing medications. No prior episodes of acute hyperkalemia upon review. No evidence of peaked T-waves or arrhythmia on EKG. Telemetry reviewed showing NSR. Potassium improved to 4.8 this morning. Monitor potassium daily Continue gentle IV fluids as above. Avoid potassium-sparing agents. Given improvement, will downgrade to Accolo (4) Chemotherapy induced nausea and vomiting: Code(s): R11.2 - Nausea with vomiting, unspecified; T45.1X5A - Adverse effect of antineoplastic and immunosuppressive drugs, initial encounter Status: Acute Assessment and Plan: She reported episode vomiting on 04/25/2020 and poor oral intake. Lipase is very mildly elevated at 390. Pancreatitis is considered, although patient has no abdominal or epigastric pain and no further episodes of nausea or vomiting. She is tolerating a regular diet at this time. Antiemetics as needed continue gentle IV fluids repeat lipase tomorrow morning. Consider additional workup if remains elevated. (5) Generalized weakness: Code(s): R53.1 - Weakness Status: Acute Assessment and Plan: Most likely secondary to malignancy/chemotherapy. Patient complains of feeling weak and fatigued. She fell on 04/26/2020 and hit her arm. She complains of no other injury, she did not hit her head, and she did not lose consciousness. she lives at home alone, and her 3 sons come to stay with her. PT and OT evaluation appreciated (6) Colon cancer: Qualifiers: Colon location: unspecified part of colon Qualified Code(s): C18.9 - Malignant neoplasm of colon, unspecified Code(s): C18.9 - Malignant neoplasm of colon, unspecified Status: Chronic Assessment and Plan: S/p colectomy. She is receiving chemotherapy per Dr. Aguilar currently. Dr. Aguilar has been consulted and recommendations are appreciated. (7) Meningioma: Code(s): D32.9 - Benign neoplasm of meninges, unspecified Status: Suspected Assessment and Plan: CT head shows stable 7 mm hyperdense mass in left frontoparietal region, consistent with meningioma. This was also noted on MRI in November 2019. No change in size. No further evaluation required at this time. Follow-up with PCP/appropriate specialist. (8) Hypertension: Qualifiers: Hypertension type: unspecified Qualified Code(s): I10 - Essential (primary) hypertension Code(s): I10 - Essential (primary) hypertension Status: Chronic Assessment and Plan: Blood pressure reviewed today and mildly elevated in the 150-160s systolic. Overall, this is pretty well controlled for her age. She is not on any antihypertensives. Monitor blood pressure closely. Consider addition of antihypertensive agent as needed. (9) Elevated brain n
--- NOTE | 2020-04-27 17:50 | PDONCCN ---
HPI - Date of Consult Date/Time: 04/27/20 17:50 Requesting Physician: Jacinda Barnett PA-C Primary Care Provider: Buddy VogtMD - Consult Narrative Reason for consult: Metastatic colon cancer Narrative: Darline Domínguez is a 75 year old female This is a pleasant 75-year-old female who had locally advanced colon cancer with residual disease status post colectomy and currently receiving adjuvant chemotherapy with FOLFOX regimen. She had chemotherapy cycle 3. Done just about a week ago. She came into the hospital with generalized tiredness fatigue and dehydration. She had been eating poorly for last several days due to sores in the mouth. She denies any fevers and chills. She denies any bleeding and bruising. She had 1 episode of nausea after denies any diarrhea. She was found to be in acute renal failure with elevated potassium level. She was quite dehydrated and IV fluid was started. She is feeling much better today. She is eating better. Review of Systems - Review of Systems All systems reviewed & are unremarkable except as noted in HPI and [facility] Medical History: Medical History (Last Reviewed 04/27/20 @ 03:36 by Ayaz Mercado MD) Acute CVA (cerebrovascular accident) Colon cancer Hyperlipidemia Hypertension Surgical History: Surgical History (Last Updated 04/27/20 @ 03:36 by Ayaz Mercado MD) H/O colectomy History of tubal ligation 1971 Family History: Family History (Last Reviewed 04/27/20 @ 03:36 by Ayaz Mercado MD) Son Cancer unsure of type of caner, reportedly on his leg. Diabetes mellitus Daughter Cerebrovascular accident Diabetes mellitus - Social History Social History: Social History (Last Reviewed 04/27/20 @ 03:36 by Ayaz Mercado MD) Gender Identity: Gender identity (if verbalized by the patient): Female Alcohol Use: Alcohol intake: never Substance Use: Substance use: never Substance use type: does not use Others: Spiritual care concerns: No Agree to blood products: Yes Smoking Status: Smoking status: Never smoker Meds Home Medications Medication Instructions Recorded Confirmed Type aspirin 81 mg PO QAM #30 tablet 12/09/19 04/27/20 Rx ferrous sulfate 324 mg PO TID 03/20/20 04/27/20 History ondansetron 4 mg PO Q6H PRN 04/05/20 04/27/20 History Allergies Allergy/AdvReac Type Severity Reaction Status Date / Time No Known Allergies Allergy Verified 03/02/20 13:01 Results - Labs CBC & Chem 7: 04/26/20 23:42 04/27/20 05:02 Labs: Short CBC 04/26/20 Range/Units 23:42 WBC 6.0 (4.5-10.0) K/mm3 Hgb 14.0 (12.0-15.0) g/dL Hct 42.0 (37.0-47.0) % Plt Count 202 (150-375) k/mm3 BMP 04/26/20 04/27/20 23:42 05:02 Sodium 129 L 131 L Potassium 6.4 H* 4.8 Chloride 98 101 Carbon Dioxide 17 L 19 L BUN 143 H D 130 H D Creatinine 3.30 H 2.50 H Glucose 132 H 87 Calcium 10.0 9.8 Cardiac Enzymes 04/26/20 Range/Units 23:42 Troponin I 0.032 (0.000-0.034) ng/mL Liver Function 04/26/20 Range/Units 23:42 Total Bilirubin 0.4 (0.2-1.3) mg/dL AST 30 (14-36) U/L ALT 21 (4-35) U/L Alkaline Phosphatase 155 H (38-126) U/L Albumin 4.6 (3.5-5.1) g/dL Urine 04/27/20 Range/Units 00:34 Urine Color Yellow (Yellow) Urine Appearance Clear (Clear) Urine pH 5.0 (5.0-9.0) Ur Specific [place] 1.015 (1.001-1.035) Urine Protein Negative (Negative) mg/dL Urine Glucose (UA) Negative (Negative) mg/dL Assessment and Plan - Additional Plan Locally advanced colon cancer status post colectomy. Patient is receiving adjuvant chemotherapy with FOLFOX regimen and had received cycle 3. About a week ago. She came into the hospital with generalized weakness tiredness fatigue and dehydration. She had been eating poorly. She had episode of nausea vomiting but denies any diar
[2020-04-28] VITALS (12 sets, daily range): BP systolic 124–149; BP diastolic 48–62; PULSE 66–84; RESP 18–20; TEMP 36.2–36.7; O2SAT 96–100
[2020-04-28] MEDS: SODIUM CHLORIDE 0.9% IV 1,000 ML 125 ML IV CONT (02:00)
[2020-04-28] MEDS: CENTRAL LINE FLUSH 10 ML IV PUSH ×3 (04:43→20:22)
[2020-04-28 06:00] LABS: Alanine Aminotransferase 12 U/L (4-35); Albumin Level 2.8 g/dL (3.5-5.1); Alkaline Phosphatase 89 U/L (38-126); Anion Gap 5 mmol/L (8-16); Aspartate Amino Transferase 22 U/L (14-36); Bilirubin,Total 0.3 mg/dL (0.2-1.3); Blood Urea Nitrogen 97 mg/dL (7-17); Calcium 8.6 mg/dL (8.4-10.2); Carbon Dioxide 21 mmol/L (22-30); Chloride 109 mmol/L (98-107); Estimated CRCL calculation 20 ml/min; Estimated Glomerular Filt Rate 27; Glucose 105 mg/dL (65-105); Magnesium 2.5 mg/dL (1.6-2.3); Potassium 4.7 mmol/L (3.4-5.0); Sodium 135 mmol/L (137-145)
[2020-04-28] MEDS: FERROUS SULFATE 324 MG TABLET PO ×3 (08:33→16:07)
[2020-04-28] MEDS: ASPIRIN 81 MG ENTERIC TABLET PO (08:33)
[2020-04-28 08:47] LABS: Eosinophils Percent Auto 0.2 % (0-4.4); Hematocrit 27.5 % (37.0-47.0); Hemoglobin 9.2 g/dL (12.0-15.0); Immature Granulocyte Absolute 0.03 K/mm3 (0.00-0.031); Immature Granulocyte Percent A 0.7 % (0-0.5); Lymphocytes Percent Auto 26.2 % (18.3-44.2); Mean Corpuscular HGB Conc 33.5 g/dl (32-36); Mean Corpuscular Hemoglobin 29.5 pg (26-34); Mean Corpuscular Volume 88.1 fl (80-100); Mean Platelet Volume 10.3 fl (7.4-10.4); Monocytes Absolute Auto 0.5 K/mm3 (0.1-0.6); Neutrophils Absolute Auto 2.9 K/mm3 (1.3-6.7); Neutrophils Percent Auto 62.9 % (45.5-73.1); Platelet Count Result 111 k/mm3 (150-375); Red Blood Count 3.12 M/mm3 (4.2-5.4); Red Cell Distribution Width 15.8 % (11.5-14.5); White Blood Count 4.6 K/mm3 (4.5-10.0)
--- NOTE | 2020-04-28 10:20 | PC.NURSE ---
This patient, Darline Domínguez, was transferred to [[id number]] on 04/28/20 at 1020. Personal belongings sent with patient. Belongings list checked and signed with receiving [ ]. Report given to [SELENA VASQUEZ]. Appropriate documentation sent with patient.
--- NOTE | 2020-04-28 10:23 | PC.NURSE ---
This patient, Darline Domínguez, was received from [facility] on 04/28/20 at 1023. Personal belongings list checked and signed. Patient/family oriented to unit policies and routines
[2020-04-28 11:06] LABS: Lipase 495 U/L (23-300)
[2020-04-28 11:22] LABS: Iron 144 ug/dL (37-170)
[2020-04-28 11:32] LABS: Percent Iron Saturation 50 % (20-50)
--- NOTE | 2020-04-28 13:27 | PM.IMPN ---
Progress Note: A&P Assessment and Plan (1) Acute dehydration: Code(s): E86.0 - Dehydration Status: Acute Assessment and Plan: Secondary to poor p.o. intake. Patient had not been eating or drinking due to sores in her mouth from chemo. Sores have improved and she has been tolerating p.o. intake during admission. Continue gentle IV fluids monitor urine output (2) Acute kidney injury: Code(s): N17.9 - Acute kidney failure, unspecified Status: Acute Assessment and Plan: secondary to acute dehydration as above. Creatinine at presentation 3.3 and BUN 143. She has had improvement with IV fluid rehydration. Creatinine 1.8 and BUN 97 today. Continue IV fluid rehydration as above avoid nephrotoxic agents and renally dose medications (3) Acute hyperkalemia: Code(s): E87.5 - Hyperkalemia Status: Acute Assessment and Plan: Potassium was 6.4 upon presentation. She was treated with calcium gluconate, insulin and dextrose, and sodium bicarbonate. Most likely secondary to acute dehydration. She is not on any potassium sparing medications. No prior episodes of acute hyperkalemia upon review. No evidence of peaked T-waves or arrhythmia on EKG. Telemetry reviewed showing NSR. Potassium improved to 4.7 today Monitor potassium daily Continue gentle IV fluids as above. Avoid potassium-sparing agents. (4) Chemotherapy induced nausea and vomiting: Code(s): R11.2 - Nausea with vomiting, unspecified; T45.1X5A - Adverse effect of antineoplastic and immunosuppressive drugs, initial encounter Status: Acute Assessment and Plan: She reported episode of vomiting on 04/25/2020 and poor oral intake. Lipase is very mildly elevated at 495 today. Pancreatitis is considered, although seems less likely as patient has no abdominal or epigastric pain and no further episodes of nausea or vomiting. She is tolerating a regular diet at this time. Antiemetics as needed continue gentle IV fluids repeat lipase tomorrow morning. Consider additional workup if remains elevated. (5) Generalized weakness: Code(s): R53.1 - Weakness Status: Acute Assessment and Plan: Most likely secondary to malignancy/chemotherapy. Patient complains of feeling weak and fatigued. She fell on 04/26/2020 and hit her arm. She complains of no other injury, she did not hit her head, and she did not lose consciousness. She lives at home alone, and her 3 sons come to stay with her. Continue PT and OT (6) Colon cancer: Qualifiers: Colon location: unspecified part of colon Qualified Code(s): C18.9 - Malignant neoplasm of colon, unspecified Code(s): C18.9 - Malignant neoplasm of colon, unspecified Status: Chronic Assessment and Plan: S/p colectomy. She is receiving chemotherapy per Dr. Aguilar currently. Dr. Aguilar has been consulted and recommendations are appreciated. she will follow-up with him outpatient in 1 week for her next round of chemotherapy, likely at reduced dose. (7) Meningioma: Code(s): D32.9 - Benign neoplasm of meninges, unspecified Status: Suspected Assessment and Plan: CT head shows stable 7 mm hyperdense mass in left frontoparietal region, consistent with meningioma. This was also noted on MRI in November 2019. No change in size. No further evaluation required at this time. Follow-up with PCP/appropriate specialist. (8) Hypertension: Qualifiers: Hypertension type: unspecified Qualified Code(s): I10 - Essential (primary) hypertension Code(s): I10 - Essential (primary) hypertension Status: Chronic Assessment and Plan: Blood pressure reviewed today and generally well controlled in the 130-140s systolic. She is not on any antihypertensives. Monitor blood pressure closely. (9) Elevated brain natriuretic peptide (BNP) level: Co
[2020-04-28] MEDS: SODIUM CHLORIDE 0.9% IV 1,000 ML 65 ML IV CONT (16:07)
[2020-04-28] MEDS: CALCIUM CARBONATE (TUMS) 500 MG (200 MG ELEMENTAL) PO (20:22)
[2020-04-28] MEDS: MELATONIN 3 MG TABLET PO (20:22)
[2020-04-29] VITALS: PULSE 67
[2020-04-29 04:00] VITALS: PULSE 66
[2020-04-29] MEDS: CENTRAL LINE FLUSH 10 ML IV PUSH ×3 (05:39→21:47)
[2020-04-29] MEDS: SODIUM CHLORIDE 0.9% IV 1,000 ML 65 ML IV CONT ×2 (05:51→06:05)
[2020-04-29 06:00] VITALS: BP 149/53; PULSE 77; RESP 18; TEMP 36.4; O2SAT 100
[2020-04-29 06:19] LABS: Eosinophils Absolute Auto 0.1 K/mm3 (0-0.3); Eosinophils Percent Auto 1.8 % (0-4.4); Hematocrit 29.1 % (37.0-47.0); Hemoglobin 9.5 g/dL (12.0-15.0); Immature Granulocyte Absolute 0.02 K/mm3 (0.00-0.031); Immature Granulocyte Percent A 0.4 % (0-0.5); Lymphocytes Absolute Auto 2.58 K/mm3 (0.9-3.2); Lymphocytes Percent Auto 50.5 % (18.3-44.2); Mean Corpuscular HGB Conc 32.6 g/dl (32-36); Mean Corpuscular Hemoglobin 29.1 pg (26-34); Mean Corpuscular Volume 89.3 fl (80-100); Mean Platelet Volume 9.5 fl (7.4-10.4); Monocytes Absolute Auto 0.4 K/mm3 (0.1-0.6); Monocytes Percent Auto 7.8 % (2.6-8.5); Neutrophils Percent Auto 39.5 % (45.5-73.1); Platelet Count Result 118 k/mm3 (150-375); Red Blood Count 3.26 M/mm3 (4.2-5.4); White Blood Count 5.1 K/mm3 (4.5-10.0)
[2020-04-29 06:34] LABS: Alanine Aminotransferase 12 U/L (4-35); Albumin Level 2.9 g/dL (3.5-5.1); Alkaline Phosphatase 89 U/L (38-126); Anion Gap 4 mmol/L (8-16); Aspartate Amino Transferase 23 U/L (14-36); Bilirubin,Total 0.2 mg/dL (0.2-1.3); Blood Urea Nitrogen 55 mg/dL (7-17); Calcium 8.5 mg/dL (8.4-10.2); Carbon Dioxide 20 mmol/L (22-30); Chloride 114 mmol/L (98-107); Estimated CRCL calculation 29 ml/min; Estimated Glomerular Filt Rate 44; Glucose 97 mg/dL (65-105); Lipase 649 U/L (23-300); Potassium 4.3 mmol/L (3.4-5.0); Sodium 138 mmol/L (137-145)
[2020-04-29 08:00] VITALS: PULSE 69
[2020-04-29] MEDS: FERROUS SULFATE 324 MG TABLET PO ×3 (08:49→17:11)
[2020-04-29] MEDS: ASPIRIN 81 MG ENTERIC TABLET PO (08:49)
--- NOTE | 2020-04-29 10:38 | PM.IMPN ---
Progress Note: A&P Assessment and Plan (1) Acute dehydration: Code(s): E86.0 - Dehydration Status: Acute Assessment and Plan: Secondary to poor p.o. intake. Patient had not been eating or drinking due to sores in her mouth from chemo. Sores have improved and she has been tolerating p.o. intake during admission. Will d/c IVF today monitor urine output (2) Acute kidney injury: Code(s): N17.9 - Acute kidney failure, unspecified Status: Acute Assessment and Plan: secondary to acute dehydration as above. Creatinine at presentation 3.3 and BUN 143. She has had improvement with IV fluid rehydration. Creatinine 1.2 and BUN 55 today. Will d/c IVF as noted above Monitor BMP tomorrow; if continued improvement/stable on PO fluids, will likely discharge tomorrow avoid nephrotoxic agents and renally dose medications (3) Acute hyperkalemia: Code(s): E87.5 - Hyperkalemia Status: Resolved Assessment and Plan: Potassium was 6.4 upon presentation. She was treated with calcium gluconate, insulin and dextrose, and sodium bicarbonate. Most likely secondary to acute dehydration. She is not on any potassium sparing medications. No prior episodes of acute hyperkalemia upon review. No evidence of peaked T-waves or arrhythmia on EKG. Telemetry reviewed showing NSR again today. Potassium improved to 4.3 today Monitor potassium daily Will d/c IVF today Avoid potassium-sparing agents. D/c telemetry (4) Chemotherapy induced nausea and vomiting: Code(s): R11.2 - Nausea with vomiting, unspecified; T45.1X5A - Adverse effect of antineoplastic and immunosuppressive drugs, initial encounter Status: Acute Assessment and Plan: She reported episode of vomiting on 04/25/2020 and poor oral intake. Lipase is very mildly elevated at 649 today; slightly increased. Pancreatitis is considered, although seems less likely as patient has no abdominal or epigastric pain and no further episodes of nausea or vomiting. She is tolerating a regular diet at this time. Suspect lipase elevation due Acute renal failure which is now resolving Antiemetics as needed Will d/c IVF as above repeat lipase tomorrow morning. Consider additional workup if remains elevated. (5) Generalized weakness: Code(s): R53.1 - Weakness Status: Acute Assessment and Plan: Most likely secondary to malignancy/chemotherapy. Patient complains of feeling weak and fatigued. She fell on 04/26/2020 and hit her arm. She complains of no other injury, she did not hit her head, and she did not lose consciousness. She lives at home alone, and her 3 sons come to stay with her. She is interested in HH therapy Continue PT and OT Likely d/c home with HH therapy once medically stable (6) Colon cancer: Qualifiers: Colon location: unspecified part of colon Qualified Code(s): C18.9 - Malignant neoplasm of colon, unspecified Code(s): C18.9 - Malignant neoplasm of colon, unspecified Status: Chronic Assessment and Plan: S/p colectomy. She is receiving chemotherapy per Dr. Aguilar currently. Dr. Aguilar has been consulted and recommendations are appreciated. she will follow-up with him outpatient in 1 week for her next round of chemotherapy, likely at reduced dose. (7) Meningioma: Code(s): D32.9 - Benign neoplasm of meninges, unspecified Status: Suspected Assessment and Plan: CT head shows stable 7 mm hyperdense mass in left frontoparietal region, consistent with meningioma. This was also noted on MRI in November 2019. No change in size. No further evaluation required at this time. Follow-up with PCP/appropriate spe
[2020-04-29] MEDS: SALINE 0.65% NAS SOLN 44 ML BTL 1 SPRAY NASAL (10:45)
[2020-04-29 14:00] VITALS: BP 136/55; PULSE 72; RESP 18; TEMP 36.6; O2SAT 99
[2020-04-29 22:00] VITALS: BP 145/62; PULSE 83; RESP 18; TEMP 37.1; O2SAT 100
[2020-04-30] MEDS: CENTRAL LINE FLUSH 10 ML IV PUSH (05:27)
[2020-04-30 05:31] LABS: Hematocrit 28.2 % (37.0-47.0); Hemoglobin 9.3 g/dL (12.0-15.0); Mean Corpuscular Hemoglobin 29.3 pg (26-34); Mean Platelet Volume 9.2 fl (7.4-10.4); Platelet Count Result 91 k/mm3 (150-375); Red Blood Count 3.17 M/mm3 (4.2-5.4); Red Cell Distribution Width 15.9 % (11.5-14.5); White Blood Count 4.3 K/mm3 (4.5-10.0)
[2020-04-30 06:00] VITALS: BP 124/61; PULSE 80; RESP 18; TEMP 36.8; O2SAT 98
[2020-04-30 06:01] LABS: Alanine Aminotransferase 15 U/L (4-35); Albumin Level 2.9 g/dL (3.5-5.1); Alkaline Phosphatase 98 U/L (38-126); Anion Gap 1 mmol/L (8-16); Aspartate Amino Transferase 30 U/L (14-36); Bilirubin,Total 0.3 mg/dL (0.2-1.3); Blood Urea Nitrogen 32 mg/dL (7-17); Calcium 8.4 mg/dL (8.4-10.2); Carbon Dioxide 23 mmol/L (22-30); Chloride 113 mmol/L (98-107); Estimated CRCL calculation 34 ml/min; Estimated Glomerular Filt Rate 54; Glucose 85 mg/dL (65-105); Potassium 4.1 mmol/L (3.4-5.0); Sodium 137 mmol/L (137-145)
[2020-04-30] MEDS: FERROUS SULFATE 324 MG TABLET PO ×2 (09:02→11:43)
[2020-04-30] MEDS: ASPIRIN 81 MG ENTERIC TABLET PO (09:02)
--- NOTE | 2020-04-30 13:05 | PM.DS ---
DS: Admitting Diagnosis Admitting Diagnosis Admitting Diagnosis: Hyperkalemia, dehydration, acute kidney injury DS: Discharge Diagnosis Discharge Diagnosis (1) Acute dehydration: Code(s): E86.0 - Dehydration Status: Acute Assessment and Plan: Secondary to poor p.o. intake. Patient had not been eating or drinking due to sores in her mouth from chemo. Sores have improved and she has been tolerating p.o. intake during admission. F/u with Dr. Aguilar and PCP as outpatient (2) Acute kidney injury: Code(s): N17.9 - Acute kidney failure, unspecified Status: Acute Assessment and Plan: secondary to acute dehydration as above. Creatinine at presentation 3.3 and BUN 143. She has had improvement with IV fluid rehydration. Creatinine 1.00 and BUN 32 today. Will do BMP this coming week for further monitoring F/u with PCP (3) Acute hyperkalemia: Code(s): E87.5 - Hyperkalemia Status: Resolved Assessment and Plan: Potassium was 6.4 upon presentation. She was treated with calcium gluconate, insulin and dextrose, and sodium bicarbonate. Most likely secondary to acute dehydration. She is not on any potassium sparing medications. No prior episodes of acute hyperkalemia upon review. No evidence of peaked T-waves or arrhythmia on EKG. Potassium improved to 4.1 today F/u with PCP after discharge BMP this coming week (4) Chemotherapy induced nausea and vomiting: Code(s): R11.2 - Nausea with vomiting, unspecified; T45.1X5A - Adverse effect of antineoplastic and immunosuppressive drugs, initial encounter Status: Acute Assessment and Plan: She reported episode of vomiting on 04/25/2020 and poor oral intake. Lipase is very mildly elevated at 649 today; slightly increased. Pancreatitis is considered, although seems less likely as patient has no abdominal or epigastric pain and no further episodes of nausea or vomiting. She is tolerating a regular diet at this time. Suspect lipase elevation due acute renal failure which is now resolving F/u with PCP as outpatient (5) Generalized weakness: Code(s): R53.1 - Weakness Status: Acute Assessment and Plan: Most likely secondary to malignancy/chemotherapy. Patient complains of feeling weak and fatigued. She fell on 04/26/2020 and hit her arm. She complains of no other injury, she did not hit her head, and she did not lose consciousness. She lives at home alone, and her 3 sons come to stay with her. She is interested in therapy D/C home with PT/OT (6) Colon cancer: Qualifiers: Colon location: unspecified part of colon Qualified Code(s): C18.9 - Malignant neoplasm of colon, unspecified Code(s): C18.9 - Malignant neoplasm of colon, unspecified Status: Chronic Assessment and Plan: S/p colectomy. She is receiving chemotherapy per Dr. Aguilar currently. Dr. Aguilar has been consulted and recommendations are appreciated. she will follow-up with him outpatient in 1 week for her next round of chemotherapy, likely at reduced dose. (7) Meningioma: Code(s): D32.9 - Benign neoplasm of meninges, unspecified Status: Suspected Assessment and Plan: CT head shows stable 7 mm hyperdense mass in left frontoparietal region, consistent with meningioma. This was also noted on MRI in November 2019. No change in size. No further evaluation required at this time. Follow-up with PCP/appropriate specialist. (8) Hypertension: Qualifiers: Hypertension type: unspecified Qualified Code(s): I10 - Essential (primary) hypertension Code(s): I10 - Essential (primary) hypertension
[2020-04-30 14:00] VITALS: BP 147/54; PULSE 91; RESP 18; TEMP 36.9; O2SAT 100
[2020-04-30 15:51] VITALS: BP 98/56
== END 2020-04-30 15:45 | disposition home health service (06) | DRG 641 ==
LOC: ANHED 04-27 01:01 → ANHIMU 04-27 01:20 → ANH3MEDSUR 04-28 10:30
PROVIDERS: Physician Assistant; Admitting Provider Family Medicine; Emergency Provider Emergency Medicine; PCP Internal Medicine; Visit Provider Internal Medicine
DX: E87.5 Hyperkalemia (principal); N17.9 Acute kidney failure, unspecified; C18.9 Malignant neoplasm of colon, unspecified; E86.0 Dehydration; Z86.73 Personal history of transient ischemic attack (TIA), and cerebral infarction without residual deficits; I10 Essential (primary) hypertension; E78.5 Hyperlipidemia, unspecified; D32.0 Benign neoplasm of cerebral meninges; T45.1X5A Adverse effect of antineoplastic and immunosuppressive drugs, initial encounter; L50.9 Urticaria, unspecified; Z93.3 Colostomy status; K13.79 Other lesions of oral mucosa
CPT/HCPCS: 36415; 51701; 70450; 71046; 80048; 80053; 81003; 82728; 82948; 83540; 83550; 83690; 83735; 83880; 84484; 85025; 85027; 85610; 85730; 87040; 93005; 96361; 96374; 96375; 97110; 97116; 97161; 97165; 97530; 97535; 99285; A9270; G0378; J0610; J1200; J1642; J1815; J2405; J2930; J7030; J7120

== ENCOUNTER 2020-06-08 16:24 | Inpatient (IN) | payer MEDICARE, SELFPAY ==
[2020-06-08] VITALS (8 sets, daily range): BP systolic 96–142; BP diastolic 58–88; PULSE 100–133; RESP 17–22; TEMP 36.3–36.6; O2SAT 98–99; BMI 20.1
--- NOTE | ~2020-06-08 | XR_ITS ---
EXAMINATION: XR chest 2V 06/08/2020 17:52 INDICATION: Cough and shortness of breath. Weakness. PROCEDURE: AP and lateral views of the chest COMPARISON: FINDINGS: The lungs are clear. The cardiomediastinal silhouette is within normal limits. There are no pleural effusions. There is no pneumothorax suspected. Portacatheter tip in the SVC. IMPRESSION: 1: NO ACUTE CARDIOPULMONARY DISEASE. Reviewed, dictated and finalized at location A.
[2020-06-08] MEDS: LACTATED RINGERS 1,000 ML 999 ML IV CONT (17:43)
--- NOTE | 2020-06-08 18:21 | PC.NURSE ---
Pt has no IV access to draw labs. This RN attempted twice. Pt does have a port but currently has fluids running. Call placed into phlebotomy to come draw.
[2020-06-08 18:28] LABS: Add Urine Microscopic? YES; Amorphous Sediment Urine Few; Appearance Urine Cloudy (Clear); Bacteria Urine Trace /hpf; Bilirubin Urine Negative (Negative); Blood Urine 2+ (Negative); Color Urine Yellow (Yellow); Glucose Urine UA Negative (Negative); Ketones Urine Negative (Negative); Leukocyte Esterase Ur 3+ LEU/UL (Negative); Mucus Urine Rare /lpf; Nitrate Urine Negative (Negative); Protein Urine Negative (Negative); Specific Grav Ur 1.015 (1.001-1.035); Squamous Epithelial Cell Urine Many /hpf (Few); Urobilinogen Urine Negative mg/dL (<2.0); WBC Urine 21-30 /hpf
[2020-06-08 18:50] LABS: Basophils Absolute Auto 0.1 K/mm3 (0.0-0.1); Basophils Percent Auto 0.6 % (0.2-1.2); Eosinophils Absolute Auto 0.1 K/mm3 (0-0.3); Eosinophils Percent Auto 0.6 % (0-4.4); Hematocrit 31.3 % (37.0-47.0); Hemoglobin 10.8 g/dL (12.0-15.0); Immature Granulocyte Absolute 0.02 K/mm3 (0.00-0.031); Immature Granulocyte Percent A 0.2 % (0-0.5); Lymphocytes Absolute Auto 1.04 K/mm3 (0.9-3.2); Lymphocytes Percent Auto 11.5 % (18.3-44.2); Mean Corpuscular HGB Conc 34.5 g/dl (32-36); Mean Corpuscular Hemoglobin 32.7 pg (26-34); Mean Corpuscular Volume 94.8 fl (80-100); Mean Platelet Volume 9.6 fl (7.4-10.4); Monocytes Percent Auto 11.1 % (2.6-8.5); Neutrophils Absolute Auto 6.9 K/mm3 (1.3-6.7); Platelet Count Result 338 k/mm3 (150-375); Red Cell Distribution Width 22.8 % (11.5-14.5); White Blood Count 9.1 K/mm3 (4.5-10.0)
--- NOTE | 2020-06-08 18:53 | ED.WEAKNESS ---
HPI - Weakness General Chief complaint: Weakness Stated complaint: WEAKNESS Time Seen by Provider: 06/08/20 16:32 Source: patient and family Mode of arrival: ambulatory Limitations: no limitations History of Present Illness HPI Narrative: 75-year-old female Sounds like she started chemotherapy about a month ago for either stomach cancer or colon cancer She is taking oral chemotherapy pills daily Reports over the last several days that she has been progressively weak having trouble just getting up and walking around Her appetite is not too bad, she does not have any sores in her mouth She does not have a fever or cough or shortness of breath She is nauseated but does not really have abdominal pain and does not have diarrhea although she has an ostomy so it is hard to tell; her surgery was done at [facility] Medications Medication Instructions Recorded Confirmed ferrous sulfate 324 mg PO TID 03/20/20 04/27/20 ondansetron 4 mg PO Q6H PRN 04/05/20 04/27/20 capecitabine 500 mg 06/08/20 Allergies Allergy/AdvReac Type Severity Reaction Status Date / Time No Known Allergies Allergy Verified 03/02/20 13:01 Review of Systems Review of Systems: All systems reviewed & are unremarkable except as noted in HPI and below Constitutional: Constitutional: Denies chills, Reports fatigue, Denies fever(s), Denies headache(s) and Reports weakness Eyes: Eyes: Denies change in vision and Denies other visual disturbances ENT: Denies headache(s), Denies epistaxis, Denies nasal congestion and Denies sore throat Cardiovascular: Cardiovascular: Denies chest pain, Denies leg edema, Denies palpitations and Denies dyspnea Respiratory: Respiratory: Denies cough, Denies dyspnea and Denies wheezing Gastrointestinal: Gastrointestinal: Denies abdominal pain, Denies diarrhea, Reports nausea and Denies vomiting Genitourinary: Genitourinary: Denies hematuria, Denies urinary frequency and Denies dysuria Musculoskeletal: Musculoskeletal: Reports myalgias, Denies deformity, Denies arthralgias, Denies joint swelling, Denies muscle weakness and Denies numbness Integumentary/Breasts: Skin/Breast: Denies rash, Denies unusual bruising and Denies wounds Neurologic: Denies Abnormal speech present, Denies headache(s), Denies focal weakness, Denies numbness and Reports weakness Psychiatric: Psychiatric: Reports no additional psychiatric complaints Endocrine: Endocrine: Reports fatigue and Denies palpitations Hematologic/Lymphatic: Hematologic/Lymphatic: Denies easy bleeding and Denies easy bruising Allergic/Immunologic: Allergic/Immunologic: Denies wheezing PMFSH Past Medical History Medical History (Updated 06/08/20 @ 19:00 by Maikel Stewart MD) Acute CVA (cerebrovascular accident) Colon cancer Hyperlipidemia Hypertension Surgical History Surgical History H/O colectomy History of tubal ligation 1972 Family History Family History Son Cancer unsure of type of caner, reportedly on his leg. Diabetes mellitus Daughter Cerebrovascular accident Diabetes mellitus Social History Social History Social History: Ms. Domínguez lives at home by herself in [place]. She denies alcohol or substance use. Never smoker. She tells me she walks independently without a cane or walker normally. She has a granddaughter, Salud, who checks in on her. She designates Salud to be her surrogate decision maker. Smoking status: Never smoker Alcohol intake: never Substance use: never Substance use type: does not use Gender identity (if verbalized by the patient): Female Spiritual care concerns: No Agree to blood products: Yes Exam Const: General: no acute distress, well developed, alert and awake Orientation/consciousness: patient oriented x3
[2020-06-08 19:01] LABS: Alanine Aminotransferase 62 U/L (4-35); Albumin Level 4.2 g/dL (3.5-5.1); Alkaline Phosphatase 218 U/L (38-126); Anion Gap 15 mmol/L (8-16); Aspartate Amino Transferase 52 U/L (14-36); Bilirubin,Total 0.8 mg/dL (0.2-1.3); Blood Urea Nitrogen 93 mg/dL (7-17); Calcium 9.6 mg/dL (8.4-10.2); Carbon Dioxide 22 mmol/L (22-30); Chloride 92 mmol/L (98-107); Estimated CRCL calculation 13 ml/min; Estimated Glomerular Filt Rate 17; Glucose 115 mg/dL (65-105); Potassium 5.4 mmol/L (3.4-5.0); Sodium 129 mmol/L (137-145)
--- NOTE | 2020-06-08 19:37 | ECG_ITS ---
Measurements Intervals [place] Rate: 98 P: 60 MD: 195 QRS: -65 QRSD: 88 T: 80 QT: 358 QTc: 459 Interpretive Statements SINUS RHYTHM LEFT AXIS DEVIATION POSSIBLE LEFT ATRIAL ENLARGEMENT CANNOT RULE OUT SEPTAL INFARCT, AGE INDETERMINATE INFERIOR INFARCT, AGE INDETERMINATE BORDERLINE T WAVE ABNORMALITY- HIGH LATERAL LEADS BASELINE WANDER- V2 ABNORMAL ECG Electronically Signed On 06-09-2020 6:59:08 CDT by Quincy Clarke D.O.
--- NOTE | 2020-06-08 21:08 | ADMGEN ---
This patient, Darline Domínguez, was admitted to Medical Room 258-01. Patient/family oriented to hospital policies and general routines including ID bracelet, bed and alarms, visiting hours, pain management, procedures, bathroom and other care routines, personal items, smoking policy, room service/diet, and visiting hours. Information on how to activate the Rapid Response Team has been discussed. Patient/Family are encouraged to report perceived risks to care and to ask questions if they do not understand what they are told or what they should do.
[2020-06-08] MEDS: LACTATED RINGERS 1,000 ML 125 ML IV CONT (21:59)
[2020-06-08] MEDS: FAMOTIDINE 20 MG/2 ML VIAL IV PUSH (22:41)
[2020-06-09 04:46] LABS: Basophils Absolute Auto 0.1 K/mm3 (0.0-0.1); Eosinophils Absolute Auto 0.2 K/mm3 (0-0.3); Eosinophils Percent Auto 2.9 % (0-4.4); Hematocrit 28.6 % (37.0-47.0); Hemoglobin 9.7 g/dL (12.0-15.0); Immature Granulocyte Absolute 0.02 K/mm3 (0.00-0.031); Immature Granulocyte Percent A 0.3 % (0-0.5); Lymphocytes Absolute Auto 1.68 K/mm3 (0.9-3.2); Mean Corpuscular HGB Conc 33.9 g/dl (32-36); Mean Corpuscular Hemoglobin 32.1 pg (26-34); Mean Corpuscular Volume 94.7 fl (80-100); Mean Platelet Volume 9.1 fl (7.4-10.4); Monocytes Absolute Auto 0.9 K/mm3 (0.1-0.6); Monocytes Percent Auto 14.4 % (2.6-8.5); Neutrophils Absolute Auto 3.4 K/mm3 (1.3-6.7); Neutrophils Percent Auto 54.4 % (45.5-73.1); Platelet Count Result 294 k/mm3 (150-375); Red Blood Count 3.02 M/mm3 (4.2-5.4); Red Cell Distribution Width 22.6 % (11.5-14.5); White Blood Count 6.2 K/mm3 (4.5-10.0)
[2020-06-09 04:57] LABS: Anion Gap 12 mmol/L (8-16); Blood Urea Nitrogen 86 mg/dL (7-17); Calcium 9.1 mg/dL (8.4-10.2); Carbon Dioxide 24 mmol/L (22-30); Chloride 92 mmol/L (98-107); Estimated CRCL calculation 17 ml/min; Estimated Glomerular Filt Rate 23; Glucose 114 mg/dL (65-105); Potassium 4.5 mmol/L (3.4-5.0); Sodium 128 mmol/L (137-145)
--- NOTE | 2020-06-09 05:34 | PM.IMHP ---
H&P: HPI History of Present Illness Date/Time: 06/09/20 03:50 Chief complaint: Generalized weakness Narrative: Darline Domínguez is a 75 year old female with a past medical history of colon cancer who presented to the ER for increased generalized weakness. Oral chemotherapeutic agents and FLOFOX regimen managed by Dr. Aguilar. She was hospitalized April 2020 due to acute renal failure in dehydration. She was supposed to go undergo another cycle of chemotherapy a couple of weeks ago but did not do so due to anemia. Over the last several days. She did have several hours of nausea on the but did not have any vomiting. She reports that she has had fair appetite and denies having any oral ulcers. She has been drinking protein drinks to try to keep up her nutrition. She has an ostomy in place and frequently has to take Imodium to slow her ostomy output down since she started on chemotherapy. She has had a large amount of gas in her ostomy bag. She denies any change in the color of her stool output. His stool has definitely been more watery. She has been trying to drink more water but that seems to increase her ostomy output. She denies any abdominal pain. She has not noticed any fevers, chills, chest pain or shortness of breath. She reports that she has lost 100 lb since last year. Review of Systems Review of Systems: Narrative: 12 systems were reviewed with pertinent positives and negatives per HPI. Except as documented in the HPI, all other systems were reviewed and are negative. 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 she refused a colonoscopy at that time but later followed up with an outside facility due to recurrent abdominal symptoms and had a right hemicolectomy January 08, 2020 with pathology demonstrating tumor invading through muscularis propria into pericolonic tissue with incomplete resection and retroperitoneal muscle invasion undergoing chemotherapy with FOLFOX Avastin started February 2020 Hyperlipidemia Hypertension Surgical History Surgical History (Updated 06/09/20 @ 05:54 by Ansley Chang DO) History of right hemicolectomy Jan 08 2020 History of tubal ligation 1972 Port-A-Cath in place Left subclavian Port-A-Cath insertion 03/02/2020 Family History Family History Son Cancer unsure of type of caner, reportedly on his leg. Diabetes mellitus Daughter Cerebrovascular accident Diabetes mellitus Social History Social History Social History: Ms. Domínguez lives at home by herself in [place]. She denies alcohol or substance use. Never smoker. She tells me she walks independently without a cane or walker normally. She has a granddaughter, Salud, who checks in on her. She designates Salud to be her surrogate decision maker. Smoking status: Never smoker Alcohol intake: never Substance use: never Substance use type: does not use Gender identity (if verbalized by the patient): Female Spiritual care concerns: No Agree to blood products: Yes Meds Home Medications and Allergies Home Medications Medication Instructions Recorded Confirmed Type aspirin 81 mg PO QAM #30 tablet 12/09/19 06/08/20 Rx ferrous sulfate 324 mg PO TID 03/20/20 06/08/20 History ondansetron 4 mg PO Q6H PRN 04/05/20 06/08/20 History capecitabine 1,500 mg PO BID 06/08/20 06/08/20 History loperamide [Imodium] 2 mg PO Q6H PRN 06/09/20 06/09/20 History Allergies Allergy/AdvReac Type Severity Reaction Status Date / Time No Known Allergies Allergy Verified 06/08/20 23:47 Vital Signs Vital Signs - 24 hr
[2020-06-09 06:00] VITALS: BP 119/60; PULSE 92; RESP 16; TEMP 36.6; O2SAT 100
[2020-06-09] MEDS: LACTATED RINGERS 1,000 ML 125 ML IV CONT ×2 (06:39→16:01)
[2020-06-09] MEDS: CENTRAL LINE FLUSH 10 ML IV PUSH ×2 (06:40→20:01)
--- NOTE | 2020-06-09 09:09 | P.PNIM_ITS ---
Progress Note: A&P Assessment and Plan (1) Dehydration: Code(s): E86.0 - Dehydration Status: Acute Assessment and Plan: * possibly due to large amount of ostomy output, but patient also admitted she has no appetite, eats very little maybe 10% of her meals and drinks very little water. * ordered stool cultures * Imodium has been ordered. * Continue IV fluid hydration. * regular diet with dietary supplements including Ensure to help increase her protein intake * informed the patient and her son that they should discuss Megace with her oncologist if she continues to have no appetite (2) Acute kidney injury: Code(s): N17.9 - Acute kidney failure, unspecified Status: Acute Assessment and Plan: * Due to dehydration, poor fluid intake and from large amount of ostomy output. * Repeat BMP is demonstrated improvement in creatinine. * her creatinine on May 24 was 1.3, so her creatinine of 2.1 is elevated * LFTs fluctuating mildly * UA shows a urinary tract infection with 3+ leukocytes, 21-30 WBC, trace bacteria, urine culture is pending * she received a dose of IV Rocephin in the ER and I have continued Rocephin at this time until we have urine culture results and sensitivities. I have informed the patient and son as such. * Continue IV fluid hydration and monitor electrolytes. (3) Colon cancer: Code(s): C18.9 - Malignant neoplasm of colon, unspecified Status: Acute Assessment and Plan: * The patient reports that she is supposed to have chemotherapy next week. * Will consult Dr. Aguilar * no blood on examination of ostomy contents * stool cultures ordered (4) Hyperosmolar hyponatremia: Code(s): E87.0 - Hyperosmolality and hypernatremia; E87.1 - Hypo-osmolality and hyponatremia Status: Acute Assessment and Plan: * Will continue IV fluids and monitor BMP. * Strict I&O (5) UTI (urinary tract infection): Code(s): N39.0 - Urinary tract infection, site not specified Status: Acute Assessment and Plan: * dehydration and difficulty bathing and cleaning/wiping herself may have contributed to UTI * Repeat BMP is demonstrated improvement in creatinine. * monitoring creatinine and other renal function labs * UA shows a urinary tract infection with 3+ leukocytes, 21-30 WBC, trace bacteria, urine culture is pending * she received a dose of IV Rocephin in the ER and I have continued Rocephin at this time until we have urine culture results and sensitivities. I have informed the patient and son as such. * Continue IV fluid hydration and monitor electrolytes.' * strict I and Os Subjective Date/time seen: 06/09/20 09:09 Darline was resting in bed today when I went to speak with her. Her son was at her bedside. He does not live with her but he is constantly checking on her she said. She has been taking her chemo medication but recently started to feel weak. She denies fevers and cough, and has no chest pain or abdominal pain. She admitted to not eating very much, less than 25% of meals, and also not drinking very much. She says she has no appetite, and she says she fills up fast. She was finishing her lunch when I arrived to examine her. She had picked out all of the chicken from the [employer], had eaten her ice cream, and that was it. I encouraged her and her son to discuss Mirna with her oncologist, perhaps that would help her appetite. She does drink Ensure supplements at home, and I have ordered similar supplements. She was found to have a urinary tract infection upo
--- NOTE | 2020-06-09 09:09 | PM.IMPN ---
Progress Note: A&P Assessment and Plan (1) Dehydration: Code(s): E86.0 - Dehydration Status: Acute Assessment and Plan: possibly due to large amount of ostomy output, but patient also admitted she has no appetite, eats very little maybe 10% of her meals and drinks very little water. ordered stool cultures Imodium has been ordered. Continue IV fluid hydration. regular diet with dietary supplements including Ensure to help increase her protein intake informed the patient and her son that they should discuss Megace with her oncologist if she continues to have no appetite (2) Acute kidney injury: Code(s): N17.9 - Acute kidney failure, unspecified Status: Acute Assessment and Plan: Due to dehydration, poor fluid intake and from large amount of ostomy output. Repeat BMP is demonstrated improvement in creatinine. her creatinine on May 24 was 1.3, so her creatinine of 2.1 is elevated LFTs fluctuating mildly UA shows a urinary tract infection with 3+ leukocytes, 21-30 WBC, trace bacteria, urine culture is pending she received a dose of IV Rocephin in the ER and I have continued Rocephin at this time until we have urine culture results and sensitivities. I have informed the patient and son as such. Continue IV fluid hydration and monitor electrolytes. (3) Colon cancer: Code(s): C18.9 - Malignant neoplasm of colon, unspecified Status: Acute Assessment and Plan: The patient reports that she is supposed to have chemotherapy next week. Will consult Dr. Aguilar no blood on examination of ostomy contents stool cultures ordered (4) Hyperosmolar hyponatremia: Code(s): E87.0 - Hyperosmolality and hypernatremia; E87.1 - Hypo-osmolality and hyponatremia Status: Acute Assessment and Plan: Will continue IV fluids and monitor BMP. Strict I&O (5) UTI (urinary tract infection): Code(s): N39.0 - Urinary tract infection, site not specified Status: Acute Assessment and Plan: dehydration and difficulty bathing and cleaning/wiping herself may have contributed to UTI Repeat BMP is demonstrated improvement in creatinine. monitoring creatinine and other renal function labs UA shows a urinary tract infection with 3+ leukocytes, 21-30 WBC, trace bacteria, urine culture is pending she received a dose of IV Rocephin in the ER and I have continued Rocephin at this time until we have urine culture results and sensitivities. I have informed the patient and son as such. Continue IV fluid hydration and monitor electrolytes.' strict I and Os Subjective Date/time seen: 06/09/20 09:09 Darline was resting in bed today when I went to speak with her. Her son was at her bedside. He does not live with her but he is constantly checking on her she said. She has been taking her chemo medication but recently started to feel weak. She denies fevers and cough, and has no chest pain or abdominal pain. She admitted to not eating very much, less than 25% of meals, and also not drinking very much. She says she has no appetite, and she says she fills up fast. She was finishing her lunch when I arrived to examine her. She had picked out all of the chicken from the [employer], had eaten her ice cream, and that was it. I encouraged her and her son to discuss Megace with her oncologist, perhaps that would help her appetite. She does drink Ensure supplements at home, and I have ordered similar supplements. She was found to have a urinary tract infection upon this admission and is receiving IV Rocephin. She was also noted to be dehydrated at admission and received boluses in the ER as well as started on continuous IV fluids LR at 125 mL an hour. she denied having any urinary concerns or symptoms. She does bathe herself at home, but has not been able to take a bath or shower, only bed baths, because of her port access. Review of Systems Review of
[2020-06-09] MEDS: FERROUS SULFATE 324 MG TABLET PO ×3 (09:20→16:01)
[2020-06-09] MEDS: ASPIRIN 81 MG ENTERIC TABLET PO (09:20)
[2020-06-09] MEDS: FAMOTIDINE 20 MG/2 ML VIAL IV PUSH ×2 (09:20→19:59)
--- NOTE | 2020-06-09 13:53 | PHAR ---
The patient's home med of CAPECITABINE 500mg chemotherapy has been verified.
[2020-06-09 14:00] VITALS: BP 116/53; PULSE 93; RESP 18; TEMP 36.7; O2SAT 100
[2020-06-09 15:30] VITALS: BMI 20.1
--- NOTE | 2020-06-09 16:35 | PDONCCN ---
HPI - Date of Consult Date/Time: 06/09/20 16:35 Requesting Physician: Chandni Scott NP Primary Care Provider: Buddy Vogt, MD - Consult Narrative Reason for consult: Colon cancer Narrative: Darline Domínguez is a 75 year old female This is a pleasant 75-year-old female with diagnosis of colon cancer stage IV disease. Patient is on chemotherapy with the XELOX regimen. She received initial chemotherapy with FOLFOX but did not continue due to difficulty with infusional 5 FU. She now came into hospital with generalized weakness. She was admitted to the hospital with dehydration secondary to intractable diarrheal stool in the colostomy back. She had some nausea as well. Denies any abdominal pain. She has lost significant amount of weight since her diagnosis of cancer. She also have intermittent shortness of breath without any chest pain. Denies any fevers and chills. Denies any cough. Review of Systems - Review of Systems All systems reviewed & are unremarkable except as noted in HPI and bel - Neurologic Reports weakness, Denies headache(s), Denies focal weakness, Denies numbness FOR[facility]LY [facility] Medical History: Medical History (Last Updated 06/09/20 @ 06:01 by Ansley Chang DO) Acute CVA (cerebrovascular accident) CV November 2019 demonstrates small acute infarct in the left frontal lobe Colon cancer She was admitted to the hospital November 2019 due to CVA and was found to have a pericolic gutter abscess she refused a colonoscopy at that time but later followed up with an outside facility due to recurrent abdominal symptoms and had a right hemicolectomy January 08, 2020 with pathology demonstrating tumor invading through muscularis propria into pericolonic tissue with incomplete resection and retroperitoneal muscle invasion undergoing chemotherapy with FOLFOX Avastin started February 2020 Hyperlipidemia Hypertension Surgical History: Surgical History (Last Updated 06/09/20 @ 05:54 by Ansley Chang DO) History of right hemicolectomy Jan 08 2020 History of tubal ligation 1972 Port-A-Cath in place Left subclavian Port-A-Cath insertion 03/02/2020 Family History: Family History (Last Reviewed 06/09/20 @ 05:36 by Anlsey Chang DO) Son Cancer unsure of type of caner, reportedly on his leg. Diabetes mellitus Daughter Cerebrovascular accident Diabetes mellitus - Social History Social History: Social History (Last Reviewed 06/09/20 @ 05:40 by ELYSSA Benton Gender Identity: Gender identity (if verbalized by the patient): Female Alcohol Use: Alcohol intake: never Substance Use: Substance use: never Substance use type: does not use Others: Spiritual care concerns: No Agree to blood products: Yes Smoking Status: Smoking status: Never smoker Meds Home Medications Medication Instructions Recorded Confirmed Type aspirin 81 mg PO QAM #30 tablet 12/09/19 06/08/20 Rx ferrous sulfate 324 mg PO TID 03/20/20 06/08/20 History ondansetron 4 mg PO Q6H PRN 04/05/20 06/08/20 History capecitabine 1,500 mg PO BID 06/08/20 06/08/20 History loperamide [Imodium] 2 mg PO Q6H PRN 06/09/20 06/09/20 History Allergies Allergy/AdvReac Type Severity Reaction Status Date / Time No Known Allergies Allergy Verified 06/08/20 23:47 Results - Labs CBC & Chem 7: 06/09/20 04:37 06/09/20 04:37 Labs: Short CBC 06/08/20 06/09/20 Range/Units 18:42 04:37 WBC 9.1 6.2 (4.5-10.0) K/mm3 Hgb 10.8 L 9.7 L (12.0-15.0) g/dL Hct 31.3 L 28.6 L (37.0-47.0) % Plt Count 338 D 294 (150-375) k/mm3 BMP 06/08/20 06/09/20 18:42 04:37 Sodium 129 L 128 L Potassium 5.4 H 4.5 Chloride 92 L 92 L Carbon Dioxide 22 24 BUN 93 H D 86 H Creatinine 2.70 H 2.10 H Glucose 115 H 114 H Calcium 9.6 9.1 Liver Function 06/08/20 Range/Units 18:42 Total Bilirubin 0.8 (0.2-1.3) mg/dL AST 52 H
[2020-06-09] MEDS: LOPERAMIDE HCL 2 MG CAPSULE PO (16:54)
[2020-06-09 22:00] VITALS: BP 134/54; PULSE 83; RESP 16; TEMP 37.1; O2SAT 93
[2020-06-10 05:20] LABS: IFOB Positive Control Positive; Immunochemical Fecal Occult Bl Positive (N)
[2020-06-10] MEDS: LACTATED RINGERS 1,000 ML 125 ML IV CONT ×2 (05:49→13:47)
[2020-06-10] MEDS: CENTRAL LINE FLUSH 10 ML IV PUSH ×5 (05:50→21:42)
[2020-06-10 06:00] VITALS: BP 148/56; PULSE 100; RESP 18; TEMP 36.3; O2SAT 100
[2020-06-10 07:08] LABS: Mean Corpuscular HGB Conc 34.5 g/dl (32-36); Mean Corpuscular Hemoglobin 32.8 pg (26-34); Mean Corpuscular Volume 95.1 fl (80-100); Mean Platelet Volume 10.2 fl (7.4-10.4); Platelet Count Result 261 k/mm3 (150-375); Red Blood Count 3.05 M/mm3 (4.2-5.4); Red Cell Distribution Width 22.5 % (11.5-14.5); White Blood Count 4.6 K/mm3 (4.5-10.0)
[2020-06-10 07:15] LABS: Anion Gap 7 mmol/L (8-16); Blood Urea Nitrogen 56 mg/dL (7-17); Calcium 8.7 mg/dL (8.4-10.2); Carbon Dioxide 25 mmol/L (22-30); Chloride 95 mmol/L (98-107); Estimated CRCL calculation 22 ml/min; Estimated Glomerular Filt Rate 31; Glucose 113 mg/dL (65-105); Potassium 4.3 mmol/L (3.4-5.0); Sodium 127 mmol/L (137-145)
[2020-06-10] MEDS: FAMOTIDINE 20 MG/2 ML VIAL IV PUSH (09:32)
[2020-06-10] MEDS: FERROUS SULFATE 324 MG TABLET PO ×2 (09:32→12:11)
[2020-06-10] MEDS: ASPIRIN 81 MG ENTERIC TABLET PO (09:32)
--- NOTE | 2020-06-10 12:10 | PM.IMPN ---
Progress Note: A&P Assessment and Plan (1) Dehydration: Code(s): E86.0 - Dehydration Status: Acute Assessment and Plan: possibly due to large amount of ostomy output, but patient also admitted she has no appetite, eats very little maybe 10% of her meals and drinks very little water Anorexia is likely due to stage 4 colon CA and XELOX therapy stool cultures pending Imodium prn Continue IV fluid hydration. regular diet with dietary supplements (2) Hyponatremia: Code(s): E87.1 - Hypo-osmolality and hyponatremia Status: Acute Assessment and Plan: Clinically due to dehydration 06/10 Na 127, switched IVF from LR to D5/NS at 100 ml/hr 06/10 check FENA F/u lab (3) Acute kidney injury: Code(s): N17.9 - Acute kidney failure, unspecified Status: Acute Assessment and Plan: Due to dehydration Continue IVF and encourage po intake Creatinine 06/08 2.7, 06/10 1.6 (4) Colon cancer: Qualifiers: Colon location: unspecified part of colon Qualified Code(s): C18.9 - Malignant neoplasm of colon, unspecified Code(s): C18.9 - Malignant neoplasm of colon, unspecified Status: Acute Assessment and Plan: Due for XELOX chemo next week, but not tolerating it well Also did not tolerate FOLFOX well With stage 4 disease, intolerance of therapy, and declining functional status, her prognosis is very poor. (5) Abnormal urinalysis: Code(s): R82.90 - Unspecified abnormal findings in urine Status: Acute Assessment and Plan: Due to contamination from stool Stop ceftriaxone Subjective Date/time seen: 06/10/20 12:10 Interval history: 06/10: Nausea and abdominal cramps after eating stir douglas 06/08. Still with loose stool from ostomy. Denied pain other than intermittent mild abdominal cramps. Very tired. Wants to sleep most of time. Review of Systems Review of Systems: All systems reviewed & are unremarkable except as noted in HPI and below Exam Narrative: Exam Narrative: GEN: frail, elderly female in nad. Pleasant and cooperative. HEENT: sclerae nonicteric, pharyngeal mucosa pink and intact NECK: No JVD, adenopathy, or thyromegaly CHEST: Clear to auscultation. Normal effort. HEART: NL S1/S2, regular, no murmur ABDOMEN: BS+, soft, nontender, no mass, no bruits EXTREMITIES: No cyanosis, edema, or clubbing NEUROLOGIC: CN intact and symmetric to inspection. MUSCULOSKELETAL: Tone and strength symmetric. PSYCH: Alert. Oriented to person, place, and time. Objective Data Vital Signs Vital Signs: Vital Signs - 24 hr 06/09/20 14:00 06/09/20 22:00 Temperature 98.0 F 98.7 F Pulse Rate 93 83 Respiratory Rate 18 16 Blood Pressure 116/53 L 134/54 L Pulse Oximetry 100 93 Intake/Output Intake/Output: Intake & Output 06/07/20 06/08/20 06/09/20 06/10/20 23:59 23:59 23:59 23:59 Intake Total 1050 3180 1000 Output Total 1000 Balance 1050 2180 1000 Meds/Results Medications: Active Medications Generic Name Dose Route Start Last Admin Trade Name Freq PRN Reason Stop Dose Admin Acetaminophen 650 mg 06/08/20 19:48 Acetaminophen 325 Mg Tablet PO Q4H PRN Mild Pain (1-3) or Fever Aspirin 81 mg 06/09/20 09:00 06/10/20 09:32 Aspirin 81 Mg Enteric Tablet PO 81 mg QAM BABAR Administration Famotidine 20 mg 06/08/20 21:00 06/10/20 09:32 Famotidine 20 Mg/2 Ml Vial IV PUSH 20 mg Q12HR BABAR Administration Ferrous Sulfate 324 mg 06/09/20 08:00 06/10/20 09:32 Ferrous Sulfate 324 Mg Tablet PO 324 mg TIDWM BABAR Administration Heparin Sodium (Beef Lung) 50 units 06/09/20 09:00 06/10/20 09:36 Heparin Flush 50 Units/5 Ml Syringe IV PUSH Not Given QAM BABAR Heparin Sodium (Beef Lung) 50 units 06/09/20 03:53 Heparin Flush 50 Units/5 Ml Syringe IV PUSH PRN PRN after intermittent infusion Heparin Sodium (Beef Lung) 50 units 06/09/20 03:53
[2020-06-10 14:00] VITALS: BP 119/57; PULSE 83; RESP 18; TEMP 37; O2SAT 100
[2020-06-10] MEDS: DEXTROSE 5%/0.9% SOD CHL 1,000 ML 100 ML IV CONT (17:07)
[2020-06-10 19:00] LABS: Creatinine Urine 93.9 mg/dL
[2020-06-10 19:15] VITALS: BP 148/56; PULSE 100; RESP 18; TEMP 36.3; O2SAT 100
[2020-06-10 19:22] LABS: Sodium Urine Random < 5 meq/L
[2020-06-10 20:00] VITALS: BP 112/41; PULSE 90; RESP 16; TEMP 36.4; O2SAT 98
--- NOTE | 2020-06-11 01:20 | PC.NURSE ---
Daylight Savings Time For Daylight Savings Time Ending in the Fall - Clocks are moved back. For Daylight Savings Time Beginning in the Spring - Clocks are moved ahead. For [facility], the time of change occurs at 0200 hrs. Time is taken from the client server programmer. This entry on the patient's chart recognizes the change in time reflected during documentation. Example: 2 entries for vital signs may be charted for 0200 hrs.
[2020-06-11] MEDS: DEXTROSE 5%/0.9% SOD CHL 1,000 ML 100 ML IV CONT ×2 (02:27→12:42)
[2020-06-11] MEDS: CENTRAL LINE FLUSH 10 ML IV PUSH ×4 (05:55→21:10)
[2020-06-11 06:00] VITALS: BP 142/55; PULSE 93; RESP 18; TEMP 36.3; O2SAT 99
[2020-06-11] MEDS: LOPERAMIDE HCL 2 MG CAPSULE PO ×2 (06:11→21:10)
[2020-06-11] MEDS: ASPIRIN 81 MG ENTERIC TABLET PO (09:05)
[2020-06-11 14:00] VITALS: BP 128/50; PULSE 89; RESP 18; TEMP 37; O2SAT 100
--- NOTE | 2020-06-11 16:06 | P.PNIM_ITS ---
Progress Note: A&P Assessment and Plan (1) Dehydration: Code(s): E86.0 - Dehydration Status: Acute Assessment and Plan: * possibly due to large amount of ostomy output, but patient also admitted she has no appetite, eats very little maybe 10% of her meals and drinks very little water * Anorexia is likely due to stage 4 colon CA and XELOX therapy * stool cultures pending * Imodium prn * Continue IV fluid hydration. * holding off on the Megace due to current chemotherapy * regular diet with dietary supplements (2) Hyponatremia: Code(s): E87.1 - Hypo-osmolality and hyponatremia Status: Acute Assessment and Plan: * Clinically due to dehydration, from Chemotherapy-induced diarrhea. * Heme/Onc ordered her to take Imodium until stool is more formed. * 06/10 Na 127, switched IVF from LR to D5/NS at 100 ml/hr * 06/10 check FENA * F/u labs in morning (3) Acute kidney injury: Code(s): N17.9 - Acute kidney failure, unspecified Status: Acute Assessment and Plan: * Due to dehydration * Chemotherapy-induced anemia. No need for transfusion. Further worsening of anemia is due to poor renal function. * Continue IVF and encourage po intake * Creatinine 06/08 2.7, 06/10 1.6, * monitoring I/Os for abililty to maintain her own hydration * stopping IVFs today, repeating labs in morning. (4) Colon cancer: Qualifiers: Colon location: unspecified part of colon Qualified Code(s): C18.9 - Malignant neoplasm of colon, unspecified Code(s): C18.9 - Malignant neoplasm of colon, unspecified Status: Acute Assessment and Plan: * Metastatic colon cancer. * Patient is on chemotherapy with XELOX regimen. * Due for XELOX chemo next week, but not tolerating it well * hold Xeloda due to prerenal azotemia which is secondary to dehydration. * Also did not tolerate FOLFOX well * She was on chemotherapy with FOLFOX prior to that that she has difficulty tolerating with infusional 5 FU. Now patient came into the hospital with chemotherapy-induced side effects mainly diarrheal stool in the colostomy back as well as nausea and vomiting and dehydration. * With stage 4 disease, intolerance of therapy, and declining functional status, her prognosis is very poor. * She will follow-up with Heme/Onc in the office for further management and possible dose reduction on her chemotherapy. (5) Abnormal urinalysis: Code(s): R82.90 - Unspecified abnormal findings in urine Status: Acute Assessment and Plan: * Due to contamination from stool * Stop ceftriaxone * urine culture showed no infection, only colonizers * rechecking CBC in morning * no fevers noted. * episodes of intermittent incontinence - may be related to weakness Additional Plan . Subjective Date/time seen: 06/11/20 16:06 Darline is resting in bed comfortably, eating a small cup of jello. Informed the patient that her C diff stool culture was negative and that her urine culture did not show infection; so she is not needing any antibiotics IV or oral. She is medically ready for discharge, but we will now need to find a safe location for her to discharge to and receive PT/OT therapy. I ended up speaking to Telecommunications Linesworker Monica and patient's granddaughter Salud upon the patient's request when I wanted to discuss discharge. The patient is adamant that she will not go to group home. She is also adamant that she cannot go home because she does not feel safe, she feels too weak. The patient is her own power of assistant city attorney and makes her ow
--- NOTE | 2020-06-11 16:06 | PM.IMPN ---
Progress Note: A&P Assessment and Plan (1) Dehydration: Code(s): E86.0 - Dehydration Status: Acute Assessment and Plan: possibly due to large amount of ostomy output, but patient also admitted she has no appetite, eats very little maybe 10% of her meals and drinks very little water Anorexia is likely due to stage 4 colon CA and XELOX therapy stool cultures pending Imodium prn Continue IV fluid hydration. holding off on the Megace due to current chemotherapy regular diet with dietary supplements (2) Hyponatremia: Code(s): E87.1 - Hypo-osmolality and hyponatremia Status: Acute Assessment and Plan: Clinically due to dehydration, from Chemotherapy-induced diarrhea. Heme/Onc ordered her to take Imodium until stool is more formed. 06/10 Na 127, switched IVF from LR to D5/NS at 100 ml/hr 06/10 check FENA F/u labs in morning (3) Acute kidney injury: Code(s): N17.9 - Acute kidney failure, unspecified Status: Acute Assessment and Plan: Due to dehydration Chemotherapy-induced anemia. No need for transfusion. Further worsening of anemia is due to poor renal function. Continue IVF and encourage po intake Creatinine 06/08 2.7, 06/10 1.6, monitoring I/Os for abililty to maintain her own hydration stopping IVFs today, repeating labs in morning. (4) Colon cancer: Qualifiers: Colon location: unspecified part of colon Qualified Code(s): C18.9 - Malignant neoplasm of colon, unspecified Code(s): C18.9 - Malignant neoplasm of colon, unspecified Status: Acute Assessment and Plan: Metastatic colon cancer. Patient is on chemotherapy with XELOX regimen. Due for XELOX chemo next week, but not tolerating it well hold Xeloda due to prerenal azotemia which is secondary to dehydration. Also did not tolerate FOLFOX well She was on chemotherapy with FOLFOX prior to that that she has difficulty tolerating with infusional 5 FU. Now patient came into the hospital with chemotherapy-induced side effects mainly diarrheal stool in the colostomy back as well as nausea and vomiting and dehydration. With stage 4 disease, intolerance of therapy, and declining functional status, her prognosis is very poor. She will follow-up with Heme/Onc in the office for further management and possible dose reduction on her chemotherapy. (5) Abnormal urinalysis: Code(s): R82.90 - Unspecified abnormal findings in urine Status: Acute Assessment and Plan: Due to contamination from stool Stop ceftriaxone urine culture showed no infection, only colonizers rechecking CBC in morning no fevers noted. episodes of intermittent incontinence - may be related to weakness Additional Plan . Subjective Date/time seen: 06/11/20 16:06 Darline is resting in bed comfortably, eating a small cup of jello. Informed the patient that her C diff stool culture was negative and that her urine culture did not show infection; so she is not needing any antibiotics IV or oral. She is medically ready for discharge, but we will now need to find a safe location for her to discharge to and receive PT/OT therapy. I ended up speaking to Network Technology Instructor Monica and patient's granddaughter Salud upon the patient's request when I wanted to discuss discharge. The patient is adamant that she will not go to correction. She is also adamant that she cannot go home because she does not feel safe, she feels too weak. The patient is her own power of immigration attorney and makes her own decisions. Her children her sons and her grandchildren are not power of attorneys. Her primary care provider will only start home physical therapy and occupational therapy if he can evaluate and see her prior to ordering those therapies. We will need to have the family arrange for an appointment to see her PCP as soon as possible after discharge. When I spoke with her granddaughter today, I encourage
[2020-06-11] MEDS: MEGESTROL ACETATE (*CHEMO) 40 MG TABLET PO ×2 (17:04→21:10)
[2020-06-11 17:10] VITALS: PULSE 97
[2020-06-11 20:00] VITALS: PULSE 95
[2020-06-11 22:00] VITALS: BP 119/45; PULSE 93; RESP 21; TEMP 37; O2SAT 100
[2020-06-12] VITALS (8 sets, daily range): BP systolic 102–143; BP diastolic 44–77; PULSE 83–96; RESP 18–21; TEMP 36.4–37.1; O2SAT 100
[2020-06-12 05:28] LABS: Basophils Percent Auto 0.6 % (0.2-1.2); Eosinophils Absolute Auto 0.3 K/mm3 (0-0.3); Eosinophils Percent Auto 5.2 % (0-4.4); Hematocrit 25.4 % (37.0-47.0); Hemoglobin 8.5 g/dL (12.0-15.0); Immature Granulocyte Absolute 0.21 K/mm3 (0.00-0.031); Immature Granulocyte Percent A 4.2 % (0-0.5); Lymphocytes Absolute Auto 1.43 K/mm3 (0.9-3.2); Lymphocytes Percent Auto 28.8 % (18.3-44.2); Mean Corpuscular HGB Conc 33.5 g/dl (32-36); Mean Corpuscular Hemoglobin 32.8 pg (26-34); Mean Corpuscular Volume 98.1 fl (80-100); Mean Platelet Volume 9.2 fl (7.4-10.4); Monocytes Absolute Auto 0.7 K/mm3 (0.1-0.6); Monocytes Percent Auto 14.1 % (2.6-8.5); Neutrophils Absolute Auto 2.3 K/mm3 (1.3-6.7); Neutrophils Percent Auto 47.1 % (45.5-73.1); Platelet Count Result 213 k/mm3 (150-375); Red Blood Count 2.59 M/mm3 (4.2-5.4); Red Cell Distribution Width 22.5 % (11.5-14.5)
[2020-06-12 05:49] LABS: Alanine Aminotransferase 24 U/L (4-35); Albumin Level 2.5 g/dL (3.5-5.1); Alkaline Phosphatase 190 U/L (38-126); Anion Gap 2 mmol/L (8-16); Aspartate Amino Transferase 26 U/L (14-36); Bilirubin,Total 0.2 mg/dL (0.2-1.3); Blood Urea Nitrogen 22 mg/dL (7-17); Calcium 7.9 mg/dL (8.4-10.2); Carbon Dioxide 27 mmol/L (22-30); Chloride 103 mmol/L (98-107); Estimated CRCL calculation 34 ml/min; Estimated Glomerular Filt Rate 54; Glucose 107 mg/dL (65-105); Potassium 3.6 mmol/L (3.4-5.0); Sodium 132 mmol/L (137-145)
[2020-06-12] MEDS: DEXTROSE 5%/0.9% SOD CHL 1,000 ML 50 ML IV CONT (06:09)
[2020-06-12] MEDS: CENTRAL LINE FLUSH 10 ML IV PUSH (06:10)
[2020-06-12] MEDS: ASPIRIN 81 MG ENTERIC TABLET PO (09:00)
--- NOTE | 2020-06-12 11:07 | P.DS_ITS ---
DS: Admitting Diagnosis Admitting Diagnosis Admitting Diagnosis: Generalized weakness DS: Discharge Diagnosis Discharge Diagnosis (1) Dehydration: Code(s): E86.0 - Dehydration Status: Acute Assessment and Plan: * her intake was much better today after starting Megace * drinking more water * ate 75% of her breakfast today * Anorexia is likely due to stage 4 colon CA and XELOX therapy * stool cultures show no growth * Imodium prn * Continue oral hydration. * spoke with DR. Aguilar, he agreed with starting the Megace and discharging patient on such. * regular diet with dietary supplements (2) Hyponatremia: Code(s): E87.1 - Hypo-osmolality and hyponatremia Status: Acute Assessment and Plan: * Clinically due to dehydration, from Chemotherapy-induced diarrhea. * Heme/Onc ordered her to take Imodium until stool is more formed. * 06/10 Na 127, switched IVF from LR to D5/NS at 100 ml/hr * Sodium now improved to 132 * discussed discharge and meds with Dr Taina Aguilar * F/u labs in one week after discharge (3) Acute kidney injury: Code(s): N17.9 - Acute kidney failure, unspecified Status: Acute Assessment and Plan: * Due to dehydration * Chemotherapy-induced anemia. No need for transfusion. Further worsening of anemia is due to poor renal function. * encourage po intake and additional supplements * Creatinine 06/08 2.7, 06/10 1.6, 06/12 now 1.0 * patient will need to maintain her own hydration * repeating labs in 1 week (4) Colon cancer: Qualifiers: Colon location: unspecified part of colon Qualified Code(s): C18.9 - Malignant neoplasm of colon, unspecified Code(s): C18.9 - Malignant neoplasm of colon, unspecified Status: Acute Assessment and Plan: * Metastatic colon cancer. * Patient is on chemotherapy with XELOX regimen. * Due for XELOX chemo next week, but not tolerating it well * hold Xeloda due to prerenal azotemia which is secondary to dehydration. * Also did not tolerate FOLFOX well * She was on chemotherapy with FOLFOX prior to that that she has difficulty tolerating with infusional 5 FU. Now patient came into the hospital with chemotherapy-induced side effects mainly diarrheal stool in the colostomy back as well as nausea and vomiting and dehydration. * With stage 4 disease, intolerance of therapy, and declining functional status, her prognosis is very poor. * She will follow-up with Heme/Onc in the office for further management and possible dose reduction on her chemotherapy. (5) Abnormal urinalysis: Code(s): R82.90 - Unspecified abnormal findings in urine Status: Acute Assessment and Plan: * Due to contamination from stool * Stop ceftriaxone * urine culture showed no infection, only colonizers * rechecking CBC in morning, WBC 5.0 today * no fevers noted. * episodes of intermittent incontinence - may be related to weakness DS: Summary Hospital Course Reason for hospitalization: Hyponatremia, Chemo Induced Nausea/Vomiting/Diarrhea, Weakness Hospital Course: slow improvement with hydration and nutrition Status at Discharge Functional status at discharge: uses cane/walker Overall status at discharge: patient is progressing back to baseline Time Spent with Patient Time attestation: Total time spent providing and/or coordinating discharge services:90 minutes Time spent: Greater than 30 minutes Exam Narrative: Exam Narrative: GEN: frail, elderly female in nad. Pleasant and cooperative.
--- NOTE | 2020-06-12 11:07 | PM.DS ---
DS: Admitting Diagnosis Admitting Diagnosis Admitting Diagnosis: Generalized weakness DS: Discharge Diagnosis Discharge Diagnosis (1) Dehydration: Code(s): E86.0 - Dehydration Status: Acute Assessment and Plan: her intake was much better today after starting Megace drinking more water ate 75% of her breakfast today Anorexia is likely due to stage 4 colon CA and XELOX therapy stool cultures show no growth Imodium prn Continue oral hydration. spoke with DR. Aguilar, he agreed with starting the Megace and discharging patient on such. regular diet with dietary supplements (2) Hyponatremia: Code(s): E87.1 - Hypo-osmolality and hyponatremia Status: Acute Assessment and Plan: Clinically due to dehydration, from Chemotherapy-induced diarrhea. Heme/Onc ordered her to take Imodium until stool is more formed. 06/10 Na 127, switched IVF from LR to D5/NS at 100 ml/hr Sodium now improved to 132 discussed discharge and meds with Dr Taina Aguilar F/u labs in one week after discharge (3) Acute kidney injury: Code(s): N17.9 - Acute kidney failure, unspecified Status: Acute Assessment and Plan: Due to dehydration Chemotherapy-induced anemia. No need for transfusion. Further worsening of anemia is due to poor renal function. encourage po intake and additional supplements Creatinine 06/08 2.7, 06/10 1.6, 06/12 now 1.0 patient will need to maintain her own hydration repeating labs in 1 week (4) Colon cancer: Qualifiers: Colon location: unspecified part of colon Qualified Code(s): C18.9 - Malignant neoplasm of colon, unspecified Code(s): C18.9 - Malignant neoplasm of colon, unspecified Status: Acute Assessment and Plan: Metastatic colon cancer. Patient is on chemotherapy with XELOX regimen. Due for XELOX chemo next week, but not tolerating it well hold Xeloda due to prerenal azotemia which is secondary to dehydration. Also did not tolerate FOLFOX well She was on chemotherapy with FOLFOX prior to that that she has difficulty tolerating with infusional 5 FU. Now patient came into the hospital with chemotherapy-induced side effects mainly diarrheal stool in the colostomy back as well as nausea and vomiting and dehydration. With stage 4 disease, intolerance of therapy, and declining functional status, her prognosis is very poor. She will follow-up with Heme/Onc in the office for further management and possible dose reduction on her chemotherapy. (5) Abnormal urinalysis: Code(s): R82.90 - Unspecified abnormal findings in urine Status: Acute Assessment and Plan: Due to contamination from stool Stop ceftriaxone urine culture showed no infection, only colonizers rechecking CBC in morning, WBC 5.0 today no fevers noted. episodes of intermittent incontinence - may be related to weakness DS: Summary Hospital Course Reason for hospitalization: Hyponatremia, Chemo Induced Nausea/Vomiting/Diarrhea, Weakness Hospital Course: slow improvement with hydration and nutrition Status at Discharge Functional status at discharge: uses cane/walker Overall status at discharge: patient is progressing back to baseline Time Spent with Patient Time attestation: Total time spent providing and/or coordinating discharge services:90 minutes Time spent: Greater than 30 minutes Exam Narrative: Exam Narrative: GEN: frail, elderly female in nad. Pleasant and cooperative. HEENT: sclerae nonicteric, pharyngeal mucosa pink and intact NECK: No JVD, adenopathy, or thyromegaly CHEST: Clear to auscultation. Normal effort. HEART: NL S1/S2, regular, no murmur ABDOMEN: BS+, soft, nontender, no mass, no bruits EXTREMITIES: No cyanosis, edema, or clubbing NEUROLOGIC: CN intact and symmetric to inspection. MUSCULOSKELETAL: Tone and strength symmetric. PSYCH: Alert. Oriented to person, place, and time. Const: General: coopera
[2020-06-12] MEDS: POLYSACCHARIDE IRON COMPLEX 150 MG CAPSULE PO (14:59)
[2020-06-12] MEDS: LOPERAMIDE HCL 2 MG CAPSULE PO (14:59)
[2020-06-12] MEDS: HEPARIN SOD FLUSH 500 UNITS/5 ML SYRINGE IV PUSH (14:59)
[2020-06-12] MEDS: POTASSIUM CHLORIDE 20 MEQ PACKET (FOR LIQUID) 40 MEQ PO (14:59)
[2020-06-12] MEDS: MEGESTROL ACETATE (*CHEMO) 40 MG TABLET PO (15:00)
--- NOTE | 2020-06-12 23:04 | PM.DS ---
DS: Admitting Diagnosis Admitting Diagnosis Admitting Diagnosis: Generalized weakness DS: Summary Hospital Course Reason for hospitalization: weakness, hyponatremia, dehydration Hospital Course: improved with stopping chemo, giving IVFs, started megace , providing nutritional supplementation Status at Discharge Cognitive/behavioral status at discharge: A and O x3 Functional status at discharge: uses cane/walker (but only short distances ) Overall status at discharge: patient is progressing back to baseline Time Spent with Patient Time attestation: Total time spent providing and/or coordinating discharge services: 90 minutes Time spent: Greater than 30 minutes DS: Data Data Completed and Pending Labs on day of discharge: Labs from last 24 hours 06/12/20 06/12/20 05:02 05:02 WBC 5.0 RBC 2.59 L Hgb 8.5 L Hct 25.4 L MCV 98.1 MCH 32.8 MCHC 33.5 RDW 22.5 H Plt Count 213 MPV 9.2 Immature Gran % (Auto) 4.2 H Neut % (Auto) 47.1 Lymph % (Auto) 28.8 Hubbard % (Auto) 14.1 H Eos % (Auto) 5.2 H Baso % (Auto) 0.6 Lymph # (Auto) 1.43 Hubbard # (Auto) 0.7 H Eos # (Auto) 0.3 Baso # (Auto) 0.0 Abs Immat Gran (auto) 0.21 H Absolute Neuts (auto) 2.3 Absolute Nucleated RBC 0.0 Nucleated RBC % 0.0 Sodium 132 L Potassium 3.6 Chloride 103 Carbon Dioxide 27 Anion Gap 2 L BUN 22 H D Creatinine 1.00 Estim Creat Clear Calc 34 Estimated GFR 54 L Glucose 107 H Calcium 7.9 L Total Bilirubin 0.2 AST 26 ALT 24 Alkaline Phosphatase 190 H Total Protein 5.0 L Albumin 2.5 L Discharge Plan Discharge Attending physician on discharge: Harjit Giles Consulting providers: Primo Aguilar Discharging Clinician: Chandni Scott Anticipated Discharge Date/Time: 06/12/20 14:09 Patient Disposition: Home, Self-Care Activity: may shower Diet: regular Discharge Instructions: Fall Risk, Aspiration precautions, Bleeding Precautions Patient may need around the clock care, due to her weakness and poor intake. Please arrange for such. She is unable to cook for herself or ambulate to safety if there was a fire. Tomorrow, place call and schedule yourself a follow-up appointment with your primary care provider, to be seen within 1-7 days. Please discuss the following and arrange for: 1.) HOME HEALTH CARE nursing (RN), Physical Therapy and Occupational Therapy 2-3 days a week. 2.) Labs drawn by home health nurse to monitor your significant Anemia and Hyponatremia. Patient may bath and/or shower (keeping ostomy clean and dry) but only with the use of a shower chair plus occupational therapy assisting or family hands-on assisting. Treating ANEMIA: Iron is better absorbed with Vitamin C. Take your Iron Twice a day, morning and evening, WITH meals plus a Vitamin C (chewable or otherwise). Dr. Aguilar and I agree: Take the Megace daily (helps with your appetite and eating). Take your daily iron and Vitamin B12 daily. Keep up with your oral hydration, aim for 64 oz. fluids in daily. Keep your Follow UP appointment with Dr. Aguilar to see him in 1-2 weeks. Start Home Health Nursing / PT / OT. Check with Dr. Aguilar prior to restarting CHEMO. Get CBC and CMP labs drawn in 1 week with results to PCP and Heme/Onc. Patient Instructions: Antibiotic Form, Megestrol Acetate (By mouth), Urinary Tract Infection in Women (GEN), Eating During Cancer Treatment (DC), Implanted Venous Access Port (GEN) Patient Language: Mosotho Stand Alone Forms: General Discharge Information Follow-up/Referrals: Primo Aguilar MD [Physician] - Call for Appointment (make a 1-2 weeks follow up appointment) Sin,Buddy Delgado MD [Primary Care Provider] - Call for Appointment (make a 1-5 day follow up appointment) Discharge Medications: New megestrol 400 mg/10 mL (10 mL) Suspension 400 mg PO QAM Qty: 1000 RF: 0 Continued ferrous sulfate 324 mg (65 mg iron)
== END 2020-06-12 15:41 | disposition home or self-care (01) | DRG 641 ==
LOC: ANHED 19:52 → ANH2MED 20:39
PROVIDERS: Internal Medicine; Nurse Practitioner; Admitting Provider Internal Medicine; Emergency Provider Emergency Medicine; PCP Internal Medicine; Visit Provider Internal Medicine
DX: E86.0 Dehydration (principal); N17.9 Acute kidney failure, unspecified; C18.9 Malignant neoplasm of colon, unspecified; R64 Cachexia; K52.1 Toxic gastroenteritis and colitis; E87.1 Hypo-osmolality and hyponatremia; T45.1X5A Adverse effect of antineoplastic and immunosuppressive drugs, initial encounter; R63.0 Anorexia; D64.81 Anemia due to antineoplastic chemotherapy; E78.5 Hyperlipidemia, unspecified; R82.998 Other abnormal findings in urine; I10 Essential (primary) hypertension; Z68.20 Body mass index [BMI] 20.0-20.9, adult; Z86.73 Personal history of transient ischemic attack (TIA), and cerebral infarction without residual deficits
CPT/HCPCS: 36415; 71046; 80048; 80053; 81001; 82274; 82570; 84300; 85025; 85027; 87015; 87045; 87046; 87086; 87088; 87177; 87209; 87269; 87272; 87324; 87427; 89055; 93005; 96361; 96365; 96375; 97110; 97116; 97161; 97165; 99285; A9270; G0378; J0696; J1642; J7042; J7120

== ENCOUNTER 2020-08-28 06:56 | Outpatient (CLI) | payer MEDICARE, SELFPAY ==
--- NOTE | ~2020-08-28 | CT_ITS ---
EXAMINATION: CT abdomen pelvis w con DATE: 08/28/2020 07:38 INDICATION: Malignant neoplasm of ascending colon. TECHNIQUE: Computed tomography (CT) of the abdomen and pelvis was performed with 100 mL Omnipaque 350 intravenous contrast. Automated exposure control and iterative reconstruction technique were employe d. The dose-length product was 417.65 mGy-cm. COMPARISON: PET/CT 02/17/2020 FINDINGS: The visualized portions of the lung bases demonstrate mild atelectasis. There is biatrial e nlargement of the heart. There are coronary artery calcifications. No pericardial effusion. The liver is normal. There are gallstones in the gallbladder, which is normal in size. The spleen, pancreas, a nd adrenal glands are normal. There is cortical thinning in right kidney. There is a 3 mm cyst in lef t kidney. There are no dilated loops of bowel. There are changes of right hemicolectomy. There is an ileostomy in right abdomen. There is a parastomal hernia containing nonobstructed small bowel. There are no pathologically enlarged lymph nodes. There is no free intraperitoneal fluid. Pelvic floor rela xation is noted. There is mild thoracolumbar spondylosis. IMPRESSION: 1. No evidence of metastatic disease. 2. Ileostomy with parastomal hernia containing nonobstructed small bowel. Reviewed, dictated and finalized at location B. CLEANER
== END 2020-08-28 06:57 | disposition home or self-care (01) ==
LOC: ANHIMG 06:59
PROVIDERS: PCP Internal Medicine; Visit Provider Internal Medicine Hematology & Oncology
DX: C18.2 Malignant neoplasm of ascending colon (principal); Z93.2 Ileostomy status; K43.5 Parastomal hernia without obstruction or gangrene
CPT/HCPCS: 74177; Q9967

== ENCOUNTER 2021-09-03 09:03 | Outpatient (CLI) | payer MEDICARE, SELFPAY ==
--- NOTE | ~2021-09-03 | CT_ITS ---
EXAMINATION: CT abdomen pelvis w con DATE: 09/03/2021 09:42 INDICATION: Malignant neoplasm of colon; follow-up examination TECHNIQUE: Computed tomography (CT) of the abdomen was performed without intravenous contrast. Automa johnnie exposure control and iterative reconstruction technique were employed. Exam dose: 590.94 mGy-cm total exam DLP. COMPARISON: 08/28/2020 CT abdomen pelvis FINDINGS: The lung bases are clear. No hepatic, splenic, pancreatic, adrenal or renal space occupying mass lesion is detected. There is cholelithiasis. No bile duct or pancreatic duct dilatation. No urinary tract calculus or hydroureteronephrosis. There is atherosclerotic calcification of the abdominal aorta and iliac arteries but no aneurysm. The uterus, adnexa and urinary bladder are unremarkable. No intraperitoneal or retroperitoneal or pelvic mass lesion or lymphadenopathy or ascites is detected . There is a wide approximately 5 cm right lower quadrant ventral abdominal wall parastomal hernia cont aining right colon and small bowel. Status post right partial colectomy, right ileostomy. No bowel obstruction or intraperitoneal free air is detected. Diffuse idiopathic skeletal hyperostosis of the lower thoracic spine. Degenerative change of the lum bar apophyseal joints. No suspicious osteolytic or osteosclerotic lesions are noted. IMPRESSION: Status post right partial colectomy, right ileostomy No evidence of metastatic disease Large parastomal hernia containing nonobstructed distal small bowel and right colon Cholelithiasis Reviewed, dictated and finalized at Location [facility]. Reviewed, dictated and finalized at location A. 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
[2021-09-03 09:36] LABS: Estimated Glomerular Filt Rate 40
== END 2021-09-03 09:04 | disposition home or self-care (01) ==
LOC: ANHIMG 09:07
PROVIDERS: PCP Internal Medicine; Visit Provider Surgery
DX: C18.9 Malignant neoplasm of colon, unspecified (principal); K46.9 Unspecified abdominal hernia without obstruction or gangrene; Z93.2 Ileostomy status; K80.20 Calculus of gallbladder without cholecystitis without obstruction
CPT/HCPCS: 74177; Q9967

== ENCOUNTER 2022-01-17 04:53 | Emergency (ER) | payer MEDICARE, SELFPAY ==
--- NOTE | ~2022-01-17 | CT_ITS ---
EXAMINATION: CT abdomen pelvis wo con DATE: 01/17/2022 06:06 INDICATION: Upper abdominal pain. TECHNIQUE: Computed tomography (CT) of the abdomen and pelvis was performed without intravenous contr ast. Automated exposure control and iterative reconstruction technique were employed. The dose-length product was 575.87 mGy-cm. COMPARISON: CT abdomen and pelvis 09/03/21 FINDINGS: The visualized portions of the lung bases demonstrate mild atelectasis. A calcified left emi ng nodule is consistent with old granulomatous disease. There is a 4 mm nodule in right lower lobe wi thout change, likely benign. No pleural effusion. The heart size is normal. No pericardial effusion. The liver and spleen are normal. There are gallstones in the gallbladder, which is normal in size. Th e pancreas, adrenal glands, and kidneys are normal. There is an ostomy in right abdomen with parastom al hernia containing multiple loops of bowel. There is a long Ajith pouch that terminates in the p arastomal hernia. There are no pathologically enlarged lymph nodes. There is no free intraperitoneal fluid. There is mild lumbar spondylosis. IMPRESSION: 1. Ostomy in right abdomen with parastomal hernia. 2. Cholelithiasis. No evidence of acute cholecystitis. Reviewed, dictated and finalized at location A.
[2022-01-17 04:57] VITALS: BP 155/77; PULSE 87; RESP 18; TEMP 36.1; O2SAT 100
--- NOTE | 2022-01-17 05:32 | ED.ABDPAIN ---
HPI - Abdominal Pain General Chief Complaint: Abdominal Pain Stated Complaint: ABD pain, ostomy, hernia Time Seen by Provider: 01/17/22 05:10 History of Present Illness HPI narrative: 68-year-old female with history of colon cancer status post resection with ileostomy presents here with about 6 hours of pain in her right upper quadrant, nonradiating, worse when she lays flat, no focal numbness or weakness, feels unlike any pain she has had. Also reports nausea, states that she had small amount of mucous from her bottom today. Related Data Home Medications Medication Instructions Recorded Confirmed ferrous sulfate 324 mg (65 mg 324 mg PO TID 03/20/20 09/19/21 iron) tablet,delayed release ascorbate calcium (vitamin C) 500 500 mg PO DAILY 06/20/21 09/19/21 mg tablet Allergies Allergy/AdvReac Type Severity Reaction Status Date / Time No Known Allergies Allergy Verified 01/17/22 05:19 Review of Systems Review of Systems: CONST: No fever. HEENT: No sore throat C/V: No chest pain RESP: No cough GI: Reports abdominal pain, nausea : No dysuria. M/S: No joint pain. SKIN: No rash. NEURO: [No headache or focal numbness or weakness] PSYCH: [No depression] PMFSH Past Medical History Medical History Acute CVA (cerebrovascular accident) CV November 2019 demonstrates small acute infarct in the left frontal lobe Colon cancer She was admitted to the hospital November 2019 due to CVA and was found to have a pericolic gutter abscess she refused a colonoscopy at that time but later followed up with an outside facility due to recurrent abdominal symptoms and had a right hemicolectomy January 08, 2020 with pathology demonstrating tumor invading through muscularis propria into pericolonic tissue with incomplete resection and retroperitoneal muscle invasion undergoing chemotherapy with FOLFOX Avastin started February 2020 Hyperlipidemia Hypertension Surgical History Surgical History History of right hemicolectomy Jan 08 2020 History of tonsillectomy History of tubal ligation 1971 Family History Family History Son Cancer unsure of type of caner, reportedly on his leg. Diabetes mellitus Daughter Cerebrovascular accident Diabetes mellitus Social History Social History Social History: Ms. Domínguez lives at home by herself in [place]. She denies alcohol or substance use. Never smoker. She tells me she walks independently without a cane or walker normally. She has a granddaughter, Salud, who checks in on her. She designates Salud to be her surrogate decision maker. Smoking status: Never smoker Alcohol intake: never Substance use: never Substance use type: does not use Gender identity (if verbalized by the patient): Female Spiritual care concerns: No Agree to blood products: Yes Exam Narrative: EXAMINATION OF ORGAN SYSTEMS/BODY AREAS: Constitutional: Vital signs per nursing GENERAL:[No acute distress, non-toxic appearing.] HEAD: Normal with no signs of head trauma. EYES: EOMI, conjunctiva normal LUNGS: Nonlabored breathing. HEART: [Regular rate and rhythm] ABD: [Soft], tender to palpation right upper quadrant, ileostomy intact RECTAL: No palpable area of fluctuance, small amount of mucous EXT: Normal range of motion SKIN: [No rashes or lesions.] NEURO: [Alert and oriented x 3. No gross focal sensory or strength deficits.] PSYCH: Normal affect Course Vital Signs Vital signs: Vital Signs Temperature 97.0 F L 01/17/22 04:57 Pulse Rate 87 01/17/22 04:57 Respiratory Rate 18 01/17/22 04:57 Blood Pressure 155/77 H 01/17/22 04:57 Pulse Oximetry 100 01/17/22 04:57 Temperature 97.0 F L 01/17/22 04:57 Pulse Rate 77 01/17/22 06:27 Respiratory Rate 16 01/17/22 0
[2022-01-17 05:45] LABS: Basophils Absolute Auto 0.1 K/mm3 (0.0-0.1); Basophils Percent Auto 0.5 % (0.2-1.2); Eosinophils Absolute Auto 0.1 K/mm3 (0-0.3); Eosinophils Percent Auto 1.4 % (0-4.4); Hematocrit 36.3 % (37.0-47.0); Hemoglobin 11.4 g/dL (12.0-15.0); Immature Granulocyte Absolute 0.07 K/mm3 (0.00-0.031); Immature Granulocyte Percent A 0.7 % (0-0.5); Lymphocytes Absolute Auto 1.49 K/mm3 (0.9-3.2); Lymphocytes Percent Auto 15.3 % (18.3-44.2); Mean Corpuscular HGB Conc 31.4 g/dl (32-36); Mean Corpuscular Hemoglobin 30.6 pg (26-34); Mean Corpuscular Volume 97.6 fl (80-100); Mean Platelet Volume 9.4 fl (7.4-10.4); Monocytes Absolute Auto 0.6 K/mm3 (0.1-0.6); Monocytes Percent Auto 6.3 % (2.6-8.5); Neutrophils Absolute Auto 7.4 K/mm3 (1.3-6.7); Neutrophils Percent Auto 75.8 % (45.5-73.1); Platelet Count Result 245 k/mm3 (150-375); Red Blood Count 3.72 M/mm3 (4.2-5.4); Red Cell Distribution Width 13.6 % (11.5-14.5); White Blood Count 9.8 K/mm3 (4.5-10.0)
[2022-01-17 05:52] LABS: Bacteria Urine 2+ /hpf; Mucus Urine Rare /lpf; Squamous Epithelial Cell Urine Occasional /hpf (Few)
[2022-01-17 06:01] LABS: Alanine Aminotransferase 18 U/L (6-35); Albumin Level 4.4 g/dL (3.5-5.1); Alkaline Phosphatase 143 U/L (38-126); Anion Gap 8 mmol/L (8-16); Aspartate Amino Transferase 37 U/L (14-36); Bilirubin,Total 0.7 mg/dL (0.2-1.3); Blood Urea Nitrogen 18 mg/dL (7-17); Calcium 9.7 mg/dL (8.4-10.2); Carbon Dioxide 22 mmol/L (22-30); Chloride 106 mmol/L (98-107); Estimated CRCL calculation 44 ml/min; Estimated Glomerular Filt Rate > 60; Glucose 133 mg/dL (65-110); Lipase 138 U/L (23-300); Sodium 136 mmol/L (137-145)
[2022-01-17 06:06] LABS: Add Urine Microscopic? YES; Appearance Urine Clear (Clear); Bilirubin Urine Negative (Negative); Blood Urine 1+ (Negative); Color Urine Yellow (Yellow); Glucose Urine UA Negative (Negative); Ketones Urine Negative (Negative); Leukocyte Esterase Ur Trace LEU/UL (Negative); Nitrate Urine Positive (Negative); Protein Urine 2+ mg/dL (Negative); Urobilinogen Urine 0.2 mg/dL (<2.0); pH Urine 5.5 (5.0-9.0)
[2022-01-17 06:27] VITALS: BP 183/79; PULSE 77; RESP 16; O2SAT 100
[2022-01-17 07:00] VITALS: BP 175/89; PULSE 78; RESP 18; O2SAT 99
== END 2022-01-17 07:03 | disposition home or self-care (01) ==
PROVIDERS: Emergency Provider Emergency Medicine; PCP Internal Medicine
DX: R10.11 Right upper quadrant pain (principal); E78.5 Hyperlipidemia, unspecified; I10 Essential (primary) hypertension; Z86.73 Personal history of transient ischemic attack (TIA), and cerebral infarction without residual deficits
CPT/HCPCS: 36415; 74176; 80053; 81001; 83690; 85025; 87077; 87086; 87186; 96365; 99284; J0131

== ENCOUNTER 2022-07-09 01:27 | Day surgery (SDC) | payer MEDICARE, SELFPAY ==
[2022-06-28 14:16] VITALS: BMI 29.7
[2022-07-09 11:07] VITALS: BP 170/68; PULSE 101; RESP 18; TEMP 36.1; O2SAT 100
--- NOTE | 2022-07-09 11:23 | WPDANESEPPF ---
Anes - Initial Pre Proc Eval Procedure: Operation Date: 07/09/22 12:30 Proposed Procedures p Colonoscopy - Simone Conrad MD Date/Time: 07/09/22 11:23 Surgeon: Simone Conrad MD Pre Op Diagnosis: Hx of colon cancer Patient Data Age: 77 Gender: F Height: 1.6 m Weight: 74 kg Last Vital Signs Temp 36.1 C L 07/09/22 11:07 Pulse 101 H 07/09/22 11:07 Resp 18 07/09/22 11:07 BP 170/68 H 07/09/22 11:07 Pulse Ox 100 07/09/22 11:07 O2 Del Method Room Air 07/09/22 11:07 Allergies Allergy/AdvReac Type Severity Reaction Status Date / Time No Known Allergies Allergy Verified 07/09/22 11:07 Home Medications Medication Instructions Recorded Confirmed Type aspirin 81 mg tablet,delayed 81 mg PO QAM #30 tabs 12/09/19 07/09/22 Rx release ferrous sulfate 324 mg (65 mg 324 mg PO DAILY 03/20/20 07/09/22 History iron) tablet,delayed release ascorbate calcium (vitamin C) 500 500 mg PO DAILY 06/20/21 07/09/22 History mg tablet Patient hx anesthesia problems: none Family hx anesthesia problems: none Results Review: All pre-operative results and documents have been reviewed as part of the pre-operative evaluation. [facility] Past Medical History Medical History Acute CVA (cerebrovascular accident) CV November 2019 demonstrates small acute infarct in the left frontal lobe Colon cancer She was admitted to the hospital November 2019 due to CVA and was found to have a pericolic gutter abscess she refused a colonoscopy at that time but later followed up with an outside facility due to recurrent abdominal symptoms and had a right hemicolectomy January 08, 2020 with pathology demonstrating tumor invading through muscularis propria into pericolonic tissue with incomplete resection and retroperitoneal muscle invasion undergoing chemotherapy with FOLFOX Avastin started February 2020 Hyperlipidemia Hypertension Surgical History Surgical History History of right hemicolectomy Jan 08 2020 History of tonsillectomy History of tubal ligation 1972 Family History Family History Son Cancer unsure of type of caner, reportedly on his leg. Diabetes mellitus Daughter Cerebrovascular accident Diabetes mellitus Social History Social History Social History: Ms. Domínguez lives at home by herself in [place]. She denies alcohol or substance use. Never smoker. She tells me she walks independently without a cane or walker normally. She has a granddaughter, Salud, who checks in on her. She designates Salud to be her surrogate decision maker. Smoking status: Never smoker Alcohol intake: never Substance use: never Substance use type: does not use Living arrangements: with family Gender identity (if verbalized by the patient): Female Spiritual care concerns: No Agree to blood products: Yes Anes - Eval Final PreProcedure Day of Procedure 07/09/22 11:23 Patient weight: overweight Heart: regular rate and rhythm Lungs: clear to auscultation Airway: Mallampati scale class II Neurological: alert and oriented Last oral intake: >/= 8 hours ASA classification: III Emergent: no Anesthetic plan: proceed Anesthesia type and monitoring: general GIVS and standard monitoring Results Review: All pre-operative results and documents have been reviewed as part of the pre-operative evaluation. Informed Consent: The patient's anesthetic plan and its attendant risks and benefits were discussed with the patient/family/POA. Questions were solicited and answers provided to the satisfaction of the patient/family/POA.
[2022-07-09] MEDS: LACTATED RINGERS 1,000 ML 150 ML IV CONT (11:29)
--- NOTE | 2022-07-09 11:52 | PM.HPGS ---
History of Present Illness History of Present Illness Consent: Risks, benefits, and alternatives have been discussed and questions answered. Patient agrees to proceed with procedure. Chief complaint: Hx of colon cancer Narrative: Darline Domínguez is a 77 year old female who never had a colonoscopy, she presented in 2019 with SERA and underwent right colectomy with end ileostomy and drainage of retroperitoneal abscess was performed by Dr. Castillo. Pathology showed moderately differentiated adenocarcinoma. She underwent chemotherapy managed by Dr. Aguilar. Review of Systems Constitutional: Constitutional: Denies headache(s) and Denies weakness Eyes: Eyes: Denies blurry vision ENT: Reports Normal hearing present, Denies headache(s) and Denies neck pain Cardiovascular: Cardiovascular: Denies chest pain and Denies dyspnea Respiratory: Respiratory: Denies dyspnea Gastrointestinal: Gastrointestinal: Reports no additional gastrointestinal complaints Genitourinary: Genitourinary: Denies dysuria Musculoskeletal: Musculoskeletal: Denies neck pain Integumentary/Breasts: Skin/Breast: Denies dry skin Neurologic: Reports Normal hearing present, Denies headache(s) and Denies weakness Psychiatric: Psychiatric: Denies anxiety Endocrine: Endocrine: Denies change in body appearance Hematologic/Lymphatic: Hematologic/Lymphatic: Denies easy bleeding Allergic/Immunologic: Allergic/Immunologic: Denies urticaria PMFSH Past Medical History Medical History Acute CVA (cerebrovascular accident) CV November 2019 demonstrates small acute infarct in the left frontal lobe Colon cancer She was admitted to the hospital November 2019 due to CVA and was found to have a pericolic gutter abscess she refused a colonoscopy at that time but later followed up with an outside facility due to recurrent abdominal symptoms and had a right hemicolectomy January 08, 2020 with pathology demonstrating tumor invading through muscularis propria into pericolonic tissue with incomplete resection and retroperitoneal muscle invasion undergoing chemotherapy with FOLFOX Avastin started February 2020 Hyperlipidemia Hypertension Surgical History Surgical History History of right hemicolectomy Jan 08 2020 History of tonsillectomy History of tubal ligation 1971 Family History Family History Son Cancer unsure of type of caner, reportedly on his leg. Diabetes mellitus Daughter Cerebrovascular accident Diabetes mellitus Social History Social History Social History: Ms. Domínguez lives at home by herself in [place]. She denies alcohol or substance use. Never smoker. She tells me she walks independently without a cane or walker normally. She has a granddaughter, Salud, who checks in on her. She designates Salud to be her surrogate decision maker. Smoking status: Never smoker Alcohol intake: never Substance use: never Substance use type: does not use Living arrangements: with family Gender identity (if verbalized by the patient): Female Spiritual care concerns: No Agree to blood products: Yes Meds Home Medications and Allergies Home Medications Medication Instructions Recorded Confirmed Type aspirin 81 mg tablet,delayed 81 mg PO QAM #30 tabs 12/09/19 07/09/22 Rx release ferrous sulfate 324 mg (65 mg 324 mg PO DAILY 03/20/20 07/09/22 History iron) tablet,delayed release ascorbate calcium (vitamin C) 500 500 mg PO DAILY 06/20/21 07/09/22 History mg tablet Allergies Allergy/AdvReac Type Severity Reaction Status Date / Time No Known Allergies Allergy Verified 07/09/22 11:07 Vital Signs Vital Signs - 24 hr 07/09/22 11:07 Temperature 96.9 F L Pulse Rate 101 H Respiratory Rate 18 Blood Pressure 1
[2022-07-09 12:12] VITALS: BP 199/94; PULSE 82; RESP 24; O2SAT 94
[2022-07-09 12:22] VITALS: BP 218/80; PULSE 77; RESP 22; O2SAT 100
--- NOTE | 2022-07-09 12:26 | PM.HPGS ---
History of Present Illness History of Present Illness Consent: Risks, benefits, and alternatives have been discussed and questions answered. Patient agrees to proceed with procedure. Chief complaint: Hx of colon cancer Narrative: Darline Domínguez is a 77 year old female Presents for colonoscopy. Patient has a history of carcinoma the colon requiring resection in 2016. Cancer at that time was confined to the cecum. Patient has had follow-up colonoscopies most recently 2017 revealed a very small benign polyp. Patient presents today for follow-up surveillance colonoscopy. She reports that her current weight appetite bowel movements are normal. She states that she has hemorrhoids. Review of Systems Review of Systems: Review of systems noncontributory. [facility] Past Medical History Medical History Acute CVA (cerebrovascular accident) CV November 2019 demonstrates small acute infarct in the left frontal lobe Colon cancer She was admitted to the hospital November 2019 due to CVA and was found to have a pericolic gutter abscess she refused a colonoscopy at that time but later followed up with an outside facility due to recurrent abdominal symptoms and had a right hemicolectomy January 08, 2020 with pathology demonstrating tumor invading through muscularis propria into pericolonic tissue with incomplete resection and retroperitoneal muscle invasion undergoing chemotherapy with FOLFOX Avastin started February 2020 Hyperlipidemia Hypertension Surgical History Surgical History History of right hemicolectomy Jan 08 2020 History of tonsillectomy History of tubal ligation 1971 Family History Family History Son Cancer unsure of type of caner, reportedly on his leg. Diabetes mellitus Daughter Cerebrovascular accident Diabetes mellitus Social History Social History Social History: Ms. Domínguez lives at home by herself in [place]. She denies alcohol or substance use. Never smoker. She tells me she walks independently without a cane or walker normally. She has a granddaughter, Salud, who checks in on her. She designates Salud to be her surrogate decision maker. Smoking status: Never smoker Alcohol intake: never Substance use: never Substance use type: does not use Living arrangements: with family Gender identity (if verbalized by the patient): Female Spiritual care concerns: No Agree to blood products: Yes Meds Home Medications and Allergies Home Medications Medication Instructions Recorded Confirmed Type aspirin 81 mg tablet,delayed 81 mg PO QAM #30 tabs 12/09/19 07/09/22 Rx release ferrous sulfate 324 mg (65 mg 324 mg PO DAILY 03/20/20 07/09/22 History iron) tablet,delayed release ascorbate calcium (vitamin C) 500 500 mg PO DAILY 06/20/21 07/09/22 History mg tablet Allergies Allergy/AdvReac Type Severity Reaction Status Date / Time No Known Allergies Allergy Verified 07/09/22 11:07 Vital Signs Vital Signs - 24 hr 07/09/22 11:07 07/09/22 12:12 Temperature 96.9 F L Pulse Rate 101 H 82 Respiratory Rate 18 24 H Blood Pressure 170/68 H 199/94 H Pulse Oximetry 100 94 Oxygen Delivery Room Air Room Air Exam Narrative: Physical exam reveals patient to be alert. Vital signs stable. HEENT exam is unremarkable. Patient is anicteric. Lungs are clear to auscultation and percussion. Heart is without murmur or extra sounds. Abdomen bowel sounds are present soft nontender with no organomegaly. Digital external rectal exam is normal. Assessment and Plan Assessment and plan (1) History of colon cancer: Code(s): Z85.038 - Personal history of other malignant neoplasm of large intestine Status: Acute Assessment and Plan: Patient has a
[2022-07-09 12:32] VITALS: BP 204/76; PULSE 76; RESP 25; O2SAT 96
[2022-07-09] MEDS: hydrALAZINE HCL 20 MG/ML VIAL 5 MG IV PUSH (12:33)
[2022-07-09 12:42] VITALS: BP 204/72; PULSE 79; RESP 21; O2SAT 99
[2022-07-09 12:50] VITALS: BP 184/68; PULSE 82; RESP 20; O2SAT 98
== END 2022-07-09 12:56 | disposition home or self-care (01) ==
PROVIDERS: PCP Internal Medicine; Visit Provider Internal Medicine Gastroenterology
PROC: 0DJD8ZZ Inspection of Lower Intestinal Tract, Via Natural or Artificial Opening Endoscopic (ICD-10-PCS; CPT 45378; principal; 2022-07-09 12:30)
DX: Z08 Encounter for follow-up examination after completed treatment for malignant neoplasm (principal); Z85.038 Personal history of other malignant neoplasm of large intestine; K52.9 Noninfective gastroenteritis and colitis, unspecified; K57.30 Diverticulosis of large intestine without perforation or abscess without bleeding; Z98.0 Intestinal bypass and anastomosis status; Z90.49 Acquired absence of other specified parts of digestive tract; Z93.2 Ileostomy status; I10 Essential (primary) hypertension; E78.5 Hyperlipidemia, unspecified; Z86.73 Personal history of transient ischemic attack (TIA), and cerebral infarction without residual deficits; Z79.82 Long term (current) use of aspirin
CPT/HCPCS: 45380; 88305; J0360; J2704; J7120

== ENCOUNTER 2022-07-10 21:22 | Emergency (ER) | payer MEDICARE, SELFPAY ==
--- NOTE | ~2022-07-10 | XR_ITS ---
EXAMINATION: XR chest 2V Exam Date/Time: 07/10/2022 22:00 [employer] HISTORY: weakness Comparison: 06/08/2020. RESULT: Lines, tubes, and devices: Left chest implanted port, tip terminating at the distal SVC. Lungs and pleura: Senescent changes, otherwise clear. Cardiomediastinal silhouette: Stable. Other: Free air under the right hemidiaphragm. No acute osseous finding. IMPRESSION: Pneumoperitoneum. Results reported telephonically to Christelle Portillo PA-C by Dr. Werner at 10:34 PM on 07/10/2022. Reviewed, dictated and finalized at location K. [employer]ATE BOND TRADER IMPRESSION: Pneumoperitoneum. Results reported telephonically to Christelle Portillo PA-C by Dr. Werner at 10 :34 PM on 07/10/2022.
--- NOTE | ~2022-07-10 | CT_ITS ---
EXAMINATION: CT abdomen pelvis wo con DATE: 07/10/2022 22:46 INDICATION: LLQ pain, recent colonoscopy, weakness TECHNIQUE: Computed tomography (CT) of the abdomen and pelvis was performed without intravenous contr ast. Automated exposure control and iterative reconstruction technique were employed. The dose-length product was 917.10 mGy-cm. COMPARISON: 12/17/2021. FINDINGS: Lower thorax: Small hiatal hernia. Mitral and coronary artery calcification. The tip of the implanted port terminates in the distal SVC. Bilateral lower lung scarring and dependent atelectasis Liver: Normal. Biliary/Gallbladder: Cholelithiasis. No bile duct dilation. Pancreas: Mild atrophy Spleen: Normal. Adrenals:No mass. Kidneys: Bilateral cortical thinning. No suspicious mass or hydronephrosis. GI tract: Large peristomal hernia containing loops of small bowel and the Jennings's pouch. Focal wall edema of the end of the Jennings's pouch, with retained contrast or other hyperdense intraluminal mat erial and irregular stranding adjacent to the suture line. There is free air, fluid, and inflammatory change in the hernia sac. Gas appears to be tracking along mesenteric vessels that are also present in the hernia sac. Inflammatory changes surround the hernia sac. No pneumatosis or portal gas. Dilate d loops of bowel proximal to the stomal herniation. Prior right colectomy. Mesentery/Peritoneum: Small volume free air in the upper abdomen. No free fluid. Retroperitoneum: No mass. Atherosclerotic abdominal aortic and/or arterial calcifications. Pelvis: Pelvic organs are within normal limits. Soft Tissues: Soft tissues and body wall unremarkable, except as noted above. Bones: No acute osseous finding. IMPRESSION: Large peristomal hernia in the right lower quadrant containing small and large bowel, with obstructio n of upstream small bowel. There is fluid, free air, inflammatory change within the hernia sac as wel l as pneumoperitoneum, indicating likely bowel perforation. Breakdown of the suture closure at the en d of the Jennings's pouch and/or bowel ischemia should be considered in the differential. Results reported telephonically to Christelle Portillo PA-C by Dr. Werner at 11:18 PM on 07/10/2022. Reviewed, dictated and finalized at location K. K PULLER IMPRESSION: Large peristomal hernia in the right lower quadrant containing small and large bowel, with obstruction of upstream small bowel. There is fluid, free air, infl ammatory change within the hernia sac as well as pneumoperitoneum, indicating l ikely bowel perforation. Breakdown of the suture closure at the end of the Bowser man's pouch and/or bowel ischemia should be considered in the differential. Results reported telephonically to Christelle Portillo PA-C by Dr. Werner at 11 :18 PM on 07/10/2022.
[2022-07-10 21:23] VITALS: BP 112/52; PULSE 125; RESP 35; TEMP 37.1; O2SAT 94
[2022-07-10] MEDS: SODIUM CHLORIDE 0.9% IV 1,000 ML 999 ML IV CONT (22:08)
[2022-07-10 22:14] LABS: Basophils Percent Auto 0.2 % (0.2-1.2); Eosinophils Absolute Auto 0.2 K/mm3 (0-0.3); Hematocrit 38.4 % (37.0-47.0); Hemoglobin 12.7 g/dL (12.0-15.0); Immature Granulocyte Absolute 0.15 K/mm3 (0.00-0.031); Immature Granulocyte Percent A 0.8 % (0-0.5); Lymphocytes Absolute Auto 0.97 K/mm3 (0.9-3.2); Lymphocytes Percent Auto 5.3 % (18.3-44.2); Mean Corpuscular HGB Conc 33.1 g/dl (32-36); Mean Corpuscular Hemoglobin 30.6 pg (26-34); Mean Corpuscular Volume 92.5 fl (80-100); Mean Platelet Volume 9.7 fl (7.4-10.4); Monocytes Absolute Auto 0.6 K/mm3 (0.1-0.6); Monocytes Percent Auto 3.5 % (2.6-8.5); Neutrophils Absolute Auto 16.3 K/mm3 (1.3-6.7); Neutrophils Percent Auto 89.2 % (45.5-73.1); Platelet Count Result 289 k/mm3 (150-375); Red Blood Count 4.15 M/mm3 (4.2-5.4); Red Cell Distribution Width 14.3 % (11.5-14.5); White Blood Count 18.3 K/mm3 (4.5-10.0)
--- NOTE | 2022-07-10 22:14 | ED.WEAKNESS ---
HPI - Weakness General Chief complaint: Weakness <JUAN ARMON Horne Last Filed: 07/11/22 01:28> Stated complaint: GEN WEAKNESS <JUAN RAMON Horne Last Filed: 07/11/22 01:28> Time Seen by Provider: 07/10/22 21:54 <Christelle Portillo PA-C - Last Filed: 07/11/22 01:28> History of Present Illness HPI Narrative: Patient is a 77-year-old female with a history of colon cancer status postresection and ostomy placement, here for evaluation of weakness and abdominal pain today. Patient states that she feels unwell since waking up this morning. She had a colonoscopy 2 days ago which showed colitis; this was done because of her history of adenocarcinoma and she has never had a colonoscopy in the past. Denies fevers, chills, nausea, vomiting. <JUAN RAMON Horne Last Filed: 07/11/22 01:28> Related Data Home medications: Home Medications Medication Instructions Recorded Confirmed ferrous sulfate 324 mg (65 mg 324 mg PO DAILY 03/20/20 07/09/22 iron) tablet,delayed release ascorbate calcium (vitamin C) 500 500 mg PO DAILY 06/20/21 07/09/22 mg tablet <Christelle Portillo PA-C - Last Filed: 07/11/22 01:28> Allergies/Adverse reactions: Allergies Allergy/AdvReac Type Severity Reaction Status Date / Time No Known Allergies Allergy Verified 07/10/22 22:30 <JUAN RAMON Horne Last Filed: 07/11/22 01:28> Review of Systems Review of Systems: Gen: Reports weakness. Denies fevers or chills Eyes: Denies eye pain or visual change ENT: Denies congestion Respiratory: Denies shortness of breath or cough CV: Denies chest pain or palpitations GI: Reports abdominal pain. Denies nausea, emesis or diarrhea : denies burning, urgency, frequency or hematuria Musculoskeletal: Denies back pain or muscle pain Neuro: Denies numbness, tingling, weakness or focal weakness Skin: Denies rash Except as documented, all other systems reviewed and negative <Christelle Portillo PA-C - Last Filed: 07/11/22 01:28> [facility] Past Medical History Medical History: Medical History Acute CVA (cerebrovascular accident) CV November 2019 demonstrates small acute infarct in the left frontal lobe Colon cancer She was admitted to the hospital November 2019 due to CVA and was found to have a pericolic gutter abscess she refused a colonoscopy at that time but later followed up with an outside facility due to recurrent abdominal symptoms and had a right hemicolectomy January 08, 2020 with pathology demonstrating tumor invading through muscularis propria into pericolonic tissue with incomplete resection and retroperitoneal muscle invasion undergoing chemotherapy with FOLFOX Avastin started February 2020 Hyperlipidemia Hypertension <Christelle Portillo PA-C - Last Filed: 07/11/22 01:28> Surgical History Surgical History: Surgical History History of right hemicolectomy Jan 08 2020 History of tonsillectomy History of tubal ligation 1971 <Christelle Portillo PA-C - Last Filed: 07/11/22 01:28> Family History Family History: Family History Son Cancer unsure of type of caner, reportedly on his leg. Diabetes mellitus Daughter Cerebrovascular accident Diabetes mellitus <Christelle Portillo PA-C - Last Filed: 07/11/22 01:28> Social History Social History: Social History Social History: Ms. Domínguez lives at home by herself in [place]. She denies alcohol or substance use. Never smoker. She tells me she walks independently without a cane or walker normally. She has a granddaughter, Salud, who checks in on her. She designates Salud to be her surrogate decision maker. Smoking status: Never smoker Alcohol intake:
[2022-07-10 22:28] LABS: Alanine Aminotransferase 24 U/L (6-35); Albumin Level 3.9 g/dL (3.5-5.1); Alkaline Phosphatase 134 U/L (38-126); Anion Gap 8 mmol/L (8-16); Aspartate Amino Transferase 36 U/L (14-36); Blood Urea Nitrogen 44 mg/dL (7-17); Calcium 9.2 mg/dL (8.4-10.2); Carbon Dioxide 22 mmol/L (22-30); Chloride 103 mmol/L (98-107); Estimated CRCL calculation 23 ml/min; Estimated Glomerular Filt Rate 27; Glucose 149 mg/dL (65-110); Lactic Acid Reflex 1.4 mmol/L (0.7-2.0); Potassium 4.4 mmol/L (3.4-5.0); Sodium 133 mmol/L (137-145)
[2022-07-10 22:47] LABS: Lipase 30 U/L (23-300)
--- NOTE | 2022-07-10 23:10 | PC.NURSE ---
Unable to obtain cultures. Phlebotomy called and provider made aware.
[2022-07-10 23:43] LABS: SARS-CoV-2 RNA PCR Negative
[2022-07-10 23:54] VITALS: PULSE 111
[2022-07-11 00:14] LABS: pH ABG 7.463 (7.350-7.450)
[2022-07-11 00:15] LABS: Base Excess ABG -0.4 mEq/l (+/-2.0); HCO3 ABG 22.6 mEq/l (22.0-26.0); Oxygen Saturation ABG 95.1 % (95.0-100.0); PCO2 ABG 32.3 mmHg (35.0-45.0); PO2 ABG 70.1 mmHg (80.0-100.0)
[2022-07-11 00:16] LABS: Device ROOM AIR; Fractional Inspired Oxygen 21 %; Oxyhemoglobin 93.7 % THb (90.0-100.0); PO2 FiO2 Ratio Arterial Blood 3.34 %; Site Drawn RIGHT BRACHIAL; Total Hemoglobin 12.9 g/dL (12.0-18.0)
[2022-07-11] MEDS: SODIUM CHLORIDE 0.9% IV 1,000 ML 999 ML IV CONT (00:52)
== END 2022-07-11 01:19 | disposition short-term general hospital (02) ==
PROVIDERS: Physician Assistant; Emergency Provider Emergency Medicine; PCP Internal Medicine
DX: K63.1 Perforation of intestine (nontraumatic) (principal); Z85.038 Personal history of other malignant neoplasm of large intestine; Z93.3 Colostomy status; I10 Essential (primary) hypertension; E78.5 Hyperlipidemia, unspecified; Z86.73 Personal history of transient ischemic attack (TIA), and cerebral infarction without residual deficits; Z20.822 Contact with and (suspected) exposure to COVID-19
CPT/HCPCS: 36415; 36600; 71046; 74176; 80053; 82805; 83605; 83690; 85025; 96361; 96365; 99285; J2543; J7030; U0003; U0005

== ENCOUNTER 2022-12-19 11:23 | Outpatient (CLI) | payer MEDICARE, SELFPAY ==
[2022-12-19 12:10] LABS: Hematocrit 34.7 % (37.0-47.0); Hemoglobin 10.8 g/dL (12.0-15.0)
== END 2022-12-19 11:24 | disposition home or self-care (01) ==
PROVIDERS: Anesthesiology; PCP Internal Medicine; Visit Provider Surgery
DX: D64.9 Anemia, unspecified (principal)
CPT/HCPCS: 36415; 85014; 85018

== ENCOUNTER 2022-12-23 01:24 | Day surgery (SDC) | payer MEDICARE, SELFPAY ==
--- NOTE | 2022-12-13 12:41 | PC.NURSE ---
Report to the Outpatient Waiting Room, entrance under the green pavilion located off [facility], at time _1000 on date __12/23/22 . Planned Procedure Time: _1200 . Time changes happen often and if your time is changed the preop area will call you the afternoon before. - You and your visitor will be asked to self-screen and do not enter if you have any COVID symptoms. - A mask is optional within the hospital at this time. Patients may have clear liquids (water, carbonated beverages, clear teas, apple juice) until 3 hours prior to surgery with a maximum of 20 ounces. - No food from midnight until time of surgery - Infants may have breast milk until 4 hours before surgery, infant formula 6 hours prior to surgery. - Children will be allowed to drink immediately following surgery. If applicable, please bring a bottle or sippy cup to assist with drinking. Juice, water, soda, and popsicles are readily available. For infants on formula, please bring formula the day of surgery. Pacifiers are allowed. Take the following medications with a SIP of water the morning of surgery: ___NONE DO NOT STOP ANY OF YOUR OTHER PRESCRIPTION MEDICATIONS PRIOR TO SURGERY ?EXCEPT THE FOLLOWING Medications to discontinue per physician ALL VITAMINS/SUPPLEMENTS 3 DAYS PRE OP.LAST DOSE 12/19/22____ASPIRIN PER DR HARTMAN Please no make-up, nail chilean, hairspray, perfume, deodorant, or body powder the day of surgery. No jewelry (including any body piercings) or valuables the day of surgery, leave them at home. Please take a shower or bath the night before, or the morning of, surgery with an antibacterial soap. Wear comfortable, loose fitting clothing. Children are encouraged to wear pajamas. - Jewelry must be removed prior to entering the operating room. Rings and piercings that are not removed may be cut off. - The hospital will not accept responsibility for valuables. - Please leave all valuables, including medications, at home the day of surgery. If you are going home after surgery, a licensed taxicab driver must drive you home. - NO public transportation without another adult if you receive anesthesia. - We recommend that an adult stay with you for 24 hours following discharge. - We also recommend that you do not drive, make important decision, drink alcoholic beverages, or take any drugs that were not prescribed by your health care provider for at least 24 hours after your discharge time. For Pediatric surgeries, we recommend two adults accompany the child home. Follow any additional instructions given to you from your surgeon. If you or anyone in your household have experienced Covid symptoms in the past week, please notify your surgeon or the nurse liaison at the phone number below for possible testing. Telephone instructions given to __PATIENT and asked if any additional questions and then verbalized understanding. Patient advised to call surgeon office or pre surgery nurse liaison [phone] if any additional questions.
[2022-12-13 12:56] VITALS: BMI 27.1
[2022-12-23 12:12] VITALS: BP 217/72; PULSE 94; RESP 16; TEMP 36.6; O2SAT 100
--- NOTE | 2022-12-23 12:50 | SUR.PREOP ---
dr garcia aware of bp 217/72.
[2022-12-23] MEDS: LACTATED RINGERS 1,000 ML 30 ML IV CONT (13:04)
--- NOTE | 2022-12-23 13:12 | WPDANESEPPF ---
Anes - Initial Pre Proc Eval Procedure: Operation Date: 12/23/22 14:00 Proposed Procedures p Removal Karen Cath - Pool Xie MD Date/Time: 12/23/22 13:12 Surgeon: Pool Xie MD Pre Op Diagnosis: Overlaping Malignant Neoplasm of Colon Patient Data Age: 77 Gender: F Height: 1.63 m Weight: 69.2 kg Last Vital Signs Temp 97.9 F 12/23/22 12:12 Pulse 94 12/23/22 12:12 Resp 16 12/23/22 12:12 BP 217/72 H 12/23/22 12:12 Pulse Ox 100 12/23/22 12:12 O2 Del Method Room Air 12/23/22 12:12 Allergies Allergy/AdvReac Type Severity Reaction Status Date / Time No Known Allergies Allergy Verified 12/23/22 12:18 Home Medications Medication Instructions Recorded Confirmed Type aspirin 81 mg tablet,delayed 81 mg PO QAM #30 tabs 12/09/19 12/23/22 Rx release ferrous sulfate 324 mg (65 mg 324 mg PO DAILY 03/20/20 12/23/22 History iron) tablet,delayed release ascorbate calcium (vitamin C) 500 500 mg PO DAILY 06/20/21 12/23/22 History mg tablet cyanocobalamin (vitamin B-12) 1,000 mcg PO DAILY 12/13/22 12/23/22 History 1,000 mcg capsule Patient hx anesthesia problems: none Family hx anesthesia problems: none Results Review: All pre-operative results and documents have been reviewed as part of the pre-operative evaluation. [facility] Past Medical History Medical History Acute CVA (cerebrovascular accident) CV November 2019 demonstrates small acute infarct in the left frontal lobe Colon cancer She was admitted to the hospital November 2019 due to CVA and was found to have a pericolic gutter abscess she refused a colonoscopy at that time but later followed up with an outside facility due to recurrent abdominal symptoms and had a right hemicolectomy January 08, 2020 with pathology demonstrating tumor invading through muscularis propria into pericolonic tissue with incomplete resection and retroperitoneal muscle invasion undergoing chemotherapy with FOLFOX Avastin started February 2020 Hyperlipidemia Hypertension Surgical History Surgical History History of right hemicolectomy Jan 08 2020 History of tonsillectomy History of tubal ligation 1972 Family History Family History Son Cancer unsure of type of caner, reportedly on his leg. Diabetes mellitus Daughter Cerebrovascular accident Diabetes mellitus Social History Social History Social History: Ms. Domínguez lives at home by herself in [place]. She denies alcohol or substance use. Never smoker. She tells me she walks independently without a cane or walker normally. She has a granddaughter, Salud, who checks in on her. She designates Salud to be her surrogate decision maker. Smoking status: Never smoker Alcohol intake: never Substance use: never Substance use type: does not use Living arrangements: alone Occupation/Education: retired Gender identity (if verbalized by the patient): Female Spiritual care concerns: No Agree to blood products: Yes Anes - Eval Final PreProcedure Day of Procedure 12/23/22 13:12 Patient weight: normal Heart: regular rate and rhythm Lungs: clear to auscultation Airway: Mallampati scale class II Neurological: alert and oriented Last oral intake: >/= 8 hours ASA classification: III Emergent: no Anesthetic plan: proceed Anesthesia type and monitoring: general GIVS and standard monitoring Results Review: All pre-operative results and documents have been reviewed as part of the pre-operative evaluation. Informed Consent: The patient's anesthetic plan and its attendant risks and benefits were discussed with the patient/family/POA. Questions were solicited and answers provided to the satisfaction of the patient/family/POA.
--- NOTE | 2022-12-23 13:50 | PM.IMHP ---
H&P: HPI History of Present Illness Date/Time: 12/23/22 13:50 Chief Complaint: Needs portacatheter removed Narrative: Pt with hx of colon CA treated with surgical resection and then chemotherapy. She is no disease free and presents to remove the portacatheter. Review of Systems Constitutional: Comments: The remainder of the review of systems to include constitutional, HEENT, cardiovascular, respiratory, GI, , integumentary, musculoskeletal, endocrine, immunologic, hematologic, psychiatric, and neurologic are all negative except for which is mentioned above in the HPI. [facility] Past Medical History Medical History Acute CVA (cerebrovascular accident) CV November 2019 demonstrates small acute infarct in the left frontal lobe Colon cancer She was admitted to the hospital November 2019 due to CVA and was found to have a pericolic gutter abscess she refused a colonoscopy at that time but later followed up with an outside facility due to recurrent abdominal symptoms and had a right hemicolectomy January 08, 2020 with pathology demonstrating tumor invading through muscularis propria into pericolonic tissue with incomplete resection and retroperitoneal muscle invasion undergoing chemotherapy with FOLFOX Avastin started February 2020 Hyperlipidemia Hypertension Surgical History Surgical History History of right hemicolectomy Jan 08 2020 History of tonsillectomy History of tubal ligation 1971 Family History Family History Son Cancer unsure of type of caner, reportedly on his leg. Diabetes mellitus Daughter Cerebrovascular accident Diabetes mellitus Social History Social History Social History: Ms. Domínguez lives at home by herself in [place]. She denies alcohol or substance use. Never smoker. She tells me she walks independently without a cane or walker normally. She has a granddaughter, Salud, who checks in on her. She designates Salud to be her surrogate decision maker. Smoking status: Never smoker Alcohol intake: never Substance use: never Substance use type: does not use Living arrangements: alone Occupation/Education: retired Gender identity (if verbalized by the patient): Female Spiritual care concerns: No Agree to blood products: Yes Meds Home Medications and Allergies Home Medications Medication Instructions Recorded Confirmed Type aspirin 81 mg tablet,delayed 81 mg PO QAM #30 tabs 12/09/19 12/23/22 Rx release ferrous sulfate 324 mg (65 mg 324 mg PO DAILY 03/20/20 12/23/22 History iron) tablet,delayed release ascorbate calcium (vitamin C) 500 500 mg PO DAILY 06/20/21 12/23/22 History mg tablet cyanocobalamin (vitamin B-12) 1,000 mcg PO DAILY 12/13/22 12/23/22 History 1,000 mcg capsule Allergies Allergy/AdvReac Type Severity Reaction Status Date / Time No Known Allergies Allergy Verified 12/23/22 12:18 Vital Signs Vital Signs - 24 hr 12/23/22 12:12 Temperature 36.6 C Pulse Rate 94 Respiratory Rate 16 Blood Pressure 217/72 H Pulse Oximetry 100 Oxygen Delivery Room Air Exam Narrative: Left anterior chest wall port palpable with catheter inserting into the left SC veing. No redness or rash left chest wall. No left arm swelling. Const: General: comfortable and no acute distress Neck: Neck: supple and no JVD Resp: Effort & Inspection: normal respiratory effort Auscultation: clear to auscultation bilaterally Cardio: Rate: regular rate Rhythm: regular rhythm Psych: Mental Status: mental status grossly normal Affect: normal affect Assessment and Plan Assessment and plan (1) History of colon cancer: Code(s): Z85.038 - Personal history of other malignant neoplasm of large intestine Status: Acute
--- NOTE | 2022-12-23 13:55 | WPDHPUPDATE1 ---
History and Physical Update Update Date/Time: 12/23/22 13:55 History and Physical has been reviewed, including an updated exam of the patient. There are NO changes in the patient's condition. Risks, benefits, and alternatives have been discussed and questions answered. Patient agrees to proceed with procedure.
[2022-12-23] MEDS: LIDOCAINE HCL 1% LOCAL INJ 10 ML VIAL INFILTRATE (14:03)
[2022-12-23] MEDS: ceFAZolin 2 GM/D5W 50 ML 2 GM/50 ML BAG IVPB (14:03)
[2022-12-23] MEDS: BUPIVACAINE/EPINEPHRINE 0.25% 10 ML VIAL INFILTRATE (14:03)
--- NOTE | 2022-12-23 14:58 | P.OP_ITS ---
Procedure Note - Detailed Date of Procedure 12/23/22 Pre-op Diagnosis Overlaping Malignant Neoplasm of Colon Post-op Diagnosis Same Procedure Performed Removal of left subclavian vein portacatheter Surgeon Pool Xie MD Anesthesia MAC and Local Indications Patient is a 77 year old female who was treated for colon cancer with chemotherapy after her surgery. She now has no evidence of residual disease and presents for removal of her elisa catheter. Findings None. Description of Procedure After informed consent was obtained patient brought to the operating room where she was placed supine position and then IV sedation was administered by anesthesia. The left upper anterior chest and neck region was then prepped and draped in usual sterile fashion. A time-out was then performed correctly identifying the patient as well as procedure to be performed and verifying the site marking. She was given some Ancef for perioperative IV antibiotics. I then proceeded to inject 1% lidocaine mixed with 0.5% Marcaine around the hub of the port catheter and around the port itself. I then made a transverse incision with a scalpel near the port and dissected down through the dermis skin with a scalpel. Dissection down through the subcutaneous tissues was performed utilizing the cautery until I reached the hub of the port. I then dissected down onto the catheter itself and then with gentle traction the catheter removed it from the left subclavian vein. Pressure then was held on the area the left subclavian vein for about 5minutes to achieve hemostasis. The port was then removed from the subcutaneous port pocket utilizing electrocautery. It was then discarded. I then fulgurated the fibrous capsule in the port pocket electrocautery. I then proceeded to close incision after irrigating with steril e saline solution utilizing interrupted 3-0 Vicryl sutures in the subcutaneous tissues. The skin edges were then approximated utilizing a running subcuticular 4 Monocryl suture. The incision was then cleaned and skin glue was applied to the incision. The patient tolerated the procedure well no complications. All sponges, needles, and instrument counts were correct at the end procedure. EBL was _5__cc. The patient was awakened and taken to recovery in stable and satisfactory condition. Implants None. Estimated Blood Loss 5 Drains No Packing No Pathology None sent Complications No immediate complications Condition Stable Disposition PACU [facility] Billing Surgery - Charge Forward: Surgery Billing
[2022-12-23 15:00] VITALS: BP 107/38; PULSE 73; RESP 14; O2SAT 100
[2022-12-23 15:05] VITALS: BP 175/66; PULSE 78; RESP 16
[2022-12-23 15:35] VITALS: BP 168/62; PULSE 77; RESP 16
== END 2022-12-23 15:40 | disposition home or self-care (01) ==
PROVIDERS: PCP Internal Medicine; Visit Provider Surgery
PROC: (CPT 36589; principal; 2022-12-23 14:00)
DX: Z45.2 Encounter for adjustment and management of vascular access device (principal); Z85.038 Personal history of other malignant neoplasm of large intestine; I10 Essential (primary) hypertension; E78.5 Hyperlipidemia, unspecified; Z86.73 Personal history of transient ischemic attack (TIA), and cerebral infarction without residual deficits; Z79.82 Long term (current) use of aspirin; Z90.49 Acquired absence of other specified parts of digestive tract; Z92.21 Personal history of antineoplastic chemotherapy
CPT/HCPCS: 36590; J0690; J2704; J7120